=== PATIENT | male | born 1990 | race Hispanic/Latino ===

== ENCOUNTER 2016-11-11 15:38 | Inpatient (IN) | payer BC ==
[~2016-11-11 15:38] MED LIST: NARCAN 0.4 MG/1 ML ONE
[2016-11-11] MEDS ORDERED: NACL 0.9% 1000 ML 1,000 ML ONE (15:41)
[2016-11-11] MEDS ORDERED: NARCAN 0.4 MG/1 ML IV ONE (15:51)
[2016-11-11] MEDS ORDERED: NACL 0.9% 1000 ML 1,000 ML IV ONE (15:55)
--- NOTE | 2016-11-11 16:06 | Emergency Department Report ---
HPI - General Chief Complaint: Overdose Time Seen by Provider: 11/11/16 15:53 - HPI HPI: 26-year-old male presents to the emergency department by EMS from home with the complaint of possible overdose and suicide attempt. The patient became very altered over the past 2 hours. His girlfriend found him with multiple cuts to the left forearm. 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 Allegedly he still had a bottle somewhere that had a refill on it and he went to get it filled at a pharmacy. He also has some levothyroxin from a history of hypothyroidism and has Seroquel for "sleep" and Robaxin for chronic back pains but most of these medications are accounted for. The girlfriend says that she found the rest of the benzodiazepine's and flushed them down the toilet. Patient is currently altered and/or intoxicated and therefore a poor historian. Allegedly there is no past psychiatric history or any previous suicidal ideations or attempts. ED Past Medical Hx - Past Medical History Hx Hypertension: Yes Hx Congestive Heart Failure: No Hx Diabetes: No Hx Psychiatric Treatment: Yes (Drug abuse.) Hx Asthma: No Hx COPD: No Hx HIV: No Additional medical history: Hyperthyroidism - Surgical History Additional Surgical History: unknown - Social History Smoking Status: Unknown if ever smoked Substance Use Type: None - Medications Home Medications: Home Medications Medication Instructions Recorded Confirmed Last Taken Type Gabapentin [Neurontin] 600 mg PO Q8H 11/11/16 11/11/16 Unknown History Levothyroxine [Synthroid] 100 mcg PO QAM 11/11/16 11/11/16 Unknown History Quetiapine Fumarate [SEROquel XR] 200 mg PO DAILY 11/11/16 11/11/16 Unknown History Venlafaxine HCl [Venlafaxin ER] 150 mg PO QDAY 11/11/16 11/11/16 Unknown History cloNIDine [Catapres] 0.1 mg PO BID 11/11/16 11/11/16 Unknown History ED Review of Systems ROS: Stated complaint: POSS SUICIDAL ATTEMPT Other details as noted in HPI Comment: Unobtainable due to pts medical conditions Physical Exam - Physical Exam Vital Signs: Vital Signs 11/11/16 11/11/16 15:46 15:54 Temperature 97.1 F L Pulse Rate 96 H Respiratory 18 15 Rate Blood Pressure 105/62 O2 Sat by Pulse 98 100 Oximetry Physical Exam: GENERAL: Patient is ill-appearing and unresponsive. HEENT: Normocephalic. Atraumatic. Pupils equal reactive to light bilaterally. Oropharynx clear. Patient has moist mucous membranes. Pupils equal reactive to light bilaterally. NECK: Supple. Trachea is midline. CHEST/LUNGS: Clear to auscultation. Patient has snoring respirations and shallow breathing. There is some mild tachypnea. HEART/CARDIOVASCULAR: Regular. There is no tachycardia. There is no gallop rub or murmur. ABDOMEN: Abdomen is soft, nontender. Patient has normal bowel sounds. There is no abdominal distention. SKIN: Patient has multiple abrasions to the left dorsal forearm. However there is 1 gapped laceration amongst these other abrasions well. This laceration is about 2.5 cm in length, linear but gapped by a few millimeters. No surrounding erythema, purulent discharge or any current signs of infection. NEURO: The patient has no gag reflex. He does respond some to painful stimuli at first but eventually starts to become less responsive to sternal rub and nailbed pressure. Nonverbal. Does not follow any commands. MUSCULOSKELETAL: There is no tenderness or deformity. There is no limitation range of motion with passive movement. Radial pulse +2 over 4 bilaterally. Cap refill less than 2 seconds. ED Course Vital Signs 11/11/16 11/11/16 15:46 15:54 Temperature 97.1 F L Pulse Rate 96 H Respiratory 18 15 Rate Blood Pressure 105/62 O2 Sat by Pulse 98 100 Oximetry - Reevaluation(s) Reevaluation #1: Patient did not display any hypoxia, he does not have any gag reflex. Patient is doing some abnormal shallow guppy breathing. He has snoring respirations with what appears to be occasional apneic episodes. For this reason the patient was intubated. 11/11/16 17:57 - ABG Interpretation Ph: [phone] PCO2: 43 PO2: 101 Bicarbonate: 25 Interpretation: normal - Intubation Time Out Performed: Yes Paralytic: Succinylcholine Mg Given: 100 Laryngoscope: fiberoptic video scope Size: 4 ET Tube Size: 7.5 Tube Secured Depth (cm): 24 Tube Secured Location: teeth Tube Placement Confirmation: visualized tube passing t, equal breath sounds bilat, no breath sounds over epi, confirmation by capnometr Patient Tolerated Procedure: well Intubation Complications: none - Laceration /Wound Repair Left Dorsal Arm Wound Length (cm): 2 Wound's Depth, Shape: superficial, linear Wound Explored: clean Irrigated w/ Saline (ccs): 50 Anesthesia: 1% Lidocaine Volume Anesthetic (ccs): 2 Wound Repaired With: sutures Suture Size/Type: 4:0, proline Number of Sutures: 7 Layer Closure?: No Sterile Dressing Applied?: Yes ED Medical Decision Making - Lab Data Result diagrams: 11/11/16 15:53 11/11/16 15:55 - EKG Data -: EKG Interpreted by Me EKG shows normal: sinus rhythm, axis (RAD), intervals, QRS complexes, ST-T waves Rate: normal - EKG Data When compared to previous EKG there are: previous EKG unavailable Interpretation: normal EKG - Radiology Data Radiology results: report reviewed, image reviewed interpreted by me: NChest x-ray did not show any acute process. Heart is normal shape and size. No effusions. No pneumothorax. No signs of pneumonia seen. Repeat postintubation chest x-ray shows no change in the patient's lungs or heart but there is now ET tube in place between the clavicular heads. CT of head without contrast does not show any bleed, shift, mass or any acute process. - Medical Decision Making 26-year-old male who appears to have attempted suicide by overdose of polypharmacy as well as some self inflicted wounds to the left forearm. One of them required suture to close. Tetanus vaccination was given. Patient started having short shallow snoring respirations and had no gag reflex so patient was intubated for airway protection. Urine drug screen positive for benzos, methadone and barbituates. Otherwise the patient's labs are mostly unremarkable and do not show an etiology of the patient's altered mental status. CT of the head does not show any bleed, shift, mass or any acute process. Patient was made a 1013 secondary to his suicidal ideations and attempt. Admitted to the ICU. - Differential Diagnosis polysubstance abuse, suicidal ideations, laceration, brain bleed Critical Care Time: Yes Critical care time in (mins) excluding proc time.: 35 Critical care attestation.: If time is entered above; I have spent that time in minutes in the direct care of this critically ill patient, excluding procedure time. Critical care time was done on this patient and doing his initial evaluation, multiple re- evaluations, ordering evaluation of labs, ordering and interpretation of arterial blood gas, discussion with family, disposition planning. This does not include the intubation or laceration repair procedures. Critical Care Time: 35 mins ED Disposition Clinical Impression: Overdose, Suicide attempt, Laceration, Altered mental status, Injury, self- inflicted, Polysubstance abuse Respiratory failure Qualifiers: Chronicity: acute Respiratory failure complication: hypoxia Qualified Code(s): J96.01 - Acute respiratory failure with hypoxia Disposition: OP ADMITTED IP TO THIS HOSP Is pt being admited?: Yes Condition: Serious Time of Disposition: 19:48
[2016-11-11 16:14] LABS: Urine Drugs of Abuse Note Disclamer
[2016-11-11 16:30] LABS: Bilirubin,Urine NEG (Negative); Blood,Urine NEG (Negative); Ketones,Urine NEG (Negative); Leukocyte Esterase,Urine NEG (Negative); Mucus,Urine FEW /HPF; Nitrite,Urine NEG (Negative); Urobilinogen,Urine < 2.0 mg/dL (<2.0)
[2016-11-11 16:37] LABS: Basophils % (Auto) 0.7 % (0.0-1.8); Eosinophils % (Auto) 2.1 % (0.0-4.3); Hematocrit 48.1 % (35.5-45.6); Hemoglobin 16.1 gm/dl (11.8-15.2); Mean Corpuscular HGB Conc 34 % (32-34); Mean Corpuscular Hemoglobin 30 pg (28-32); Mean Corpuscular Volume 91 fl (84-94); Platelet Count 264 K/mm3 (140-440); Red Cell Distribution Width 13.5 % (13.2-15.2); White Blood Count 10.9 K/mm3 (4.5-11.0)
--- NOTE | 2016-11-11 16:38 | XRay Report ---
PORTABLE CHEST: Psych clearance An AP portable view of the chest demonstrates a normal cardiac contour considering the limits of this technique. The lungs are clear with no evidence of infiltrate, fluid or failure. IMPRESSION: Normal portable chest.
[2016-11-11] MEDS ORDERED: DIPRIVAN 10 MG/ML 1,000 MG/100 ML BOTTLE IV ONE (16:40)
[2016-11-11 16:59] LABS: Albumin 4.4 g/dL (3.9-5); Albumin/Globulin Ratio 1.4 %; BUN/Creatinine Ratio 11.66; Bilirubin,Total 0.3 mg/dL (0.1-1.2); Blood Urea Nitrogen 7 mg/dL (9-20); Calcium 9.8 mg/dL (8.4-10.2); Carbon Dioxide 24 mmol/L (22-30); Chloride 103.6 mmol/L (98-107); Glucose 86 mg/dL (75-100); Sodium 142 mmol/L (137-145); Total Protein 7.5 g/dL (6.3-8.2)
[2016-11-11] MEDS ORDERED: VASELINE LIP THERAPY TP PRN (16:59)
[2016-11-11] MEDS ORDERED: ARTIFICIAL TEARS OPHTH OINT OU PRN (16:59)
[2016-11-11] MEDS: DIPRIVAN 10 MG/ML 1,000 MG/100 ML BOTTLE IV SCH ×2 (17:00→23:02)
[2016-11-11] MEDS ORDERED: NACL 0.9% 500 ML IV SCH (17:00)
[2016-11-11] MEDS ORDERED: NACL ONE (17:27)
[2016-11-11 18:00] LABS: Alanine Aminotransferase 17 units/L (7-56); Alkaline Phosphatase 68 units/L (35-129); Anion Gap 19 mmol/L; Potassium 4.8 mmol/L (3.6-5.0)
--- NOTE | 2016-11-11 18:11 | Admit Criteria Form ---
Admission Criteria Documentation: DRUG INGESTION OR OVERDOSE Clinical Indications for Admission to Inpatient Care ( Place 'X' for any and all applicable criteria): Admission is indicated for severe toxicity as indicated by ANY ONE of the following(1)(2)(3)(4)(5)(6): [ X]I. Inpatient admission required rather than observation care (Also use Drug Ingestion or Overdose: Observation Care guideline as appropriate) because of ANY ONE of the following: [ ]a) Altered mental status that is severe or persistent [ ]b) Clinical finding (eg, metabolic acidosis, hypoglycemia, bradycardia) that is severe or persistent [ ]c) Toxic drug level that is persistent [ X]d) Psychiatric risk status not acceptable for outpatient management [ ]e) Continuous intravenous infusion of anticoagulation, platelet inhibitor, vasoactive, or antiarrhythmic medication (15)(16) [ ]f) Other condition, treatment or monitoring requiring inpatient admission [ ]II. Respiratory abnormalities [ ]III. Specific finding indicating severe and likely prolonged drug toxicity [ ]IV. Hemodynamic instability [ ]V. Dangerous arrhythmia [ ]. Hypertension requiring inpatient treatment Extended stay beyond goal length of stay may be needed for (4): [ ]a) Neurologic or respiratory compromise [ ]b) Hemodynamic instability [ ]c) Persistent toxic drug levels (25) [ ]d) Severe drug toxicities or complications [ ]e) Ongoing antidote treatment (eg, acetaminophen overdose)(5) [ ]f) Older patients(65 years or older) The original [employer] content created by [employer] has been revised. The portions of the content which have been revised are identified through the use of italic text or in bold, and [email or web address] has neither reviewed nor approved the modified material. All other unmodified content is copyright [facility] [email or web address]. Please see references footnoted in the original [facility] [employer] edition 2016 Admission Criteria Met: Yes
[2016-11-11] MEDS ORDERED: XYLOCAINE 1% 20 mL INFILTRATI ONE (18:24)
[2016-11-11 18:34] LABS: ISTAT Base Excess 0; ISTAT HCO3 25.2; ISTAT PCO2 43.9 (35-45); ISTAT PH 7.368 (7.35-7.45); ISTAT PO2 101 (80-105); ISTAT SO2 98; ISTAT TCO2 27
[2016-11-11] MEDS ORDERED: NACL 0.9% 500 ML IR ONE (18:34)
[2016-11-11] MEDS ORDERED: TENIVAC IM ONE (18:36)
--- NOTE | 2016-11-11 18:42 | History and Physical Report ---
History of Present Illness Chief complaint: Suicide Attempt History of present illness: 26 YO Male with Hypothyroidism, previous Suicide attempt, Polysubstance Abuse, Depression presents to ED for evaluation. Pt found down and unresponsive by his girlfriend with multiple arm lacerations. Pt seen and evaluated in Ed and found unable to protect his airway. Pt intubated and placed on vent support. Pt is unable to provide history, but histoyr is taken from ED staff and family. No reports of fever, chills, CP, palpitaions, NVD, trauma, seizures, vertigo, or recent ill contacts. Past History Past Medical History: hypothyroidism Past Surgical History: No surgical history, Other (reviewed) Social history: single, prescription drug abuse. denies: smoking, alcohol abuse Family history: no significant family history, other (reviewed) Medications and Allergies Allergies Allergy/AdvReac Type Severity Reaction Status Date / Time No Known Allergies Allergy Verified 04/25/16 10:15 Home Medications Medication Instructions Recorded Confirmed Last Taken Type Gabapentin [Neurontin] 600 mg PO Q8H 11/11/16 11/11/16 Unknown History Levothyroxine [Synthroid] 100 mcg PO QAM 11/11/16 11/11/16 Unknown History Quetiapine Fumarate [SEROquel XR] 200 mg PO DAILY 11/11/16 11/11/16 Unknown History Venlafaxine HCl [Venlafaxin ER] 150 mg PO QDAY 11/11/16 11/11/16 Unknown History cloNIDine [Catapres] 0.1 mg PO BID 11/11/16 11/11/16 Unknown History Active Meds: Active Medications Hydrophilic Ointment (Vaseline Lip Therapy) 1 applic TP Q2HR PRN PRN Reason: Dry Lips Propofol (Diprivan 10 Mg/Ml) 1,000 mg in 100 mls @ 3.13 mls/hr IV TITR JOAN; 5 MCG/KG/MIN PRN Reason: Protocol Last Titration: 11/11/16 18:18 Dose: 20 mcg/kg/min, 12.519 mls/hr Multi-Ingred Cream/Lotion/Oil/Oint (Artificial Tears Ophth Oint) 1 applic OU Q4HR PRN PRN Reason: Dry Eye(s) Sodium Chloride (Nacl 0.9% 500 Ml) 1 ml IV DIRECT JOAN Review of Systems ROS unobtainable: due to mental status Exam - Constitutional Vitals: Temp Pulse Resp BP Pulse Ox 97.1 F L 101 H 18 113/61 97 11/11/16 15:46 11/11/16 16:59 11/11/16 16:30 11/11/16 16:59 11/11/16 16:59 General appearance: Present: mild distress - Neck Neck: Present: supple - Respiratory Respiratory: bilateral: diminished - Cardiovascular Rhythm: regular Heart Sounds: Present: S1 & S2 - Extremities Extremities: no ischemia Peripheral Pulses: within normal limits - Abdominal General gastrointestinal: Present: soft, non-tender, non-distended - Integumentary Integumentary: Present: clear, dry, decreased turgor - Musculoskeletal Musculoskeletal: generalized weakness - Psychiatric Psychiatric: no intact judgment & insight, no memory intact Results - Labs CBC & Chem 7: 11/11/16 15:53 11/11/16 15:55 Labs: Abnormal lab results 11/11/16 11/11/16 11/11/16 Range/Units 15:53 15:55 15:55 RBC 5.30 H (3.65-5.03) M/mm3 Hgb 16.1 H (11.8-15.2) gm/dl Hct 48.1 H (35.5-45.6) % Seg Neutrophils % 70.4 H (40.0-70.0) % BUN 7 L (9-20) mg/dL Creatinine 0.6 L (0.8-1.5) mg/dL Salicylates < 0.3 L (2.8-20.0) mg/dL Assessment and Plan - Patient Problems (1) Respiratory failure Current Visit: Yes Status: Acute Qualifiers: Chronicity: acute Respiratory failure complication: hypoxia Qualified Code(s): J96.01 - Acute respiratory failure with hypoxia Plan to address problem: Wean vent as tolerated, pulmonary consulted, SBT in am, supportive care. The high probability of a clinically significant, sudden or life threatening deterioration of the [Pulmonary, cardiac] system(s) required my full and direct attention, intervention and personal management. The aggregate critical care time was [60] minutes. This time is in addition to time spent performing reported procedures but includes the following: [x] Data Review and interpretation [x] Patient assessment and monitoring of vital signs [x] Documentation [x] Medication orders and management (2) Encephalopathy acute Current Visit: Yes Status: Acute Plan to address problem: Secondary to drug overdose. continue current care. (3) Hypothyroidism Current Visit: Yes Status: Acute Qualifiers: Hypothyroidism type: H Plan to address problem: resume synthroid, (4) Polysubstance abuse Current Visit: Yes Status: Acute Plan to address problem: Psych consulted. (5) Suicide attempt by drug ingestion Current Visit: Yes Status: Acute Qualifiers: Encounter type: E Plan to address problem: [address] place, psych consulted. (6) DVT prophylaxis Current Visit: Yes Status: Acute
[2016-11-11] MEDS ORDERED: DULCOLAX PR PRN (19:16)
[2016-11-11] MEDS ORDERED: ALUM-MAG HYDROX-SIMETH 200-200-20MG/5ML PO PRN (19:16)
[2016-11-11] MEDS ORDERED: MILK OF MAGNESIA PO PRN (19:16)
--- NOTE | 2016-11-11 21:37 | Cat Scan Report ---
FINAL REPORT PROCEDURE: CT HEAD/BRAIN WO CON TECHNIQUE: Computerized tomography of the head was performed without contrast material. HISTORY: Altered mental status. COMPARISON: Prior head CT scans of April 25, 2016 and May 08, 2015 FINDINGS: Skull and scalp: Normal. Paranasal sinuses: Normal. Ventricles and subarachnoid spaces: Normal. Cerebrum: No evidence of hemorrhage, acute infarction or mass . Cerebellum and brainstem: No evidence of hemorrhage, acute infarction or mass. Vasculature: Normal. Comments: None. IMPRESSION: 1. Overall negative CT brain without contrast with no CT evidence of intracranial hemorrhage or edema or infarct or shift or distinct acute finding. 2. If there is continued concern for brain abnormality or unexplained symptoms, additional evaluation such as MRI with and without contrast recommended only if clinically indicated.
[2016-11-12 06:45] LABS: ISTAT Base Excess 2; ISTAT HCO3 26.4; ISTAT PCO2 41.1 (35-45); ISTAT PH 7.416 (7.35-7.45); ISTAT PO2 168 (80-105); ISTAT SO2 100; ISTAT TCO2 28
--- NOTE | 2016-11-12 07:52 | XRay Report ---
AP CHEST: HISTORY: Endotracheal tube placement Compared to 11/11/16 at 1609 hrs. An endotracheal tube has been inserted which terminates 4.6 cm superior to the mary. AP view of the chest demonstrates a normal mediastinal and cardiac contour with clear lungs and normal bony and soft tissue structures. IMPRESSION: Adequate placement of the endotracheal tube. Unremarkable AP chest.
[2016-11-12] MEDS ORDERED: LOVENOX SUB-Q SCH (10:00)
[2016-11-12] MEDS: DIPRIVAN 10 MG/ML 1,000 MG/100 ML BOTTLE IV SCH (10:05)
[2016-11-12] MEDS ORDERED: QUELICIN ONE (10:47)
--- NOTE | 2016-11-12 11:54 | Progress Note ---
Assessment and Plan Assessment and plan: Acute hypoxic respiratory failure. Etiology secondary to substance abuse and subsequent respiratory failure. Continue mechanical ventilation and wheezing per protocol. Pulmonary following. Polysubstance abuse. Psychiatric consultation when patient stable. Continue 1013. Acute encephalopathy. Etiology secondary to above. Continue supportive care and treating underlying causes. Hypothyroidism. Continue Synthroid. Suicide attempt. 1013. Psychiatric evaluation. DVT prophylaxis. Continue Lovenox daily. History Interval history: 26 YO Male with Hypothyroidism, previous Suicide attempt, Polysubstance Abuse, Depression presents to ED for evaluation. Pt found down and unresponsive by his girlfriend with multiple arm lacerations. Pt seen and evaluated in Ed and found unable to protect his airway. Pt intubated and placed on vent support. Patient currently remains intubated and sedated. Mother at bedside. All questions answered. Hospitalist Physical - Constitutional Vitals: Temp Pulse Resp BP Pulse Ox 97.3 F L 75 16 107/64 99 11/12/16 08:00 11/12/16 09:00 11/12/16 10:05 11/12/16 09:00 11/12/16 09:00 General appearance: Present: no acute distress - EENT Eyes: Present: PERRL, EOM intact ENT: hearing intact, clear oral mucosa, dentition normal - Neck Neck: Present: supple, normal ROM - Respiratory Respiratory effort: normal Respiratory: bilateral: diminished, rhonchi (occasional) - Cardiovascular Rhythm: regular Heart Sounds: Present: S1 & S2. Absent: gallop, rub - Extremities Extremities: no ischemia, No edema, Full ROM - Abdominal General gastrointestinal: soft, non-tender, non-distended, normal bowel sounds - Integumentary Integumentary: Present: clear, warm, dry - Neurologic Neurologic: CNII-XII intact, moves all extremities Results - Labs CBC & Chem 7: 11/11/16 15:53 11/11/16 15:55 Labs: Laboratory Last Values WBC 10.9 K/mm3 (4.5-11.0) 11/11/16 15:53 RBC 5.30 M/mm3 (3.65-5.03) H 11/11/16 15:53 Hgb 16.1 gm/dl (11.8-15.2) H 11/11/16 15:53 Hct 48.1 % (35.5-45.6) H 11/11/16 15:53 MCV 91 fl (84-94) 11/11/16 15:53 MCH 30 pg (28-32) 11/11/16 15:53 MCHC 34 % (32-34) 11/11/16 15:53 RDW 13.5 % (13.2-15.2) 11/11/16 15:53 Plt Count 264 K/mm3 (140-440) 11/11/16 15:53 Lymph % (Auto) 19.8 % (13.4-35.0) 11/11/16 15:53 [place] % (Auto) 7.0 % (0.0-7.3) 11/11/16 15:53 Eos % (Auto) 2.1 % (0.0-4.3) 11/11/16 15:53 Baso % (Auto) 0.7 % (0.0-1.8) 11/11/16 15:53 Lymph # 2.2 K/mm3 (1.2-5.4) 11/11/16 15:53 [place] # 0.8 K/mm3 (0.0-0.8) 11/11/16 15:53 Eos # 0.2 K/mm3 (0.0-0.4) 11/11/16 15:53 Baso # 0.1 K/mm3 (0.0-0.1) 11/11/16 15:53 Seg Neutrophils % 70.4 % (40.0-70.0) H 11/11/16 15:53 Seg Neutrophils # 7.7 K/mm3 (1.8-7.7) 11/11/16 15:53 POC ABG pH 7.416 (7.35-7.45) 11/12/16 06:17 POC ABG pCO2 41.1 (35-45) 11/12/16 06:17 POC ABG pO2 168 (80-105) H 11/12/16 06:17 POC ABG HCO3 26.4 11/12/16 06:17 POC ABG Total CO2 28 11/12/16 06:17 POC ABG O2 Sat 100 11/12/16 06:17 POC ABG Base Excess 2 11/12/16 06:17 FiO2 40 % 11/12/16 06:17 Sodium 142 mmol/L (137-145) 11/11/16 15:55 Potassium 4.8 mmol/L (3.6-5.0) 11/11/16 15:55 Chloride 103.6 mmol/L (98-107) 11/11/16 15:55 Carbon Dioxide 24 mmol/L (22-30) 11/11/16 15:55 Anion Gap 19 mmol/L 11/11/16 15:55 BUN 7 mg/dL (9-20) L 11/11/16 15:55 Creatinine 0.6 mg/dL (0.8-1.5) L 11/11/16 15:55 Estimated GFR > 60 ml/min 11/11/16 15:55 BUN/Creatinine Ratio 11.66 % 11/11/16 15:55 Glucose 86 mg/dL (75-100) 11/11/16 15:55 POC Glucose 75 (70-105) 11/11/16 15:50 Calcium 9.8 mg/dL (8.4-10.2) 11/11/16 15:55 Total Bilirubin 0.3 mg/dL (0.1-1.2) 11/11/16 15:55 AST 34 units/L (5-40) 11/11/16 15:55 ALT 17 units/L (7-56) 11/11/16 15:55 Alkaline Phosphatase 68 units/L (35-129) 11/11/16 15:55 Total Protein 7.5 g/dL (6.3-8.2) 11/11/16 15:55 Albumin 4.4 g/dL (3.9-5) 11/11/16 15:55 Albumin/Globulin Ratio 1.4 % 11/11/16 15:55 TSH 1.360 mlU/mL (0.270-4.200) 11/11/16 15:55 Urine Color Yellow (Yellow) 11/11/16 16:13 Urine Turbidity Clear (Clear) 11/11/16 16:13 Urine pH 6.0 (5.0-7.0) 11/11/16 16:13 Ur Specific [place] 1.023 (1.003-1.030) 11/11/16 16:13 Urine Protein 30 mg/dl mg/dL (Negative) 11/11/16 16:13 Urine Glucose (UA) Neg mg/dL (Negative) 11/11/16 16:13 Urine Ketones Neg mg/dL (Negative) 11/11/16 16:13 Urine Blood Neg (Negative) 11/11/16 16:13 Urine Nitrite Neg (Negative) 11/11/16 16:13 Urine Bilirubin Neg (Negative) 11/11/16 16:13 Urine Urobilinogen < 2.0 mg/dL (<2.0) 11/11/16 16:13 Ur Leukocyte Esterase Neg (Negative) 11/11/16 16:13 Urine WBC (Auto) 1.0 /HPF (0.0-6.0) 11/11/16 16:13 Urine RBC (Auto) 1.0 /HPF (0.0-6.0) 11/11/16 16:13 Urine Mucus Few /HPF 11/11/16 16:13 Salicylates < 0.3 mg/dL (2.8-20.0) L 11/11/16 15:55 Urine Opiates Screen Presumptive negative 11/11/16 16:13 Urine Methadone Screen Presumptive positive 11/11/16 16:13 Acetaminophen < 15.0 ug/mL (10.0-30.0) 11/11/16 16:20 Ur Barbiturates Screen Presumptive positive 11/11/16 16:13 Ur Phencyclidine Scrn Presumptive negative 11/11/16 16:13 Ur Amphetamines Screen Presumptive negative 11/11/16 16:13 U Benzodiazepines Scrn Presumptive positive 11/11/16 16:13 Urine Cocaine Screen Presumptive negative 11/11/16 16:13 U Marijuana (THC) Screen Presumptive negative 11/11/16 16:13 Drugs of Abuse Note Disclamer 11/11/16 16:13 Plasma/Serum Alcohol < 0.01 gm% (0-0.07) 11/11/16 15:55
--- NOTE | 2016-11-12 12:24 | Consultation ---
History of Present Illness Consult date: 11/12/16 Requesting physician: ROYAL CARTAGENA Reason for consult: hypoxemia, other History of present illness: 26 y/o male intubated for airway protection secondary to acute encephalopathy. Mother at bedside. Per her, patient had recent stressor with girlfriend asking him to leave as they were living together. Currently on Propofol, sedated. CXR is clear and minimal vent settings. Past History Past Medical History: hypothyroidism Past Surgical History: No surgical history, Other (reviewed) Social history: single, prescription drug abuse. denies: smoking, alcohol abuse Family history: no significant family history, other (reviewed) Medications and Allergies Allergies Allergy/AdvReac Type Severity Reaction Status Date / Time No Known Allergies Allergy Verified 04/25/16 10:15 Home Medications Medication Instructions Recorded Confirmed Last Taken Type Gabapentin [Neurontin] 600 mg PO Q8H 11/11/16 11/11/16 Unknown History Levothyroxine [Synthroid] 100 mcg PO QAM 11/11/16 11/11/16 Unknown History Quetiapine Fumarate [SEROquel XR] 200 mg PO DAILY 11/11/16 11/11/16 Unknown History Venlafaxine HCl [Venlafaxin ER] 150 mg PO QDAY 11/11/16 11/11/16 Unknown History cloNIDine [Catapres] 0.1 mg PO BID 11/11/16 11/11/16 Unknown History Active Meds: Active Medications Al Hydrox/Mg Hydrox/Simethicone (Alum-Mag Hydrox-Simeth [id number]/5ml) 30 ml PO Q4H PRN PRN Reason: Indigestion Bisacodyl (Dulcolax) 10 mg [place] QDAY PRN PRN Reason: constipation unrelieved by MOM Enoxaparin Sodium (Lovenox) 40 mg SUB-Q QDAY@1000 JOAN Hydrophilic Ointment (Vaseline Lip Therapy) 1 applic TP Q2HR PRN PRN Reason: Dry Lips Propofol (Diprivan 10 Mg/Ml) 1,000 mg in 100 mls @ 3.13 mls/hr IV TITR JOAN; 5 MCG/KG/MIN PRN Reason: Protocol Last Admin: 11/12/16 10:05 Dose: 30 mcg/kg/min, 18.779 mls/hr Magnesium Hydroxide (Milk Of Magnesia) 30 ml PO Q4H PRN PRN Reason: Constipation Multi-Ingred Cream/Lotion/Oil/Oint (Artificial Tears Ophth Oint) 1 applic OU Q4HR PRN PRN Reason: Dry Eye(s) Sodium Chloride (Nacl 0.9% 500 Ml) 1 ml IV DIRECT JOAN Review of Systems ROS unobtainable: due to endotracheal tube, due to mental status Physical Examination Vital signs: Vital Signs Temp Pulse Resp BP Pulse Ox 97.1 F L 96 H 18 105/62 98 11/11/16 15:46 11/11/16 15:46 11/11/16 15:46 11/11/16 15:46 11/11/16 15:46 General appearance: no acute distress, comatose (secondary to sedation) Eyes: non-icteric ENT: other (orally intubated) Effort: normal Ascultation: Bilateral: clear Percussion: Bilateral: not dull Cardiovascular: regular rate and rhythm Gastrointestinal: normoactive bowel sounds Integumentary: normal Extremities: no edema Results - Laboratory Findings CBC and BMP: 11/11/16 15:53 11/11/16 15:55 ABG POC ABG pH 7.416 (7.35-7.45) 11/12/16 06:17 POC ABG pCO2 41.1 (35-45) 11/12/16 06:17 POC ABG pO2 168 (80-105) H 11/12/16 06:17 POC ABG HCO3 26.4 11/12/16 06:17 POC ABG Total CO2 28 11/12/16 06:17 POC ABG O2 Sat 100 11/12/16 06:17 Abnormal lab findings: Abnormal Labs 11/12/16 06:17 POC ABG pO2 168 H - Diagnostic Findings Chest x-ray: image reviewed (clear, no acute evidence of disease) Assessment and Plan 26 y/o male with acute respiratory failure secondary to overdose, possible suicide attempt. 1. Discontinue sedation 2. Extubate 3. Psych consult 4. Patient was not taking methadone, He had just been discharged from rehab for substance abuse was was taking suboxone. This is likely why that was positive on his UDS CCT 31 minutes.
[2016-11-12] MEDS: HABITROL TD SCH (18:30)
[2016-11-12] MEDS: ATIVAN IV PRN ×2 (21:35→23:46)
[2016-11-12] MEDS: LIBRIUM PO PRN (22:40)
[2016-11-12] MEDS: ZOFRAN IV PRN (23:03)
[2016-11-13] MEDS: ATIVAN IV PRN ×9 (01:25→23:36)
[2016-11-13] MEDS: LIBRIUM PO PRN ×3 (02:53→05:00)
[2016-11-13] MEDS: ZOFRAN IV PRN (03:24)
[2016-11-13 04:52] LABS: Anion Gap 20 mmol/L; BUN/Creatinine Ratio 13.33; Blood Urea Nitrogen 8 mg/dL (9-20); Calcium 9.2 mg/dL (8.4-10.2); Carbon Dioxide 21 mmol/L (22-30); Chloride 103.4 mmol/L (98-107); Glucose 73 mg/dL (75-100); Potassium 3.7 mmol/L (3.6-5.0); Sodium 141 mmol/L (137-145)
[2016-11-13 04:53] LABS: Basophils % (Auto) 0.5 % (0.0-1.8); Eosinophils % (Auto) 0.4 % (0.0-4.3); Hematocrit 45.4 % (35.5-45.6); Hemoglobin 15.3 gm/dl (11.8-15.2); Mean Corpuscular HGB Conc 34 % (32-34); Mean Corpuscular Hemoglobin 30 pg (28-32); Mean Corpuscular Volume 90 fl (84-94); Platelet Count 209 K/mm3 (140-440); Red Blood Count 5.07 M/mm3 (3.65-5.03); Red Cell Distribution Width 13.2 % (13.2-15.2); White Blood Count 11.6 K/mm3 (4.5-11.0)
[2016-11-13] MEDS ORDERED: LOPRESSOR PO ONE (05:19)
--- NOTE | 2016-11-13 09:22 | Progress Note ---
Assessment and Plan 26 y/o male with acute respiratory failure secondary to overdose, possible suicide attempt. 1. Psych Consult 2. Determine need for continued 1013, will likely need inpatient facility at discharge 3. Medically stable, transfer out of ICU or to inpatient facility. 4. Patient was not taking methadone, He had just been discharged from rehab for substance abuse was was taking suboxone. This is likely why that was positive on his UDS Subjective Date of service: 11/13/16 Interval history: Successful extubation on yesterday. No acute events reported overnight Objective Vital Signs - 12hr 11/12/16 11/12/16 11/12/16 21:21 21:31 21:41 Temperature Pulse Rate 104 H 109 H 100 H Respiratory 16 24 16 Rate Respiratory Rate [ Generalized] Respiratory Rate [Left Arm] Blood Pressure 136/89 146/107 139/81 O2 Sat by Pulse 100 100 98 Oximetry 11/12/16 11/12/16 11/12/16 21:51 22:00 22:11 Temperature Pulse Rate 96 H 108 H 118 H Respiratory 15 14 15 Rate Respiratory Rate [ Generalized] Respiratory Rate [Left Arm] Blood Pressure 151/87 148/84 148/84 O2 Sat by Pulse 99 93 96 Oximetry 11/12/16 11/12/16 11/12/16 22:21 22:45 22:51 Temperature Pulse Rate 114 H 107 H 103 H Respiratory 13 14 13 Rate Respiratory Rate [ Generalized] Respiratory Rate [Left Arm] Blood Pressure 129/87 148/92 148/92 O2 Sat by Pulse 95 95 Oximetry 11/12/16 11/12/16 11/12/16 23:00 23:11 23:21 Temperature Pulse Rate 115 H 110 H 113 H Respiratory 12 12 10 L Rate Respiratory 27 H Rate [ Generalized] Respiratory 14 Rate [Left Arm] Blood Pressure 148/104 129/87 129/87 O2 Sat by Pulse 96 88 87 Oximetry 11/12/16 11/12/16 11/12/16 23:30 23:41 23:51 Temperature Pulse Rate 119 H 105 H 117 H Respiratory 14 10 L 11 L Rate Respiratory Rate [ Generalized] Respiratory Rate [Left Arm] Blood Pressure 159/103 159/103 139/84 O2 Sat by Pulse 98 88 Oximetry 11/13/16 11/13/16 11/13/16 00:00 00:11 00:21 Temperature 97.8 F Pulse Rate 113 H 113 H 108 H Respiratory 12 18 8 L Rate Respiratory Rate [ Generalized] Respiratory Rate [Left Arm] Blood Pressure 145/86 145/86 145/86 O2 Sat by Pulse 97 98 95 Oximetry 11/13/16 11/13/16 11/13/16 00:30 00:41 00:51 Temperature Pulse Rate 112 H 115 H 109 H Respiratory 22 12 12 Rate Respiratory Rate [ Generalized] Respiratory Rate [Left Arm] Blood Pressure 156/91 156/91 156/91 O2 Sat by Pulse 92 71 L 98 Oximetry 11/13/16 11/13/16 11/13/16 01:01 01:11 01:21 Temperature Pulse Rate 126 H 107 H 95 H Respiratory 20 14 18 Rate Respiratory Rate [ Generalized] Respiratory Rate [Left Arm] Blood Pressure 134/89 134/89 134/89 O2 Sat by Pulse 79 L 95 90 Oximetry 11/13/16 11/13/16 11/13/16 01:31 01:41 01:51 Temperature Pulse Rate 113 H 103 H 114 H Respiratory 11 L 27 H 19 Rate Respiratory Rate [ Generalized] Respiratory Rate [Left Arm] Blood Pressure 130/97 130/97 130/97 O2 Sat by Pulse 97 98 Oximetry 11/13/16 11/13/16 11/13/16 02:01 02:11 02:21 Temperature Pulse Rate 112 H 108 H 123 H Respiratory 10 L 9 L 12 Rate Respiratory Rate [ Generalized] Respiratory Rate [Left Arm] Blood Pressure 146/104 146/104 146/104 O2 Sat by Pulse 93 98 80 L Oximetry 11/13/16 11/13/16 11/13/16 02:30 02:41 02:51 Temperature Pulse Rate 112 H 92 H 98 H Respiratory 12 13 13 Rate Respiratory Rate [ Generalized] Respiratory Rate [Left Arm] Blood Pressure 154/99 154/99 154/99 O2 Sat by Pulse 96 97 Oximetry 11/13/16 11/13/16 11/13/16 03:00 03:11 03:21 Temperature Pulse Rate 126 H 110 H 97 H Respiratory 13 20 15 Rate Respiratory 15 Rate [ Generalized] Respiratory 29 H Rate [Left Arm] Blood Pressure 158/103 158/103 143/87 O2 Sat by Pulse 84 99 98 Oximetry 11/13/16 11/13/16 11/13/16 03:31 03:37 03:41 Temperature Pulse Rate 128 H 107 H Respiratory 19 14 22 Rate Respiratory Rate [ Generalized] Respiratory Rate [Left Arm] Blood Pressure 163/88 163/88 O2 Sat by Pulse 97 100 Oximetry 11/13/16 11/13/16 11/13/16 03:51 04:00 04:11 Temperature Pulse Rate 100 H 108 H 113 H Respiratory 20 11 L 10 L Rate Respiratory Rate [ Generalized] Respiratory Rate [Left Arm] Blood Pressure 163/88 160/129 160/129 O2 Sat by Pulse 97 95 98 Oximetry 11/13/16 11/13/16 11/13/16 04:21 04:30 04:37 Temperature 97.9 F Pulse Rate 99 H 111 H Respiratory 15 12 Rate Respiratory Rate [ Generalized] Respiratory Rate [Left Arm] Blood Pressure 160/129 170/128 O2 Sat by Pulse 96 96 Oximetry 11/13/16 11/13/16 11/13/16 04:41 04:51 05:00 Temperature Pulse Rate 113 H 96 H 105 H Respiratory 17 14 17 Rate Respiratory Rate [ Generalized] Respiratory Rate [Left Arm] Blood Pressure 170/128 170/128 161/117 O2 Sat by Pulse 95 97 96 Oximetry 11/13/16 11/13/16 11/13/16 05:11 05:15 05:21 Temperature Pulse Rate 107 H 118 H 92 H Respiratory 19 11 L Rate Respiratory Rate [ Generalized] Respiratory Rate [Left Arm] Blood Pressure 161/117 170/118 161/117 O2 Sat by Pulse 96 97 Oximetry 11/13/16 11/13/16 11/13/16 05:31 05:41 05:51 Temperature Pulse Rate 109 H 117 H Respiratory 13 8 L 16 Rate Respiratory Rate [ Generalized] Respiratory Rate [Left Arm] Blood Pressure 129/73 129/73 129/73 O2 Sat by Pulse 96 97 95 Oximetry 11/13/16 11/13/16 11/13/16 06:01 06:11 06:21 Temperature Pulse Rate 99 H 107 H 119 H Respiratory 10 L 18 28 H Rate Respiratory Rate [ Generalized] Respiratory Rate [Left Arm] Blood Pressure 137/94 137/94 137/94 O2 Sat by Pulse 94 97 97 Oximetry 11/13/16 11/13/16 11/13/16 06:30 06:52 07:00 Temperature Pulse Rate 130 H 100 H 97 H Respiratory 18 13 17 Rate Respiratory 27 H Rate [ Generalized] Respiratory 22 Rate [Left Arm] Blood Pressure 142/112 142/112 133/82 O2 Sat by Pulse 98 99 Oximetry 11/13/16 11/13/16 07:11 07:21 Temperature Pulse Rate 103 H 101 H Respiratory 14 13 Rate Respiratory Rate [ Generalized] Respiratory Rate [Left Arm] Blood Pressure 149/99 149/99 O2 Sat by Pulse 98 98 Oximetry Constitutional: no acute distress Eyes: non-icteric ENT: other (orally intubated) Effort: normal Ascultation: Bilateral: clear Percussion: Bilateral: not dull Cardiovascular: regular rate and rhythm Gastrointestinal: normoactive bowel sounds Integumentary: normal Extremities: no edema CBC and BMP: 11/13/16 03:28 11/13/16 03:28 ABG, PT/INR, D-dimer: ABG POC ABG pH 7.416 (7.35-7.45) 11/12/16 06:17 POC ABG pCO2 41.1 (35-45) 11/12/16 06:17 POC ABG pO2 168 (80-105) H 11/12/16 06:17 POC ABG HCO3 26.4 11/12/16 06:17 POC ABG Total CO2 11/12/16 06:17 POC ABG O2 Sat 100 11/12/16 06:17 Abnormal lab findings: Abnormal Labs 11/12/16 11/13/16 11/13/16 06:17 03:28 03:28 WBC 11.6 H RBC 5.07 H Hgb 15.3 H Lymph % (Auto) 11.5 L Seg Neutrophils % 81.9 H Seg Neutrophils # 9.5 H POC ABG pO2 168 H Carbon Dioxide 21 L BUN 8 L Creatinine 0.6 L Glucose 73 L
[2016-11-13] MEDS: LOVENOX SUB-Q SCH (10:59)
--- NOTE | 2016-11-13 11:23 | Progress Note ---
Assessment and Plan Assessment and plan: Patient is a 26-year-old man with history of hypothyroidism, htn and major depression disorder with prior suicidal attempt who presented with another suicidal attempt with drug overdose leading to acute hypoxic respiratory failure on arrival. Patient has been extubated. -Acute hypoxic respiratory failure status post intubation and extubation, doing well discussed with critical care may be transferred to the floor -Drug overdose and suicidal attempt: Continue 1013 and mental health follow-up -Acute encephalopathy due to above, resolved -DVT prophylaxis: scd and sq lovenox -Disposition: Okay to transfer out of ICU per critical care medicine specialist ; placement to inpatient psychiatry facility pending History Interval history: Patient seen and examined, follow up for drug overdose and suicidal attempt. pt denies suicidal thoughts. No cp/sob/n/v reported. Hospitalist Physical - Physical exam Narrative exam: GEN: WDWN, NAD, AWAKE, ALERT, ORIENTATED 3 CVS: RRR, NORMAL S1S2 LUNGS/CHEST: CTA B, NORMAL CHEST EXPANSION B, GOOD AIR ENTRY B ABD: SOFT NTND, GBS, NO REBOUND OR GUARDING EXT/SKIN: NO SIGNIFICANT EDEMA, CUTS ON ARMS MSK: FROM X 4 EXTREMITIES NEURO: CN 2-12 GROSSLY INTACT, NO new FOCAL DEFICITS PSY: CALM - Constitutional Vitals: Temp Pulse Resp BP Pulse Ox 97.9 F 101 H 13 149/99 97 11/13/16 04:37 11/13/16 07:21 11/13/16 07:21 11/13/16 07:21 11/13/16 10:47 General appearance: Present: no acute distress Results - Labs CBC & Chem 7: 11/13/16 03:28 11/13/16 03:28 Labs: Laboratory Last Values WBC 11.6 K/mm3 (4.5-11.0) H 11/13/16 03:28 RBC 5.07 M/mm3 (3.65-5.03) H 11/13/16 03:28 Hgb 15.3 gm/dl (11.8-15.2) H 11/13/16 03:28 Hct 45.4 % (35.5-45.6) 11/13/16 03:28 MCV 90 fl (84-94) 11/13/16 03:28 MCH 30 pg (28-32) 11/13/16 03:28 MCHC 34 % (32-34) 11/13/16 03:28 RDW 13.2 % (13.2-15.2) 11/13/16 03:28 Plt Count 209 K/mm3 (140-440) 11/13/16 03:28 Lymph % (Auto) 11.5 % (13.4-35.0) L 11/13/16 03:28 [place] % (Auto) 5.7 % (0.0-7.3) 11/13/16 03:28 Eos % (Auto) 0.4 % (0.0-4.3) 11/13/16 03:28 Baso % (Auto) 0.5 % (0.0-1.8) 11/13/16 03:28 Lymph # 1.3 K/mm3 (1.2-5.4) 11/13/16 03:28 [place] # 0.7 K/mm3 (0.0-0.8) 11/13/16 03:28 Eos # 0.0 K/mm3 (0.0-0.4) 11/13/16 03:28 Baso # 0.1 K/mm3 (0.0-0.1) 11/13/16 03:28 Seg Neutrophils % 81.9 % (40.0-70.0) H 11/13/16 03:28 Seg Neutrophils # 9.5 K/mm3 (1.8-7.7) H 11/13/16 03:28 POC ABG pH 7.416 (7.35-7.45) 11/12/16 06:17 POC ABG pCO2 41.1 (35-45) 11/12/16 06:17 POC ABG pO2 168 (80-105) H 11/12/16 06:17 POC ABG HCO3 26.4 11/12/16 06:17 POC ABG Total CO2 28 11/12/16 06:17 POC ABG O2 Sat 100 11/12/16 06:17 POC ABG Base Excess 2 11/12/16 06:17 FiO2 40 % 11/12/16 06:17 Sodium 141 mmol/L (137-145) 11/13/16 03:28 Potassium 3.7 mmol/L (3.6-5.0) D 11/13/16 03:28 Chloride 103.4 mmol/L (98-107) 11/13/16 03:28 Carbon Dioxide 21 mmol/L (22-30) L 11/13/16 03:28 Anion Gap 20 mmol/L 11/13/16 03:28 BUN 8 mg/dL (9-20) L 11/13/16 03:28 Creatinine 0.6 mg/dL (0.8-1.5) L 11/13/16 03:28 Estimated GFR > 60 ml/min 11/13/16 03:28 BUN/Creatinine Ratio 13.33 % 11/13/16 03:28 Glucose 73 mg/dL (75-100) L 11/13/16 03:28 POC Glucose 75 (70-105) 11/11/16 15:50 Calcium 9.2 mg/dL (8.4-10.2) 11/13/16 03:28 Total Bilirubin 0.3 mg/dL (0.1-1.2) 11/11/16 15:55 AST 34 units/L (5-40) 11/11/16 15:55 ALT 17 units/L (7-56) 11/11/16 15:55 Alkaline Phosphatase 68 units/L (35-129) 11/11/16 15:55 Total Protein 7.5 g/dL (6.3-8.2) 11/11/16 15:55 Albumin 4.4 g/dL (3.9-5) 11/11/16 15:55 Albumin/Globulin Ratio 1.4 % 11/11/16 15:55 TSH 1.360 mlU/mL (0.270-4.200) 11/11/16 15:55 Urine Color Yellow (Yellow) 11/11/16 16:13 Urine Turbidity Clear (Clear) 11/11/16 16:13 Urine pH 6.0 (5.0-7.0) 11/11/16 16:13 Ur Specific [place] 1.023 (1.003-1.030) 11/11/16 16:13 Urine Protein 30 mg/dl mg/dL (Negative) 11/11/16 16:13 Urine Glucose (UA) Neg mg/dL (Negative) 11/11/16 16:13 Urine Ketones Neg mg/dL (Negative) 11/11/16 16:13 Urine Blood Neg (Negative) 11/11/16 16:13 Urine Nitrite Neg (Negative) 11/11/16 16:13 Urine Bilirubin Neg (Negative) 11/11/16 16:13 Urine Urobilinogen < 2.0 mg/dL (<2.0) 11/11/16 16:13 Ur Leukocyte Esterase Neg (Negative) 11/11/16 16:13 Urine WBC (Auto) 1.0 /HPF (0.0-6.0) 11/11/16 16:13 Urine RBC (Auto) 1.0 /HPF (0.0-6.0) 11/11/16 16:13 Urine Mucus Few /HPF 11/11/16 16:13 Salicylates < 0.3 mg/dL (2.8-20.0) L 11/11/16 15:55 Urine Opiates Screen Presumptive negative 11/11/16 16:13 Urine Methadone Screen Presumptive positive 11/11/16 16:13 Acetaminophen < 15.0 ug/mL (10.0-30.0) 11/11/16 16:20 Ur Barbiturates Screen Presumptive positive 11/11/16 16:13 Ur Phencyclidine Scrn Presumptive negative 11/11/16 16:13 Ur Amphetamines Screen Presumptive negative 11/11/16 16:13 U Benzodiazepines Scrn Presumptive positive 11/11/16 16:13 Urine Cocaine Screen Presumptive negative 11/11/16 16:13 U Marijuana (THC) Screen Presumptive negative 11/11/16 16:13 Drugs of Abuse Note Disclamer 11/11/16 16:13 Plasma/Serum Alcohol < 0.01 gm% (0-0.07) 11/11/16 15:55
[2016-11-13] MEDS: NEURONTIN PO SCH ×2 (15:13→23:36)
[2016-11-13] MEDS: CATAPRES PO SCH ×2 (15:14→23:37)
[2016-11-13] MEDS: EFFEXOR XR PO SCH (15:15)
[2016-11-13] MEDS: HABITROL TD SCH (18:31)
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
[2016-11-14 05:09] LABS: Hematocrit 47.1 % (35.5-45.6); Hemoglobin 15.9 gm/dl (11.8-15.2); Mean Corpuscular HGB Conc 34 % (32-34); Mean Corpuscular Hemoglobin 31 pg (28-32); Mean Corpuscular Volume 90 fl (84-94); Platelet Count 203 K/mm3 (140-440); Red Blood Count 5.22 M/mm3 (3.65-5.03); Red Cell Distribution Width 13.3 % (13.2-15.2); White Blood Count 10.2 K/mm3 (4.5-11.0)
[2016-11-14 05:32] LABS: Anion Gap 20 mmol/L; Blood Urea Nitrogen 7 mg/dL (9-20); Calcium 9.3 mg/dL (8.4-10.2); Carbon Dioxide 20 mmol/L (22-30); Chloride 104.7 mmol/L (98-107); Glucose 78 mg/dL (75-100); Potassium 3.8 mmol/L (3.6-5.0); Sodium 141 mmol/L (137-145)
[2016-11-14] MEDS: SYNTHROID PO SCH (07:03)
[2016-11-14] MEDS: NEURONTIN PO SCH ×3 (07:03→22:46)
[2016-11-14] MEDS: ATIVAN IV PRN ×4 (07:13→20:57)
[2016-11-14] MEDS: EFFEXOR XR PO SCH (10:27)
[2016-11-14] MEDS: CATAPRES PO SCH ×2 (10:27→22:45)
[2016-11-14] MEDS: LOVENOX SUB-Q SCH (10:27)
--- NOTE | 2016-11-14 12:17 | Progress Note ---
Assessment and Plan Assessment and plan: Patient is a 26-year-old man with history of hypothyroidism, htn and major depression disorder with prior suicidal attempt who presented with another suicidal attempt with drug overdose leading to acute hypoxic respiratory failure on arrival. Patient has been extubated. -Acute hypoxic respiratory failure status post intubation and extubation, doing well discussed with critical care may be transferred to the floor -Drug overdose and suicidal attempt: Continue 1013 and mental health follow-up -Acute encephalopathy due to above, resolved -DVT prophylaxis: scd and sq lovenox -Disposition: Okay to transfer out of ICU per critical care medicine specialist ; placement to inpatient psychiatry facility pending New issues seizure-like activity likely due to alcohol withdrawals, current CIWA score is 8, sitter at bedside watching for safeyt, added telemetry monitoring History Interval history: Patient seen and examined, follow up for drug overdose and suicidal attempt. pt denies suicidal thoughts. No cp/sob/n/v reported. Overnight he had seizure- like activity and again this morning==> I inquiried about transfer back to ICU and ICU charge nurse Donya spoke with Dr. Blanton ([facility]) and notified me that patient doesn't need to be sent to ICU because patient is stable Hospitalist Physical - Physical exam Narrative exam: GEN: WDWN, NAD, AWAKE, ALERT, ORIENTATED 3 CVS: Regular tachycardic, NORMAL S1S2 LUNGS/CHEST: CTA B, NORMAL CHEST EXPANSION B, GOOD AIR ENTRY B ABD: SOFT NTND, GBS, NO REBOUND OR GUARDING EXT/SKIN: NO SIGNIFICANT EDEMA, CUTS ON ARMS MSK: FROM X 4 EXTREMITIES NEURO: CN 2-12 GROSSLY INTACT, intention tremors, no pronator drift, no isolated weakness PSY: CALM - Constitutional Vitals: Temp Pulse Resp BP Pulse Ox 98.2 F 124 H 22 130/80 97 11/14/16 09:15 11/14/16 10:27 11/14/16 09:15 11/14/16 10:27 11/14/16 09:20 General appearance: Present: no acute distress Results - Labs CBC & Chem 7: 11/14/16 04:45 11/14/16 04:45 Labs: Laboratory Last Values WBC 10.2 K/mm3 (4.5-11.0) 11/14/16 04:45 RBC 5.22 M/mm3 (3.65-5.03) H 11/14/16 04:45 Hgb 15.9 gm/dl (11.8-15.2) H 11/14/16 04:45 Hct 47.1 % (35.5-45.6) H 11/14/16 04:45 MCV 90 fl (84-94) 11/14/16 04:45 MCH 31 pg (28-32) 11/14/16 04:45 MCHC 34 % (32-34) 11/14/16 04:45 RDW 13.3 % (13.2-15.2) 11/14/16 04:45 Plt Count 203 K/mm3 (140-440) 11/14/16 04:45 Lymph % (Auto) 11.5 % (13.4-35.0) L 11/13/16 03:28 [place] % (Auto) 5.7 % (0.0-7.3) 11/13/16 03:28 Eos % (Auto) 0.4 % (0.0-4.3) 11/13/16 03:28 Baso % (Auto) 0.5 % (0.0-1.8) 11/13/16 03:28 Lymph # 1.3 K/mm3 (1.2-5.4) 11/13/16 03:28 [place] # 0.7 K/mm3 (0.0-0.8) 11/13/16 03:28 Eos # 0.0 K/mm3 (0.0-0.4) 11/13/16 03:28 Baso # 0.1 K/mm3 (0.0-0.1) 11/13/16 03:28 Seg Neutrophils % 81.9 % (40.0-70.0) H 11/13/16 03:28 Seg Neutrophils # 9.5 K/mm3 (1.8-7.7) H 11/13/16 03:28 POC ABG pH 7.416 (7.35-7.45) 11/12/16 06:17 POC ABG pCO2 41.1 (35-45) 11/12/16 06:17 POC ABG pO2 168 (80-105) H 11/12/16 06:17 POC ABG HCO3 26.4 11/12/16 06:17 POC ABG Total CO2 11/12/16 06:17 POC ABG O2 Sat 100 11/12/16 06:17 POC ABG Base Excess 2 11/12/16 06:17 FiO2 40 % 11/12/16 06:17 Sodium 141 mmol/L (137-145) 11/14/16 04:45 Potassium 3.8 mmol/L (3.6-5.0) 11/14/16 04:45 Chloride 104.7 mmol/L (98-107) 11/14/16 04:45 Carbon Dioxide 20 mmol/L (22-30) L 11/14/16 04:45 Anion Gap 20 mmol/L 11/14/16 04:45 BUN 7 mg/dL (9-20) L 11/14/16 04:45 Creatinine 0.7 mg/dL (0.8-1.5) L 11/14/16 04:45 Estimated GFR > 60 ml/min 11/14/16 04:45 BUN/Creatinine Ratio 10.00 % 11/14/16 04:45 Glucose 78 mg/dL (75-100) 11/14/16 04:45 POC Glucose 75 (70-105) 11/13/16 23:22 Calcium 9.3 mg/dL (8.4-10.2) 11/14/16 04:45 Total Bilirubin 0.3 mg/dL (0.1-1.2) 11/11/16 15:55 AST 34 units/L (5-40) 11/11/16 15:55 ALT 17 units/L (7-56) 11/11/16 15:55 Alkaline Phosphatase 68 units/L (35-129) 11/11/16 15:55 Total Protein 7.5 g/dL (6.3-8.2) 11/11/16 15:55 Albumin 4.4 g/dL (3.9-5) 11/11/16 15:55 Albumin/Globulin Ratio 1.4 % 11/11/16 15:55 TSH 1.360 mlU/mL (0.270-4.200) 11/11/16 15:55 Urine Color Yellow (Yellow) 11/11/16 16:13 Urine Turbidity Clear (Clear) 11/11/16 16:13 Urine pH 6.0 (5.0-7.0) 11/11/16 16:13 Ur Specific [place] 1.023 (1.003-1.030) 11/11/16 16:13 Urine Protein 30 mg/dl mg/dL (Negative) 11/11/16 16:13 Urine Glucose (UA) Neg mg/dL (Negative) 11/11/16 16:13 Urine Ketones Neg mg/dL (Negative) 11/11/16 16:13 Urine Blood Neg (Negative) 11/11/16 16:13 Urine Nitrite Neg (Negative) 11/11/16 16:13 Urine Bilirubin Neg (Negative) 11/11/16 16:13 Urine Urobilinogen < 2.0 mg/dL (<2.0) 11/11/16 16:13 Ur Leukocyte Esterase Neg (Negative) 11/11/16 16:13 Urine WBC (Auto) 1.0 /HPF (0.0-6.0) 11/11/16 16:13 Urine RBC (Auto) 1.0 /HPF (0.0-6.0) 11/11/16 16:13 Urine Mucus Few /HPF 11/11/16 16:13 Salicylates < 0.3 mg/dL (2.8-20.0) L 11/11/16 15:55 Urine Opiates Screen Presumptive negative 11/11/16 16:13 Urine Methadone Screen Presumptive positive 11/11/16 16:13 Acetaminophen < 15.0 ug/mL (10.0-30.0) 11/11/16 16:20 Ur Barbiturates Screen Presumptive positive 11/11/16 16:13 Ur Phencyclidine Scrn Presumptive negative 11/11/16 16:13 Ur Amphetamines Screen Presumptive negative 11/11/16 16:13 U Benzodiazepines Scrn Presumptive positive 11/11/16 16:13 Urine Cocaine Screen Presumptive negative 11/11/16 16:13 U Marijuana (THC) Screen Presumptive negative 11/11/16 16:13 Drugs of Abuse Note Disclamer 11/11/16 16:13 Plasma/Serum Alcohol < 0.01 gm% (0-0.07) 11/11/16 15:55
--- NOTE | 2016-11-14 15:06 | Progress Note ---
Subjective - Reason for Consult Consult date: 11/14/16 Reason for consult: acute intoxication and chronic substance abuse Mental Status Exam - Vital signs Last Vital Signs Temp 98.2 F 11/14/16 09:15 Pulse 124 H 11/14/16 10:27 Resp 22 11/14/16 09:15 BP 130/80 11/14/16 10:27 Pulse Ox 97 11/14/16 09:20 Assessment and Plan Upon clinical examination and review of medical records, the patient's story is fairly variable. Patient is unable to very clearly identified with substances and when he was using them. At the current time, patient is fairly irritable and requesting more medications to help him have a smoother transition as he is withdrawing from both benzodiazepines as well as opiates. Per my discussion, patient notes the following timeline: Admission to residential treatment center for substance abuse on October 05 with the initiation of a Librium detox for 11 days until October 15. Subsequently, patient was free of benzodiazepine use but still taking Suboxone. On October 26, patient surreptitiously took Xanax bars from a patient who was small going them into the rehabilitation center. He reports taking 4 2mg Xanax bars from October 26 to November 09. On November 09 he was discharged from substance abuse rehabilitation. From November 09 to November 11, patient reports an average daily use of about 30 mg of Xanax. During my discussion with him his stories about the daily use of Xanax, the onset of Xanax use while he was in the rehabilitation program and his co-morbid opiate, as well as his alcohol use, varied. Furthermore, it is unclear the extent of his withdrawal syndrome as his CIWA score continues to be fairly low. General Appearance: casually dressed, in distress, restless Sensorium/Consciousness: alert and responding to external stimuli; clear Orientation: person, place, time and situation Eye Contact: limited Attitude / Behavior: guarded, not well related Psychomotor & Musculoskeletal Activity: WNL Mood: " I'm withdrawing" Affect: constricted, limited range, irritable Speech / Language: fluent, with normal rate/rhythm/tone Thought Processes: organized, logical, linear Thought Content: no SI, no HI Perception: no AVH Insight: limited Judgement: limitied Capacity for ADLs: independent Plan: 1. Symptomatic management for opioid withdrawal 2. Continue CIWA and clonazepam as currently scheduled as he is noting several seziures daily (I've also asked the mother to video record the seizures so I can review the video tomorrow). Additionally, staff should also observe and document the observations when he is reporting that he is having a seizure. 3. Place on and first transfer to inpatient psychiatric facility or a residential rehab center if they will accept him form the med/surgical floor directly
[2016-11-14] MEDS: HABITROL TD SCH (18:06)
[2016-11-15] MEDS: ATIVAN IV PRN ×4 (00:12→22:32)
[2016-11-15] MEDS: SYNTHROID PO SCH (05:32)
[2016-11-15] MEDS: NEURONTIN PO SCH ×3 (05:32→21:10)
[2016-11-15] MEDS: ZOFRAN IV PRN (05:32)
--- NOTE | 2016-11-15 10:11 | Progress Note ---
Assessment and Plan Assessment and plan: Patient is a 26-year-old man with history of hypothyroidism, htn and major depression disorder with prior suicidal attempt who presented with another suicidal attempt with drug overdose leading to acute hypoxic respiratory failure on arrival. Patient has been extubated. -Acute hypoxic respiratory failure status post intubation and extubation, doing well discussed with critical care may be transferred to the floor -Drug overdose and suicidal attempt: Continue 1013 and mental health follow-up -Acute encephalopathy due to above, resolved -DVT prophylaxis: scd and sq lovenox -Disposition: Okay to transfer out of ICU per critical care medicine specialist ; placement to inpatient psychiatry facility pending New issues seizure-like activity likely due to alcohol or opiods withdrawals, current CIWA, sitter at bedside watching for safety, added telemetry monitoring D/w mother at bedside many times yesterday, who I believe is as anxious as patient. She is disparaging the care her son is getting at this hospital. I visited Mr. Brock's room three times yesterday and spoke with the mother each time. I spoke with her over the phone today and she requests that he be sent to [facility] or [facility] facility for withdrawals. She doesn't like our [facility] mental health services. I will try to honor her request, consulted case management. Restart his home suboxone Video monitoring for seizures would be beneficial but not available here and Neurology consultation services are not available until tomorrow/Wednesday. Ordered EEG History Interval history: Patient seen and examined, follow up for drug overdose and suicidal attempt. pt denies suicidal thoughts. No cp/sob/n/v reported. He reports having seizures but I have never witnessed patient having a seizure. He says, "I'm bout to have a seizure." So, I wait and he says look at my leg shaking. I told him that doesn 't appear to be a seizure. Hospitalist Physical - Physical exam Narrative exam: GEN: WDWN, NAD, AWAKE, ALERT, ORIENTATED 3 CVS: Regular tachycardic, NORMAL S1S2 LUNGS/CHEST: CTA B, NORMAL CHEST EXPANSION B, GOOD AIR ENTRY B ABD: SOFT NTND, GBS, NO REBOUND OR GUARDING EXT/SKIN: NO SIGNIFICANT EDEMA, CUTS ON ARMS MSK: FROM X 4 EXTREMITIES NEURO: CN 2-12 GROSSLY INTACT, intention tremors, no pronator drift, no isolated weakness PSY: CALM - Constitutional Vitals: Temp Pulse Resp BP Pulse Ox 97.8 F 85 18 107/58 98 11/15/16 07:50 11/15/16 07:50 11/15/16 07:50 11/15/16 07:50 11/15/16 07:50 General appearance: Present: no acute distress Results - Labs CBC & Chem 7: 11/14/16 04:45 11/14/16 04:45 Labs: Laboratory Last Values WBC 10.2 K/mm3 (4.5-11.0) 11/14/16 04:45 RBC 5.22 M/mm3 (3.65-5.03) H 11/14/16 04:45 Hgb 15.9 gm/dl (11.8-15.2) H 11/14/16 04:45 Hct 47.1 % (35.5-45.6) H 11/14/16 04:45 MCV 90 fl (84-94) 11/14/16 04:45 MCH 31 pg (28-32) 11/14/16 04:45 MCHC 34 % (32-34) 11/14/16 04:45 RDW 13.3 % (13.2-15.2) 11/14/16 04:45 Plt Count 203 K/mm3 (140-440) 11/14/16 04:45 Lymph % (Auto) 11.5 % (13.4-35.0) L 11/13/16 03:28 [place] % (Auto) 5.7 % (0.0-7.3) 11/13/16 03:28 Eos % (Auto) 0.4 % (0.0-4.3) 11/13/16 03:28 Baso % (Auto) 0.5 % (0.0-1.8) 11/13/16 03:28 Lymph # 1.3 K/mm3 (1.2-5.4) 11/13/16 03:28 [place] # 0.7 K/mm3 (0.0-0.8) 11/13/16 03:28 Eos # 0.0 K/mm3 (0.0-0.4) 11/13/16 03:28 Baso # 0.1 K/mm3 (0.0-0.1) 11/13/16 03:28 Seg Neutrophils % 81.9 % (40.0-70.0) H 11/13/16 03:28 Seg Neutrophils # 9.5 K/mm3 (1.8-7.7) H 11/13/16 03:28 POC ABG pH 7.416 (7.35-7.45) 11/12/16 06:17 POC ABG pCO2 41.1 (35-45) 11/12/16 06:17 POC ABG pO2 168 (80-105) H 11/12/16 06:17 POC ABG HCO3 26.4 11/12/16 06:17 POC ABG Total CO2 28 11/12/16 06:17 POC ABG O2 Sat 100 11/12/16 06:17 POC ABG Base Excess 2 11/12/16 06:17 FiO2 40 % 11/12/16 06:17 Sodium 141 mmol/L (137-145) 11/14/16 04:45 Potassium 3.8 mmol/L (3.6-5.0) 11/14/16 04:45 Chloride 104.7 mmol/L (98-107) 11/14/16 04:45 Carbon Dioxide 20 mmol/L (22-30) L 11/14/16 04:45 Anion Gap 20 mmol/L 11/14/16 04:45 BUN 7 mg/dL (9-20) L 11/14/16 04:45 Creatinine 0.7 mg/dL (0.8-1.5) L 11/14/16 04:45 Estimated GFR > 60 ml/min 11/14/16 04:45 BUN/Creatinine Ratio 10.00 % 11/14/16 04:45 Glucose 78 mg/dL (75-100) 11/14/16 04:45 POC Glucose 75 (70-105) 11/13/16 23:22 Calcium 9.3 mg/dL (8.4-10.2) 11/14/16 04:45 Total Bilirubin 0.3 mg/dL (0.1-1.2) 11/11/16 15:55 AST 34 units/L (5-40) 11/11/16 15:55 ALT 17 units/L (7-56) 11/11/16 15:55 Alkaline Phosphatase 68 units/L (35-129) 11/11/16 15:55 Total Protein 7.5 g/dL (6.3-8.2) 11/11/16 15:55 Albumin 4.4 g/dL (3.9-5) 11/11/16 15:55 Albumin/Globulin Ratio 1.4 % 11/11/16 15:55 TSH 1.360 mlU/mL (0.270-4.200) 11/11/16 15:55 Urine Color Yellow (Yellow) 11/11/16 16:13 Urine Turbidity Clear (Clear) 11/11/16 16:13 Urine pH 6.0 (5.0-7.0) 11/11/16 16:13 Ur Specific [place] 1.023 (1.003-1.030) 11/11/16 16:13 Urine Protein 30 mg/dl mg/dL (Negative) 11/11/16 16:13 Urine Glucose (UA) Neg mg/dL (Negative) 11/11/16 16:13 Urine Ketones Neg mg/dL (Negative) 11/11/16 16:13 Urine Blood Neg (Negative) 11/11/16 16:13 Urine Nitrite Neg (Negative) 11/11/16 16:13 Urine Bilirubin Neg (Negative) 11/11/16 16:13 Urine Urobilinogen < 2.0 mg/dL (<2.0) 11/11/16 16:13 Ur Leukocyte Esterase Neg (Negative) 11/11/16 16:13 Urine WBC (Auto) 1.0 /HPF (0.0-6.0) 11/11/16 16:13 Urine RBC (Auto) 1.0 /HPF (0.0-6.0) 11/11/16 16:13 Urine Mucus Few /HPF 11/11/16 16:13 Salicylates < 0.3 mg/dL (2.8-20.0) L 11/11/16 15:55 Urine Opiates Screen Presumptive negative 11/11/16 16:13 Urine Methadone Screen Presumptive positive 11/11/16 16:13 Acetaminophen < 15.0 ug/mL (10.0-30.0) 11/11/16 16:20 Ur Barbiturates Screen Presumptive positive 11/11/16 16:13 Ur Phencyclidine Scrn Presumptive negative 11/11/16 16:13 Ur Amphetamines Screen Presumptive negative 11/11/16 16:13 U Benzodiazepines Scrn Presumptive positive 11/11/16 16:13 Urine Cocaine Screen Presumptive negative 11/11/16 16:13 U Marijuana (THC) Screen Presumptive negative 11/11/16 16:13 Drugs of Abuse Note Disclamer 11/11/16 16:13 Plasma/Serum Alcohol < 0.01 gm% (0-0.07) 11/11/16 15:55
[2016-11-15] MEDS: CATAPRES PO SCH ×2 (10:57→21:11)
[2016-11-15] MEDS: EFFEXOR XR PO SCH (10:58)
[2016-11-15] MEDS: LOVENOX SUB-Q SCH (10:58)
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
[2016-11-15] MEDS ORDERED: SUBOXONE SL SCH (14:00)
[2016-11-15] MEDS: SUBOXONE 2 MG-0.5 MG SL SCH ×2 (14:28→21:10)
[2016-11-15] MEDS: LIBRIUM PO SCH ×2 (15:17→21:10)
[2016-11-15] MEDS: HABITROL TD SCH (18:52)
[2016-11-16] MEDS: NEURONTIN PO SCH (06:13)
[2016-11-16] MEDS: SYNTHROID PO SCH (06:13)
[2016-11-16] MEDS ORDERED: NACL 0.9% 500 ML 500 ML ONE (06:15)
[2016-11-16] MEDS ORDERED: NACL 0.9% 1000 ML 1,000 ML IV ONE (06:18)
[2016-11-16] MEDS ORDERED: ROMAZICON IV ONE ×3 (06:28→09:00)
[2016-11-16] MEDS ORDERED: NARCAN 0.4 MG/1 ML ONE (06:59)
--- NOTE | 2016-11-16 07:02 | Event Note ---
Date: 11/16/16 Was asked to evaluate patient for decreased responsiveness. Patient deeply sedated and snoring. Romazicon 1mg ivp given b/c of Ativan dose given for his psych problems ABG shows Co2 of 130 Did not respond to Romazicon. patient in Acute resp failure with Hypercapnia Dr Ramos informed at 7AM.
[2016-11-16 07:28] LABS: ISTAT PCO2 > 130.0 (35-45); ISTAT PH 6.956 (7.35-7.45); ISTAT PO2 99 (80-105)
--- NOTE | 2016-11-16 07:33 | Progress Note ---
Assessment and Plan Assessment and plan: Patient is a 26-year-old man with history of hypothyroidism, htn, polysubstance abuse, etoh dependency, MDD with prior suicidal attempt, chronic opioid and benzo dependency who presented after being found down and unresponsive. ? Sudicidal attempt. He was placed on 1013. We are not sure why he became unresponsive or what medications he took. His urine drug screen was positive for methodone, barbiturates and benzodiazepines. He has been on Suboxone for years. He was intubated for airway protection and admitted to [facility] ICU. He was extubated on 11/12/16. He was transferred to the 3rd floor on 11/13/16. He had a seizure on 11/14/16, at that time, mother was insisting that we sedate him more; also requested to transfer to ICU which was declined by [facility]. On 11/15/16 , d/w mother again and she was upset that he wasn't sedated enough and requested he be sent to [facility] or [facility] facility for withdrawals. She doesn't like our [facility] health services. I will try to honor her request, consulted case management. Restarted his home Suboxone, which he has been on for years. Also, added Librium. Then 11/16/16 overnight CODE MET called due to over-sedation, pulse ox droppped to 80%, pCO2 was verbally reported to me as [address] Elizondo, nocturnal hospitalist. He was given Flumazenil 0.5mg x1 which did not help and was repeated again, 0.5 mg x1. I went to evaluate Mr. Brock prior to 7am and he had woke up (a/o x 3) asking for his Suboxone. I transferred him to the ICU. -Acute hypoxic and hypercapneic respiratory failure status post intubation and extubation: now back on O2 -Drug overdose and suicidal attempt: Continue 1013 and mental health follow-up -Acute encephalopathy due to above, resolved -DVT prophylaxis: scd and sq lovenox -Seizure-like activity likely due to alcohol or opioids withdrawals, current CIWA, sitter at bedside watching for safety, added telemetry monitoring, ordered EEG -DVT prophylaxis: sq Lovenox -Disposition: transfer back to ICU due respiratory failure and depression I called his mother at [phone] and spoke with her. Update given. CCT 32 minutes. History Interval history: Patient seen and examined, follow up for drug overdose and suicidal attempt. Overnight was eventful for decreased LOC. His pulse ox was 80% and ABG were done and pCO2 were verbally reported to me to be 130. Hospitalist Physical - Physical exam Narrative exam: GEN: WDWN, NAD, AWAKE, ALERT, ORIENTATED 3 CVS: Regular tachycardic, NORMAL S1S2 LUNGS/CHEST: CTA B, NORMAL CHEST EXPANSION B, GOOD AIR ENTRY B ABD: SOFT NTND, GBS, NO REBOUND OR GUARDING EXT/SKIN: NO SIGNIFICANT EDEMA, CUTS ON ARMS MSK: FROM X 4 EXTREMITIES NEURO: CN 2-12 GROSSLY INTACT, intention tremors, no pronator drift, no isolated weakness PSY: CALM - Constitutional Vitals: Temp Pulse Resp BP Pulse Ox 98.2 F 123 H 18 176/95 97 11/16/16 03:33 11/16/16 05:00 11/16/16 05:00 11/16/16 03:33 11/16/16 05:00 General appearance: Present: no acute distress Results - Labs CBC & Chem 7: 11/14/16 04:45 11/14/16 04:45 Labs: Laboratory Last Values WBC 10.2 K/mm3 (4.5-11.0) 11/14/16 04:45 RBC 5.22 M/mm3 (3.65-5.03) H 11/14/16 04:45 Hgb 15.9 gm/dl (11.8-15.2) H 11/14/16 04:45 Hct 47.1 % (35.5-45.6) H 11/14/16 04:45 MCV 90 fl (84-94) 11/14/16 04:45 MCH 31 pg (28-32) 11/14/16 04:45 MCHC 34 % (32-34) 11/14/16 04:45 RDW 13.3 % (13.2-15.2) 11/14/16 04:45 Plt Count 203 K/mm3 (140-440) 11/14/16 04:45 Lymph % (Auto) 11.5 % (13.4-35.0) L 11/13/16 03:28 [place] % (Auto) 5.7 % (0.0-7.3) 11/13/16 03:28 Eos % (Auto) 0.4 % (0.0-4.3) 11/13/16 03:28 Baso % (Auto) 0.5 % (0.0-1.8) 11/13/16 03:28 Lymph # 1.3 K/mm3 (1.2-5.4) 11/13/16 03:28 [place] # 0.7 K/mm3 (0.0-0.8) 11/13/16 03:28 Eos # 0.0 K/mm3 (0.0-0.4) 11/13/16 03:28 Baso # 0.1 K/mm3 (0.0-0.1) 11/13/16 03:28 Seg Neutrophils % 81.9 % (40.0-70.0) H 11/13/16 03:28 Seg Neutrophils # 9.5 K/mm3 (1.8-7.7) H 11/13/16 03:28 POC ABG pH 7.416 (7.35-7.45) 11/12/16 06:17 POC ABG pCO2 41.1 (35-45) 11/12/16 06:17 POC ABG pO2 168 (80-105) H 11/12/16 06:17 POC ABG HCO3 26.4 11/12/16 06:17 POC ABG Total CO2 28 11/12/16 06:17 POC ABG O2 Sat 100 11/12/16 06:17 POC ABG Base Excess 2 11/12/16 06:17 FiO2 40 % 11/12/16 06:17 Sodium 141 mmol/L (137-145) 11/14/16 04:45 Potassium 3.8 mmol/L (3.6-5.0) 11/14/16 04:45 Chloride 104.7 mmol/L (98-107) 11/14/16 04:45 Carbon Dioxide 20 mmol/L (22-30) L 11/14/16 04:45 Anion Gap 20 mmol/L 11/14/16 04:45 BUN 7 mg/dL (9-20) L 11/14/16 04:45 Creatinine 0.7 mg/dL (0.8-1.5) L 11/14/16 04:45 Estimated GFR > 60 ml/min 11/14/16 04:45 BUN/Creatinine Ratio 10.00 % 11/14/16 04:45 Glucose 78 mg/dL (75-100) 11/14/16 04:45 POC Glucose 271 (70-105) H 11/16/16 06:01 Calcium 9.3 mg/dL (8.4-10.2) 11/14/16 04:45 Total Bilirubin 0.3 mg/dL (0.1-1.2) 11/11/16 15:55 AST 34 units/L (5-40) 11/11/16 15:55 ALT 17 units/L (7-56) 11/11/16 15:55 Alkaline Phosphatase 68 units/L (35-129) 11/11/16 15:55 Total Protein 7.5 g/dL (6.3-8.2) 11/11/16 15:55 Albumin 4.4 g/dL (3.9-5) 11/11/16 15:55 Albumin/Globulin Ratio 1.4 % 11/11/16 15:55 TSH 1.360 mlU/mL (0.270-4.200) 11/11/16 15:55 Urine Color Yellow (Yellow) 11/11/16 16:13 Urine Turbidity Clear (Clear) 11/11/16 16:13 Urine pH 6.0 (5.0-7.0) 11/11/16 16:13 Ur Specific [place] 1.023 (1.003-1.030) 11/11/16 16:13 Urine Protein 30 mg/dl mg/dL (Negative) 11/11/16 16:13 Urine Glucose (UA) Neg mg/dL (Negative) 11/11/16 16:13 Urine Ketones Neg mg/dL (Negative) 11/11/16 16:13 Urine Blood Neg (Negative) 11/11/16 16:13 Urine Nitrite Neg (Negative) 11/11/16 16:13 Urine Bilirubin Neg (Negative) 11/11/16 16:13 Urine Urobilinogen < 2.0 mg/dL (<2.0) 11/11/16 16:13 Ur Leukocyte Esterase Neg (Negative) 11/11/16 16:13 Urine WBC (Auto) 1.0 /HPF (0.0-6.0) 11/11/16 16:13 Urine RBC (Auto) 1.0 /HPF (0.0-6.0) 11/11/16 16:13 Urine Mucus Few /HPF 11/11/16 16:13 Salicylates < 0.3 mg/dL (2.8-20.0) L 11/11/16 15:55 Urine Opiates Screen Presumptive negative 11/11/16 16:13 Urine Methadone Screen Presumptive positive 11/11/16 16:13 Acetaminophen < 15.0 ug/mL (10.0-30.0) 11/11/16 16:20 Ur Barbiturates Screen Presumptive positive 11/11/16 16:13 Ur Phencyclidine Scrn Presumptive negative 11/11/16 16:13 Ur Amphetamines Screen Presumptive negative 11/11/16 16:13 U Benzodiazepines Scrn Presumptive positive 11/11/16 16:13 Urine Cocaine Screen Presumptive negative 11/11/16 16:13 U Marijuana (THC) Screen Presumptive negative 11/11/16 16:13 Drugs of Abuse Note Disclamer 11/11/16 16:13 Plasma/Serum Alcohol < 0.01 gm% (0-0.07) 11/11/16 15:55
[2016-11-16] MEDS ORDERED: NARCAN 0.4 MG/1 ML IV ONE (08:00)
[2016-11-16 08:58] LABS: Hematocrit 48.2 % (35.5-45.6); Hemoglobin 15.7 gm/dl (11.8-15.2); Mean Corpuscular HGB Conc 33 % (32-34); Mean Corpuscular Hemoglobin 30 pg (28-32); Mean Corpuscular Volume 92 fl (84-94); Platelet Count 259 K/mm3 (140-440); Red Blood Count 5.24 M/mm3 (3.65-5.03); Red Cell Distribution Width 13.1 % (13.2-15.2)
[2016-11-16 09:20] LABS: Alanine Aminotransferase 12 units/L (7-56); Albumin 4.4 g/dL (3.9-5); Albumin/Globulin Ratio 1.4 %; Alkaline Phosphatase 89 units/L (35-129); BUN/Creatinine Ratio 8.57; Blood Urea Nitrogen 6 mg/dL (9-20); Calcium 8.8 mg/dL (8.4-10.2); Carbon Dioxide 28 mmol/L (22-30); Chloride 103.6 mmol/L (98-107); Glucose 130 mg/dL (75-100); Potassium 4.4 mmol/L (3.6-5.0); Sodium 143 mmol/L (137-145); Total Protein 7.6 g/dL (6.3-8.2)
[2016-11-16 09:25] LABS: Anion Gap 16 mmol/L
[2016-11-16 10:15] LABS: ISTAT Base Excess 1; ISTAT HCO3 31.6; ISTAT PCO2 109.9 (35-45); ISTAT PH 7.067 (7.35-7.45); ISTAT PO2 74 (80-105); ISTAT SO2 85; ISTAT TCO2 35
--- NOTE | 2016-11-16 10:20 | Consultation ---
History of Present Illness Consult date: 11/16/16 Requesting physician: TAHMINA DE LA TORRE Reason for consult: other (hypercapnic respiratory failure) History of present illness: REconsulted as patient was obtunded. ABG done and ph was 7 and PCO2 was greater than 100. Patient will respond to sternal rub and talk to you for several seconds before nodding off again. No family at bedside. Was given remazicon twice. No narcan. Has had some nausea and emesis but awake enough to protect airway. Past History Past Medical History: hypothyroidism, seizures (benzo withdrawal seizure), other (now off the ventilator) Past Surgical History: No surgical history, Other (reviewed) Social history: alcohol abuse, prescription drug abuse, IV drug use Family history: no significant family history, other (reviewed) Medications and Allergies Allergies Allergy/AdvReac Type Severity Reaction Status Date / Time No Known Allergies Allergy Verified 04/25/16 10:15 Home Medications Medication Instructions Recorded Confirmed Last Taken Type Gabapentin [Neurontin] 600 mg PO Q8H 11/11/16 11/11/16 Unknown History Levothyroxine [Synthroid] 100 mcg PO QAM 11/11/16 11/11/16 Unknown History Quetiapine Fumarate [SEROquel XR] 200 mg PO DAILY 11/11/16 11/11/16 Unknown History Venlafaxine HCl [Venlafaxin ER] 150 mg PO QDAY 11/11/16 11/11/16 Unknown History cloNIDine [Catapres] 0.1 mg PO BID 11/11/16 11/11/16 Unknown History Suboxone 8 mg-2 mg SL Film 8 mg SL TID MDD maintenance 11/14/16 11/14/16 History Active Meds: Active Medications Buprenorphine HCl (Suboxone 2 Mg-0.5 Mg) 4 each SL TID [facility] Last Admin: 11/15/16 21:10 Dose: 4 each Clonazepam (Klonopin) 1 mg PO TID [facility] Last Admin: 11/15/16 21:09 Dose: 1 mg Clonidine HCl (Catapres) 0.1 mg PO BID [facility] Last Admin: 11/15/16 21:11 Dose: 0.1 mg Enoxaparin Sodium (Lovenox) 40 mg SUB-Q QDAY@1000 [facility] Last Admin: 11/15/16 10:58 Dose: 40 mg Gabapentin (Neurontin) 600 mg PO Q8HR [facility] Last Admin: 11/16/16 06:13 Dose: Not Given Hydrophilic Ointment (Vaseline Lip Therapy) 1 applic TP Q2HR PRN PRN Reason: Dry Lips Levothyroxine Sodium (Synthroid) 100 mcg PO DAILY@0600 [facility] Last Admin: 11/16/16 06:13 Dose: Not Given Lorazepam (Ativan) 2 mg IV Q1H PRN PRN Reason: CIWA-Ar 8-15 Last Admin: 11/15/16 22:32 Dose: 2 mg Lorazepam (Ativan) 4 mg IV Q1H PRN PRN Reason: CIWA-Ar 16-25 Last Admin: 11/14/16 20:57 Dose: 4 mg Nicotine (Habitrol) 21 mg TD Q24H [facility] Last Admin: 11/15/16 18:52 Dose: 21 mg Ondansetron HCl (Zofran) 4 mg IV Q6H PRN PRN Reason: Nausea And Vomiting Last Admin: 11/15/16 05:32 Dose: 4 mg Quetiapine Fumarate (Seroquel) 100 mg PO BID [facility] Last Admin: 11/15/16 21:09 Dose: 100 mg Venlafaxine HCl (Effexor Xr) 150 mg PO QDAY [facility] Last Admin: 11/15/16 10:58 Dose: 150 mg Review of Systems ROS unobtainable: due to mental status Physical Examination Vital signs: Vital Signs Temp Pulse Resp BP Pulse Ox 97.1 F L 96 H 18 105/62 98 11/11/16 15:46 11/11/16 15:46 11/11/16 15:46 11/11/16 15:46 11/11/16 15:46 General appearance: no acute distress, lethargic Eyes: non-icteric ENT: oropharynx moist Neck: supple Effort: normal Ascultation: Bilateral: clear Percussion: Bilateral: not dull Cardiovascular: regular rate and rhythm Gastrointestinal: normoactive bowel sounds Integumentary: normal Extremities: no cyanosis, no edema Musculoskeletal: no deformities unable to assess Results - Laboratory Findings CBC and BMP: 11/16/16 08:25 11/16/16 08:25 ABG POC ABG pH 7.067 (7.35-7.45) L 11/16/16 08:58 POC ABG pCO2 109.9 (35-45) H 11/16/16 08:58 POC ABG pO2 74 (80-105) L 11/16/16 08:58 POC ABG HCO3 31.6 11/16/16 08:58 POC ABG Total CO2 35 11/16/16 08:58 POC ABG O2 Sat 85 11/16/16 08:58 Abnormal lab findings: Abnormal Labs 11/12/16 11/13/16 11/13/16 06:17 03:28 03:28 WBC 11.6 H RBC 5.07 H Hgb 15.3 H Hct RDW Lymph % (Auto) 11.5 L Seg Neutrophils % 81.9 H Seg Neutrophils # 9.5 H POC ABG pH POC ABG pCO2 POC ABG pO2 168 H Carbon Dioxide 21 L BUN 8 L Creatinine 0.6 L Glucose 73 L POC Glucose 11/14/16 11/14/16 11/16/16 04:45 04:45 06:01 WBC RBC 5.22 H Hgb 15.9 H Hct 47.1 H RDW Lymph % (Auto) Seg Neutrophils % Seg Neutrophils # POC ABG pH POC ABG pCO2 POC ABG pO2 Carbon Dioxide 20 L BUN 7 L Creatinine 0.7 L Glucose POC Glucose 271 H 11/16/16 11/16/16 11/16/16 06:46 08:25 08:25 WBC 25.0 H RBC 5.24 H Hgb 15.7 H Hct 48.2 H RDW 13.1 L Lymph % (Auto) Seg Neutrophils % Seg Neutrophils # POC ABG pH 6.956 L POC ABG pCO2 > 130.0 H POC ABG pO2 Carbon Dioxide BUN 6 L Creatinine 0.7 L Glucose 130 H POC Glucose 11/16/16 08:58 WBC RBC Hgb Hct RDW Lymph % (Auto) Seg Neutrophils % Seg Neutrophils # POC ABG pH 7.067 L POC ABG pCO2 109.9 H POC ABG pO2 74 L Carbon Dioxide BUN Creatinine Glucose POC Glucose Assessment and Plan 26 y/o male with acute respiratory failure secondary to overdose, possible suicide attempt, now back in ICU secondary to oversedation on floor. 1. Attempt bipap trial 2. Repeat gas in 1 hour 3. Zofran for nausea 4. Discuss with psych, need to revamp regimen.
[2016-11-16] MEDS: ZOFRAN IV PRN (10:21)
[2016-11-16] MEDS: LOVENOX SUB-Q SCH (10:23)
--- NOTE | 2016-11-16 12:32 | Consultation ---
History of Present Illness Consult date: 11/16/16 Requesting physician: TAHMINA DE LA TORRE Reason for Consult: ? seizure Chief complaint: BipAp causing discomfort History of present illness: 26 YO M Hx hypothyroidism, htn, polysubstance abuse, Etoh dependency, MDD with prior suicidal attempt, chronic opioid and benzo dependency who presented after being found down and unresponsive. ? Sudicidal attempt. He was placed on 1013. We are not sure why he became unresponsive or what medications he took. His urine drug screen was positive for methodone, barbiturates and benzodiazepines. He has been on Suboxone for years. He was intubated for airway protection and admitted to ICU. He was extubated on 11/12/16. He reportedly had a seizure on which is typical for him when abrupt ceasing BZDs. He reports 10 prior seizure all in setting of Xanax withdrawal. We did not resume his home Xanax/ Suboxone initially but he was then started on Librium. Then 11/16/16 overnight CODE MET called due to over-sedation, pulse ox droppped to 80%, pCO2 was verbally reported as [address] Elizondo, nocturnal hospitalist. He was given Flumazenil 0.5mg x1 which did not help and was repeated again, 0.5 mg x1. Pt denies personal hx of head trauma, meningitis or encephalitis. Similarly pt does not have a FHx of seizure d/o. Past History Past Medical History: hypothyroidism, seizures (benzo withdrawal seizure) Past Surgical History: No surgical history, Other (reviewed) Social history: alcohol abuse, prescription drug abuse, IV drug use Family history: no significant family history, other (reviewed) Medications and Allergies Allergies Allergy/AdvReac Type Severity Reaction Status Date / Time No Known Allergies Allergy Verified 04/25/16 10:15 Home Medications Medication Instructions Recorded Confirmed Last Taken Type Gabapentin [Neurontin] 600 mg PO Q8H 11/11/16 11/11/16 Unknown History Levothyroxine [Synthroid] 100 mcg PO QAM 11/11/16 11/11/16 Unknown History Quetiapine Fumarate [SEROquel XR] 200 mg PO DAILY 11/11/16 11/11/16 Unknown History Venlafaxine HCl [Venlafaxin ER] 150 mg PO QDAY 11/11/16 11/11/16 Unknown History cloNIDine [Catapres] 0.1 mg PO BID 11/11/16 11/11/16 Unknown History Suboxone 8 mg-2 mg SL Film 8 mg SL TID MDD maintenance 11/14/16 11/14/16 History Active Meds: Active Medications Enoxaparin Sodium (Lovenox) 40 mg SUB-Q QDAY@1000 [facility] Last Admin: 11/16/16 10:23 Dose: 40 mg Hydrophilic Ointment (Vaseline Lip Therapy) 1 applic TP Q2HR PRN PRN Reason: Dry Lips Levothyroxine Sodium (Synthroid) 100 mcg PO DAILY@0600 [facility] Last Admin: 11/16/16 06:13 Dose: Not Given Nicotine (Habitrol) 21 mg TD Q24H [facility] Last Admin: 11/15/16 18:52 Dose: 21 mg Ondansetron HCl (Zofran) 4 mg IV Q6H PRN PRN Reason: Nausea And Vomiting Last Admin: 11/16/16 10:21 Dose: 4 mg Review of Systems All systems: negative Constitutional: fatigue, weakness, malaise, lethargy Neurological: seizures Psychiatric: anxiety, sleep disturbances, suicidal ideation, anxiety attacks, difficulties concentrating, confusion, irritability, mood swings Physical Examination - Vital Signs Vital Signs: Vital Signs Temp Pulse Resp BP Pulse Ox 97.1 F L 96 H 18 105/62 98 11/11/16 15:46 11/11/16 15:46 11/11/16 15:46 11/11/16 15:46 11/11/16 15:46 - Constitutional General appearance: uncomfortable, acutely ill - EENT EENT: Present: ATNC, PERRL, mucous membranes dry, hearing intact, vision intact - Respiratory Respiratory: Present: chest non-tender, normal breath sounds, no respiratory distress - Cardiovascular Cardiovascular: Present: regular rate Extremities: Present: no peripheral edema bilatateraly, no clubbing, cyanosis, no inflammation, no ischemia or petechiae - Gastrointestinal Gastrointestinal: Present: normoactive bowel sounds, soft, non-distended - Integumentary Integumentary: Present: normal - Neurologic Cranial nerve examination: PERRL, EOMI, VFF, V1/V2/V3 grossly intact, face symmetric, tongue midline, intact, intact shoulder shrug, intact cough reflex, Intact Vestibulo-ocular r, intact corneal reflex, normal palatal elevation Speech examination: intact Sensorimotor examination: intact Motor examination - right side: 11/20: biceps, triceps, wrist flexion, wrist extension, byproducts supervisor, hip flexors, knee extensors, dorsiflexion, toe extension (EHL) , plantarflexion Motor examination - left side: 11/20: biceps, triceps, wrist flexion, wrist extension, byproducts supervisor, hip flexors, knee extensors, dorsiflexion, toe extension (EHL) , plantarflexion Detailed sensory examination: intact, light touch, temperature Reflex and gait examination: intact Reflexes: 2+: ankle, bicep, knee, tricep - Musculoskeletal Musculoskeletal: Present: no fluid collection, no pain, normal range of motion - Psychiatric Psychiatric: Present: mood/affect appropriate, cooperative Results - Laboratory Findings CBC and BMP: 11/16/16 08:25 11/16/16 08:25 Abnormal Lab Findings: Abnormal Labs 11/12/16 11/13/16 11/13/16 06:17 03:28 03:28 WBC 11.6 H RBC 5.07 H Hgb 15.3 H Hct RDW Lymph % (Auto) 11.5 L Seg Neutrophils % 81.9 H Seg Neutrophils # 9.5 H POC ABG pH POC ABG pCO2 POC ABG pO2 168 H Carbon Dioxide 21 L BUN 8 L Creatinine 0.6 L Glucose 73 L POC Glucose 11/14/16 11/14/16 11/16/16 04:45 04:45 06:01 WBC RBC 5.22 H Hgb 15.9 H Hct 47.1 H RDW Lymph % (Auto) Seg Neutrophils % Seg Neutrophils # POC ABG pH POC ABG pCO2 POC ABG pO2 Carbon Dioxide 20 L BUN 7 L Creatinine 0.7 L Glucose POC Glucose 271 H 11/16/16 11/16/16 11/16/16 06:46 08:25 08:25 WBC 25.0 H RBC 5.24 H Hgb 15.7 H Hct 48.2 H RDW 13.1 L Lymph % (Auto) Seg Neutrophils % Seg Neutrophils # POC ABG pH 6.956 L POC ABG pCO2 > 130.0 H POC ABG pO2 Carbon Dioxide BUN 6 L Creatinine 0.7 L Glucose 130 H POC Glucose 11/16/16 08:58 WBC RBC Hgb Hct RDW Lymph % (Auto) Seg Neutrophils % Seg Neutrophils # POC ABG pH 7.067 L POC ABG pCO2 109.9 H POC ABG pO2 74 L Carbon Dioxide BUN Creatinine Glucose POC Glucose Assessment and Plan 26 YO M Hx hypothyroidism, htn, polysubstance abuse-Etoh/BZD/Opioid dependency, MDD with prior suicidal attempt, presenting after being found down unresponsive suspected overdose. . He was placed on 1013. Pt reportedly had a ? GTC on which would be approx 10th of life always assoc w/ BZD withdrawal which he was displaying on admission. We did not initially resume his home Xanax/ Suboxone but he was then started on Librium w/o recurrence. UDS +methodone, barbiturates and benzodiazepines. Then 11/16/16 overnight CODE MET called due to over-sedation in setting of hypercarbia. I suspect toxic metabolic encephalopathy which has essentially resolved and recurrent BZD withdrawal seizure. Neuro exam nonfocal intact w/o deficits. CTH neg. Plan and Recommendation: 1. Telemetry bed w/ Q4 hour neuro checks & Sz precautions 2. Labs: Serum/Urine Tox, UA/UCx, Electrolytes especially Na, Ca, Mg, and Glucose, TSH/Vit B12/Ammonia and correct as necessary 3. Cont Infectious work up/medical management for UTI, PNA, cellulitis, bacteremia, etc. 4. Avoid hyponatremia, hypo/hyper-calcemia, hypo/hyperglycemia, acidosis, hypoxia/hypoxemia, hypercarbia/hypercapnia 5. Avoid institution of any psychoactive medications (e.g. antihistamines, anticholinergics, BZD, hypnotics, opiates) as able unless low doses of low potency antipsychotic needed for behavioral issues complicating medical care 6. AED therapy: Defer @ this time beyond resumption of prior BZD dosing or alternative w/ longer acting BZD if planning on managing BZD dependence while admitted. 7. Avoid meds that can lower sz threshold e.g. Tramadol, fluroquinolones, carbapenems 8. Given unknown EtOH Hx would supplement Thiamine, Folate and B12 9. Pt advised of [place] driving regulations: report date of presumed Seizure/ unexplained loss of consciousness/awareness spell to [facility], refrain from operating a motor vehicle for 6 months after this date, and avoid unsupervised activity particularly around water or heights 10. Neurologically clear for discharge once resolved fully to baseline w/o recurrent seizure for 24 hrs. 1. Follow up as outpt with Neurology
[2016-11-16] MEDS: CATAPRES PO SCH (15:34)
[2016-11-16] MEDS: EFFEXOR XR PO SCH (15:34)
[2016-11-16] MEDS: SUBOXONE 2 MG-0.5 MG SL SCH (15:34)
--- NOTE | 2016-11-16 17:52 | Progress Note ---
Subjective - Reason for Consult Consult date: 11/16/16 Reason for consult: Psychiatry Follow-up - Chief Complaint Chief complaint: "Patient on Bipap" 26 year old male seen in the ICU for psychiatric evaluation following an overdose. Code met was call this morning on patient and he was transferred to the ICU. ABG was drawn and it was abnormal (hypercapnia). Patient was placed on Bipap. Mental Status Exam - Vital signs Last Vital Signs Temp 98.1 F 11/16/16 16:00 Pulse 106 H 11/16/16 15:05 Resp 26 H 11/16/16 15:05 BP 146/86 11/16/16 15:05 Pulse Ox 98 11/16/16 15:05 - Exam Narrative exam: MSE: Appearance: lethargic Behavior: drowsy Speech: unable to assess Mood: unable to assess Affect: unable to assess Thought Process: unable to assess Thought Content: no gestures of SI/HI's and AVH's Motor Activity: lying in bed Cognition: sedated Insight: unable to assess Judgment: unable to assess Assessment and Plan Impression: 26 year old male seen in the ICU for psychiatric evaluation following an overdose. Code met was call this morning on patient and he was transferred to the ICU. ABG was drawn and it was abnormal (hypercapnia). Patient was placed on Bipap. Recommendation/Plan: Continue 1013 with possible placement to inpatient psy services. No benzos at this time or medications that can cause respiratory depression. Will continue to assess patient daily and collaborate with the ICU Attending.
[2016-11-16] MEDS: HABITROL TD SCH (22:34)
[2016-11-17] MEDS ORDERED: TYLENOL PO ONE (01:51)
[2016-11-17] MEDS: ZOFRAN IV PRN (02:08)
[2016-11-17 05:07] LABS: Hematocrit 45.1 % (35.5-45.6); Hemoglobin 15.2 gm/dl (11.8-15.2); Mean Corpuscular HGB Conc 34 % (32-34); Mean Corpuscular Hemoglobin 30 pg (28-32); Mean Corpuscular Volume 90 fl (84-94); Platelet Count 201 K/mm3 (140-440); Red Cell Distribution Width 12.7 % (13.2-15.2); White Blood Count 10.8 K/mm3 (4.5-11.0)
[2016-11-17 05:37] LABS: Anion Gap 18 mmol/L; Blood Urea Nitrogen 5 mg/dL (9-20); Calcium 8.9 mg/dL (8.4-10.2); Carbon Dioxide 27 mmol/L (22-30); Chloride 99.4 mmol/L (98-107); Glucose 86 mg/dL (75-100); Potassium 3.9 mmol/L (3.6-5.0); Sodium 140 mmol/L (137-145)
[2016-11-17] MEDS: SYNTHROID PO SCH (05:59)
--- NOTE | 2016-11-17 09:25 | Progress Note ---
Assessment and Plan 26 y/o male with acute respiratory failure secondary to overdose, possible suicide attempt, now back in ICU secondary to oversedation on floor. 1. Continue zofran for nausea 2. Would follow Psych recs closely. No benzo's or narcs given in ICU 3. Stable for transfer out of unit to either floor or inpatient psych facility. Subjective Date of service: 11/17/16 Interval history: Hypercapnea resolved. patient awake. Requesting medication. Had an episode of nausea and vomiting last night. Treated with zofran. Objective Vital Signs - 12hr 11/16/16 11/16/16 11/16/16 21:31 22:00 22:31 Temperature Pulse Rate 113 H 106 H 109 H Pulse Rate [ From Monitor] Respiratory 15 12 19 Rate Respiratory Rate [ Generalized] Blood Pressure 140/71 146/77 146/77 O2 Sat by Pulse 100 Oximetry 11/16/16 11/16/16 11/16/16 23:00 23:01 23:31 Temperature Pulse Rate 105 H 113 H Pulse Rate [ From Monitor] Respiratory 10 L 12 Rate Respiratory 27 H Rate [ Generalized] Blood Pressure 146/77 146/77 O2 Sat by Pulse Oximetry 11/17/16 11/17/16 11/17/16 00:00 00:01 00:31 Temperature 98.3 F Pulse Rate 117 H 110 H Pulse Rate [ 126 H From Monitor] Respiratory 31 H 14 10 L Rate Respiratory Rate [ Generalized] Blood Pressure 146/77 146/77 O2 Sat by Pulse 98 Oximetry 11/17/16 11/17/16 11/17/16 01:01 01:31 02:01 Temperature Pulse Rate 101 H 121 H 121 H Pulse Rate [ From Monitor] Respiratory 8 L 17 14 Rate Respiratory Rate [ Generalized] Blood Pressure 146/77 159/88 135/95 O2 Sat by Pulse 95 94 Oximetry 11/17/16 11/17/16 11/17/16 02:31 03:00 03:31 Temperature Pulse Rate 108 H 102 H 103 H Pulse Rate [ From Monitor] Respiratory 16 14 13 Rate Respiratory Rate [ Generalized] Blood Pressure 159/88 130/76 135/95 O2 Sat by Pulse 98 100 Oximetry 11/17/16 11/17/16 11/17/16 04:00 04:31 05:00 Temperature 98.1 F Pulse Rate 100 H 103 H 104 H Pulse Rate [ 111 H From Monitor] Respiratory 13 12 10 L Rate Respiratory Rate [ Generalized] Blood Pressure 132/84 132/84 133/75 O2 Sat by Pulse 97 99 97 Oximetry 11/17/16 11/17/16 11/17/16 05:31 06:01 06:31 Temperature Pulse Rate 102 H 95 H Pulse Rate [ From Monitor] Respiratory 11 L 12 Rate Respiratory Rate [ Generalized] Blood Pressure 132/84 133/75 133/75 O2 Sat by Pulse 99 96 99 Oximetry 11/17/16 11/17/16 11/17/16 07:00 07:31 07:50 Temperature 97.6 F Pulse Rate 107 H 88 Pulse Rate [ From Monitor] Respiratory 10 L 12 Rate Respiratory Rate [ Generalized] Blood Pressure 123/81 123/81 O2 Sat by Pulse 97 98 Oximetry 11/17/16 11/17/16 08:00 08:07 Temperature Pulse Rate 93 H Pulse Rate [ From Monitor] Respiratory 10 L Rate Respiratory Rate [ Generalized] Blood Pressure 122/77 O2 Sat by Pulse 98 100 Oximetry Constitutional: no acute distress Eyes: non-icteric ENT: oropharynx moist Neck: supple Effort: normal Ascultation: Bilateral: clear Percussion: Bilateral: not dull Cardiovascular: regular rate and rhythm Gastrointestinal: normoactive bowel sounds, soft, non-distended Integumentary: normal Extremities: no cyanosis, no edema Neurologic: unable to assess CBC and BMP: 11/17/16 03:59 11/17/16 03:59 ABG, PT/INR, D-dimer: ABG POC ABG pH 7.067 (7.35-7.45) L 11/16/16 08:58 POC ABG pCO2 109.9 (35-45) H 11/16/16 08:58 POC ABG pO2 74 (80-105) L 11/16/16 08:58 POC ABG HCO3 31.6 11/16/16 08:58 POC ABG Total CO2 35 11/16/16 08:58 POC ABG O2 Sat 85 11/16/16 08:58 Abnormal lab findings: Abnormal Labs 11/12/16 11/13/16 11/13/16 06:17 03:28 03:28 WBC 11.6 H RBC 5.07 H Hgb 15.3 H Hct RDW Lymph % (Auto) 11.5 L Seg Neutrophils % 81.9 H Seg Neutrophils # 9.5 H POC ABG pH POC ABG pCO2 POC ABG pO2 168 H Carbon Dioxide 21 L BUN 8 L Creatinine 0.6 L Glucose 73 L POC Glucose 11/14/16 11/14/16 11/16/16 04:45 04:45 06:01 WBC RBC 5.22 H Hgb 15.9 H Hct 47.1 H RDW Lymph % (Auto) Seg Neutrophils % Seg Neutrophils # POC ABG pH POC ABG pCO2 POC ABG pO2 Carbon Dioxide 20 L BUN 7 L Creatinine 0.7 L Glucose POC Glucose 271 H 11/16/16 11/16/16 11/16/16 06:46 08:25 08:25 WBC 25.0 H RBC 5.24 H Hgb 15.7 H Hct 48.2 H RDW 13.1 L Lymph % (Auto) Seg Neutrophils % Seg Neutrophils # POC ABG pH 6.956 L POC ABG pCO2 > 130.0 H POC ABG pO2 Carbon Dioxide BUN 6 L Creatinine 0.7 L Glucose 130 H POC Glucose 11/16/16 11/17/16 11/17/16 08:58 03:59 03:59 WBC RBC Hgb Hct RDW 12.7 L Lymph % (Auto) Seg Neutrophils % Seg Neutrophils # POC ABG pH 7.067 L POC ABG pCO2 109.9 H POC ABG pO2 74 L Carbon Dioxide BUN 5 L Creatinine 0.5 L Glucose POC Glucose
--- NOTE | 2016-11-17 09:35 | Discharge Summary ---
Providers - Providers Date of Admission: 11/11/16 19:16 Date of discharge: 11/17/16 Attending physician: CHELSY CERVANTES MD 11/11/16 19:34 psychiatry consult [Consult to Mental Health] [CONS] Routine Reason For Exam: suicide attempt Place consult to:: psych Notified:: kelli Phone number called:: [phone] Was contact made?: Yes If yes, spoke with:: kelli Time called:: 07:58 11/12/16 15:51 Speech Therapy Evaluation and Treat [CONS] Urgent Reason For Exam: Speech and swallow, post extubation 11/15/16 10:12 Consult to Case Management [CONS] Routine Services Needed at Discharge: Other Notified:: COPY LEFT FOR CM Comment:: mother wants [place] or [facility] or [facility] 11/16/16 08:09 Consult to Physician [CONS] Routine Consulting Provider: IRAIS CARBAJAL Reason For Exam: CCM Place consult to:: Franny DEWEY Notified:: pulm ass. Phone number called:: [phone] Was contact made?: No If yes, spoke with:: placed on list Time called:: 08:23 11/16/16 08:11 Consult to Physician [CONS] Routine Consulting Provider: CADEN POPE Reason For Exam: Seizures? Place consult to:: Vinnie DEWEY Notified:: palak fournier Phone number called:: [phone] Was contact made?: Yes Time called:: 08:27 Primary care physician: MANAGER [facility] Hospitalization Reason for admission: ENCEPHALOPATHY Condition: Serious Hospital course: Patient is a 26-year-old man with history of hypothyroidism, htn, polysubstance abuse, etoh dependency, MDD with prior suicidal attempt, chronic opioid and benzo dependency who presented after being found down and unresponsive. ? Sudicidal attempt. He was placed on 1013. We are not sure why he became unresponsive or what medications he took. His urine drug screen was positive for methodone, barbiturates and benzodiazepines. He has been on Suboxone for years. He was intubated for airway protection and admitted to [facility] ICU. He was extubated on 11/12/16. He was transferred to the 3rd floor on 11/13/16. He had a seizure on 11/14/16, at that time, mother was insisting that we sedate him more; also requested to transfer to ICU which was declined by [employer]. On 11/15/16 , d/w mother again and she was upset that he wasn't sedated enough and requested he be sent to [facility] or [facility] for withdrawals. She doesn't like our [facility] health services. I will try to honor her request, consulted case management. Restarted his home Suboxone, which he has been on for years. Also, added Librium. Then 11/16/16 overnight CODE MET called due to over-sedation, pulse ox droppped to 80%, pCO2 was verbally reported to me as [address] Elizondo, nocturnal hospitalist. He was given Flumazenil 0.5mg x1 which did not help and was repeated again, 0.5 mg x1. She was subsequently transferred to the ICU symptoms improved and was transferred back to the medical floor on 11/17/16 Discharge diagnosis -Acute hypoxic and hypercapneic respiratory failure -Drug overdose and suicidal attempt -Acute encephalopathy due to above, -Seizure Disposition: DC/TX PSY HOSP/PSY UNIT Time spent for discharge: 35 MINS Core Measure Documentation - Palliative Care Palliative Care/ Comfort Measures: Not Applicable - Core Measures Any of the following diagnoses?: none - VTE Discharge Requirements Deep Vein Thrombosis/Pulmonary Embolism Present on Admission: No Exam - Physical Exam Narrative exam: VITAL SIGNS: Reviewed. GENERAL: The patient appeared well nourished and normally developed. Vital signs as documented. HEAD: No signs of head trauma. EYES: Pupils are equal. Extraocular motions intact. EARS: Hearing grossly intact. MOUTH: Oropharynx is normal. NECK: No adenopathy, no JVD. CHEST: Chest with clear breath sounds bilaterally. No wheezes, rales, or rhonchi. CARDIAC: Regular rate and rhythm. S1 and S2, without murmurs, gallops, or rubs. VASCULAR: No Edema. Peripheral pulses normal and equal in all extremities. ABDOMEN: Soft, without detectable tenderness. No sign of distention. No rebound or guarding, and no masses palpated. Bowel Sounds normal. MUSCULOSKELETAL: Good range of motion of all major joints. Extremities without clubbing, cyanosis or edema. NEUROLOGIC EXAM: Alert and oriented x 3. No focal sensory or strength deficits. Speech normal. Follows commands. PSYCHIATRIC: Mood normal. SKIN: No rash or lesions. - Constitutional Vitals: Temp Pulse Resp BP Pulse Ox 97.6 F 100 H 12 122/77 90 11/17/16 07:50 11/17/16 08:31 11/17/16 08:31 11/17/16 09:13 11/17/16 09:13 Plan Activity: advance as tolerated Diet: regular Special Instructions: smoking cessation Follow up with: PRIMARY CARE, [Primary Care Provider] - 3-5 Days SPEEDY MORALES MD [Staff Physician] - 7 Days Prescriptions: Nicotine [Habitrol] 21 mg TD Q24H #30 patch
--- NOTE | 2016-11-17 10:13 | Electroencephalogram Report ---
Electroencephalogram EEG Date of exam: 11/16/16 History: 26 YO M hx benzo withdrawal seizures. Impression: Normal awake and drowsy 25 minute routine EEG. There are no findings to suggest cerebral dysfunction, cortical irritability, epileptiform discharges or electrographic seizures. Please note however that a normal EEG does not completely exclude a clinical diagnosis of epilepsy. Description: The waking background shows an appropriate organization with well-defined anterior posterior voltage and frequency gradients. Posteriorly, there is a well -developed alpha rhythm of 9-10 Hz which is symmetrical and bilaterally reactive. Anteriorly, there is a pattern of lower voltage and slightly irregular theta and beta range frequencies. During drowsiness, there is attenuation of the background rhythms. The sleep background shows normal organization with well-formed sleep spindles and vertex waves which are synchronous and symmetrical. Throughout, the recording there are no epileptiform abnormalities, focal or lateralizing features, or significant interhemispheric findings. Interpretation: This is a digitally acquired 21-channel electroencephalogram. Both bipolar and referential montages were used in interpretation. Electrodes were placed in accordance with the International 10-20 system.
[2016-11-17] MEDS: VITAMIN B-1 PO SCH (12:27)
[2016-11-17] MEDS: LOVENOX SUB-Q SCH (12:27)
[2016-11-17] MEDS: FOLVITE PO SCH (12:27)
--- NOTE | 2016-11-17 13:07 | Progress Note ---
Subjective - Reason for Consult Consult date: 11/17/16 Reason for consult: Psychiatry Follow-up - Chief Complaint Chief complaint: "When can I get the Suboxone" Patient is a 26-year-old man with history of hypothyroidism, htn and major depression disorder with prior suicidal attempt Today patient calm and cooperative during discussion. He started the conversation by saying, "I would like my Suboxone." I explained to him his medical status and informed him Suboxone at this time would not be safe. He stated, "When I'm not on Suboxone, I use Heroin." Patient denies SI/HI's, AVH's or being depressed. Per the residential treatment staff patient stated having a seizure overnight. Mental Status Exam - Vital signs Last Vital Signs Temp 97.4 F L 11/17/16 12:00 Pulse 100 H 11/17/16 08:31 Resp 12 11/17/16 08:31 BP 122/77 11/17/16 09:13 Pulse Ox 90 11/17/16 09:13 - Exam Narrative exam: MSE: Appearance: calm, cooperative Behavior: poor eye contact Speech: regular rate and tone Mood: "I feel sore all over" Affect: flat Thought Process: circumstantial Thought Content: denies SI/HI's and AVH's Motor Activity: lying in bed Cognition: a/ox3 Insight: poor Judgment: poor Assessment and Plan Impression: Patient is a 26-year-old man with history of hypothyroidism, htn and major depression disorder with prior suicidal attempt Today patient calm and cooperative during discussion. He started the conversation by saying, "I would like my Suboxone." I explained to him his medical status and informed him Suboxone at this time would not be safe. Recommendation/Plan: Continue 1013 with possible placement to inpatient psy services. No benzos or suboxone recommended at this time. Will continue to assess patient daily and collaborate with the attending physician.
--- NOTE | 2016-11-17 13:18 | Consultation ---
History of Present Illness - Reason for Consult Consult date: 11/17/16 - Chief Complaint Chief complaint: "When can I get the Suboxone" Patient is a 26-year-old man with history of hypothyroidism, htn and major depression disorder with prior suicidal attempt Today patient calm and cooperative during discussion. He started the conversation by saying, "I would like my Suboxone." I explained to him his medical status and informed him Suboxone at this time would not be safe. He stated, "When I'm not on Suboxone, I use Heroin." Patient denies SI/HI's, AVH's or being depressed. Per the entry level staff accountant patient stated having a seizure overnight. Medications and Allergies Allergies Allergy/AdvReac Type Severity Reaction Status Date / Time No Known Allergies Allergy Verified 04/25/16 10:15 Home Medications Medication Instructions Recorded Confirmed Last Taken Type Levothyroxine [Synthroid] 100 mcg PO QAM 11/11/16 11/11/16 Unknown History Venlafaxine HCl [Venlafaxin ER] 150 mg PO QDAY 11/11/16 11/11/16 Unknown History Suboxone 8 mg-2 mg SL Film 8 mg SL TID MDD maintenance 11/14/16 11/14/16 History Nicotine [Habitrol] 21 mg TD Q24H #30 patch 11/17/16 Unknown Rx Active Meds: Active Medications Enoxaparin Sodium (Lovenox) 40 mg SUB-Q QDAY@1000 [facility] Last Admin: 11/17/16 12:27 Dose: 40 mg Folic Acid (Folvite) 1 mg PO DAILY [facility] Last Admin: 11/17/16 12:27 Dose: 1 mg Hydrophilic Ointment (Vaseline Lip Therapy) 1 applic TP Q2HR PRN PRN Reason: Dry Lips Levothyroxine Sodium (Synthroid) 100 mcg PO DAILY@0600 [facility] Last Admin: 11/17/16 05:59 Dose: 100 mcg Nicotine (Habitrol) 21 mg TD Q24H [facility] Last Admin: 11/16/16 22:34 Dose: 21 mg Ondansetron HCl (Zofran) 4 mg IV Q6H PRN PRN Reason: Nausea And Vomiting Last Admin: 11/17/16 02:08 Dose: 4 mg Thiamine HCl (Vitamin B-1) 100 mg PO QDAY [facility] Last Admin: 11/17/16 12:27 Dose: 100 mg Mental Status Exam - Vital signs Last Vital Signs Temp 97.4 F L 11/17/16 12:00 Pulse 100 H 11/17/16 08:31 Resp 12 11/17/16 08:31 BP 122/77 11/17/16 09:13 Pulse Ox 90 11/17/16 09:13 Results Result Diagrams: 11/17/16 03:59 11/17/16 03:59 Abnormal lab results 11/17/16 11/17/16 Range/Units 03:59 03:59 RDW 12.7 L (13.2-15.2) % BUN 5 L (9-20) mg/dL Creatinine 0.5 L (0.8-1.5) mg/dL All other labs normal.
--- NOTE | 2016-11-17 18:15 | Progress Note ---
Assessment and Plan Assessment and plan: Patient is a 26-year-old man with history of hypothyroidism, htn, polysubstance abuse, etoh dependency, MDD with prior suicidal attempt, chronic opioid and benzo dependency who presented after being found down and unresponsive. ? Sudicidal attempt. He was placed on 1013. We are not sure why he became unresponsive or what medications he took. His urine drug screen was positive for methodone, barbiturates and benzodiazepines. He has been on Suboxone for years. He was intubated for airway protection and admitted to [facility] ICU. He was extubated on 11/12/16. He was transferred to the 3rd floor on 11/13/16. He had a seizure on 11/14/16, at that time, mother was insisting that we sedate him more; also requested to transfer to ICU which was declined by [employer] [employer]. On 11/15/16 , d/w mother again and she was upset that he wasn't sedated enough and requested he be sent to [facility] or [facility] facility for withdrawals. She doesn't like our [facility] health services. I will try to honor her request, consulted case management. Restarted his home Suboxone, which he has been on for years. Also, added Librium. Then 11/16/16 overnight CODE MET called due to over-sedation, pulse ox droppped to 80%, pCO2 was verbally reported to me as [address] Elizondo, nocturnal hospitalist. He was given Flumazenil 0.5mg x1 which did not help and was repeated again, 0.5 mg x1. I went to evaluate Mr. Brock prior to 7am and he had woke up (a/o x 3) asking for his Suboxone. I transferred him to the ICU. -Acute hypoxic and hypercapneic respiratory failure status post intubation and extubation: OXYGEN WEANED OFF. CAN TRANSFER TO MEDICAL FLOOR AND DISCHARGE ONCE INPATIENT PSYCH BED AVAILABLE. -Drug overdose and suicidal attempt: Continue 1013 and mental health follow-up -Acute encephalopathy due to above, resolved -DVT prophylaxis: scd and sq lovenox -Seizure-like activity likely due to alcohol or opioids withdrawals, current CIWA, sitter at bedside watching for safety, added telemetry monitoring, ordered EEG -DVT prophylaxis: sq Lovenox -Disposition: Transfer to FLOOR TODAY, AND ONCE A BED IS AVAILABLE CAN TRANSFER TO INPATIENT PSYCH. PATIENT IS MEDICALLY STABLE. History Interval history: Patient seen and examined today in no acute distress. Denies any chest pain, nausea vomiting or diarrhea. No adverse event reported by nursing staff. Hospitalist Physical - Physical exam Narrative exam: GEN: WDWN, NAD, AWAKE, ALERT, ORIENTATED 3 CVS: Regular tachycardic, NORMAL S1S2 LUNGS/CHEST: CTA B, NORMAL CHEST EXPANSION B, GOOD AIR ENTRY B ABD: SOFT NTND, GBS, NO REBOUND OR GUARDING EXT/SKIN: NO SIGNIFICANT EDEMA, CUTS ON ARMS MSK: FROM X 4 EXTREMITIES NEURO: CN 2-12 GROSSLY INTACT, no pronator drift, no isolated weakness PSY: CALM - Constitutional Vitals: Temp Pulse Resp BP Pulse Ox 97.9 F 99 H 10 L 128/91 97 11/17/16 16:00 11/17/16 11:00 11/17/16 10:00 11/17/16 14:19 11/17/16 16:41 General appearance: Present: no acute distress Results - Labs CBC & Chem 7: 11/17/16 03:59 11/17/16 03:59 Labs: Laboratory Last Values WBC 10.8 K/mm3 (4.5-11.0) 11/17/16 03:59 RBC 5.00 M/mm3 (3.65-5.03) 11/17/16 03:59 Hgb 15.2 gm/dl (11.8-15.2) 11/17/16 03:59 Hct 45.1 % (35.5-45.6) 11/17/16 03:59 MCV 90 fl (84-94) 11/17/16 03:59 MCH 30 pg (28-32) 11/17/16 03:59 MCHC 34 % (32-34) 11/17/16 03:59 RDW 12.7 % (13.2-15.2) L 11/17/16 03:59 Plt Count 201 K/mm3 (140-440) 11/17/16 03:59 Lymph % (Auto) 11.5 % (13.4-35.0) L 11/13/16 03:28 [place] % (Auto) 5.7 % (0.0-7.3) 11/13/16 03:28 Eos % (Auto) 0.4 % (0.0-4.3) 11/13/16 03:28 Baso % (Auto) 0.5 % (0.0-1.8) 11/13/16 03:28 Lymph # 1.3 K/mm3 (1.2-5.4) 11/13/16 03:28 [place] # 0.7 K/mm3 (0.0-0.8) 11/13/16 03:28 Eos # 0.0 K/mm3 (0.0-0.4) 11/13/16 03:28 Baso # 0.1 K/mm3 (0.0-0.1) 11/13/16 03:28 Seg Neutrophils % 81.9 % (40.0-70.0) H 11/13/16 03:28 Seg Neutrophils # 9.5 K/mm3 (1.8-7.7) H 11/13/16 03:28 POC ABG pH 7.067 (7.35-7.45) L 11/16/16 08:58 POC ABG pCO2 109.9 (35-45) H 11/16/16 08:58 POC ABG pO2 74 (80-105) L 11/16/16 08:58 POC ABG HCO3 31.6 11/16/16 08:58 POC ABG Total CO2 35 11/16/16 08:58 POC ABG O2 Sat 85 11/16/16 08:58 POC ABG Base Excess 1 11/16/16 08:58 FiO2 44 % 11/16/16 08:58 Sodium 140 mmol/L (137-145) 11/17/16 03:59 Potassium 3.9 mmol/L (3.6-5.0) 11/17/16 03:59 Chloride 99.4 mmol/L (98-107) 11/17/16 03:59 Carbon Dioxide 27 mmol/L (22-30) 11/17/16 03:59 Anion Gap 18 mmol/L 11/17/16 03:59 BUN 5 mg/dL (9-20) L 11/17/16 03:59 Creatinine 0.5 mg/dL (0.8-1.5) L 11/17/16 03:59 Estimated GFR > 60 ml/min 11/17/16 03:59 BUN/Creatinine Ratio 10.00 % 11/17/16 03:59 Glucose 86 mg/dL (75-100) 11/17/16 03:59 POC Glucose 86 (70-105) 11/17/16 12:07 Calcium 8.9 mg/dL (8.4-10.2) 11/17/16 03:59 Magnesium 2.10 mg/dL (1.7-2.3) 11/16/16 08:25 Total Bilirubin 0.20 mg/dL (0.1-1.2) 11/16/16 08:25 AST 15 units/L (5-40) 11/16/16 08:25 ALT 12 units/L (7-56) 11/16/16 08:25 Alkaline Phosphatase 89 units/L (35-129) 11/16/16 08:25 Total Protein 7.6 g/dL (6.3-8.2) 11/16/16 08:25 Albumin 4.4 g/dL (3.9-5) 11/16/16 08:25 Albumin/Globulin Ratio 1.4 % 11/16/16 08:25 TSH 1.360 mlU/mL (0.270-4.200) 11/11/16 15:55 Urine Color Yellow (Yellow) 11/11/16 16:13 Urine Turbidity Clear (Clear) 11/11/16 16:13 Urine pH 6.0 (5.0-7.0) 11/11/16 16:13 Ur Specific [place] 1.023 (1.003-1.030) 11/11/16 16:13 Urine Protein 30 mg/dl mg/dL (Negative) 11/11/16 16:13 Urine Glucose (UA) Neg mg/dL (Negative) 11/11/16 16:13 Urine Ketones Neg mg/dL (Negative) 11/11/16 16:13 Urine Blood Neg (Negative) 11/11/16 16:13 Urine Nitrite Neg (Negative) 11/11/16 16:13 Urine Bilirubin Neg (Negative) 11/11/16 16:13 Urine Urobilinogen < 2.0 mg/dL (<2.0) 11/11/16 16:13 Ur Leukocyte Esterase Neg (Negative) 11/11/16 16:13 Urine WBC (Auto) 1.0 /HPF (0.0-6.0) 11/11/16 16:13 Urine RBC (Auto) 1.0 /HPF (0.0-6.0) 11/11/16 16:13 Urine Mucus Few /HPF 11/11/16 16:13 Salicylates < 0.3 mg/dL (2.8-20.0) L 11/11/16 15:55 Urine Opiates Screen Presumptive negative 11/11/16 16:13 Urine Methadone Screen Presumptive positive 11/11/16 16:13 Acetaminophen < 15.0 ug/mL (10.0-30.0) 11/11/16 16:20 Ur Barbiturates Screen Presumptive positive 11/11/16 16:13 Ur Phencyclidine Scrn Presumptive negative 11/11/16 16:13 Ur Amphetamines Screen Presumptive negative 11/11/16 16:13 U Benzodiazepines Scrn Presumptive positive 11/11/16 16:13 Urine Cocaine Screen Presumptive negative 11/11/16 16:13 U Marijuana (THC) Screen Presumptive negative 11/11/16 16:13 Drugs of Abuse Note Disclamer 11/11/16 16:13 Plasma/Serum Alcohol < 0.01 gm% (0-0.07) 11/11/16 15:55
[2016-11-17] MEDS: HABITROL TD SCH (18:37)
[2016-11-18] MEDS: SYNTHROID PO SCH (06:07)
[2016-11-18] MEDS: VITAMIN B-1 PO SCH (11:04)
[2016-11-18] MEDS: FOLVITE PO SCH (11:05)
[2016-11-18] MEDS: LOVENOX SUB-Q SCH (11:05)
--- NOTE | 2016-11-18 12:35 | Progress Note ---
Subjective - Reason for Consult Consult date: 11/18/16 Reason for consult: psychiatric follow up - Chief Complaint Chief complaint: "I'm tired" Patient is a 26-year-old man with history of hypothyroidism, htn and major depression disorder with prior suicidal attempt. Today patient is resting and irritable when interviewed. Suboxone has not been recommended at this time. Patient denies SI/HI's, AVH's or being depressed. He wants to go to [facility] inpatient facility. Mental Status Exam - Vital signs Last Vital Signs Temp 97.7 F 11/18/16 08:00 Pulse 92 H 11/18/16 08:00 Resp 18 11/18/16 08:00 BP 128/76 11/18/16 08:00 Pulse Ox 99 11/18/16 08:25 - Exam Narrative exam: Appearance: calm, cooperative Behavior: poor eye contact Speech: regular rate and tone Mood: "tired" he is irritable Affect: flat Thought Process: limited in scope Thought Content: denies SI/HI's and AVH's Motor Activity: lying in bed Cognition: a/ox3 Insight: poor Judgment: poor Assessment and Plan Impression: Opioid use disorder, severe Benzodiazepine use-dependence type MDD Plan: 1013 and transfer to inpatient psychiatric hospital No benzos or suboxone recommended at this time.
--- NOTE | 2016-11-18 14:21 | Progress Note ---
Assessment and Plan Assessment and plan: Patient is a 26-year-old man with history of hypothyroidism, htn, polysubstance abuse, etoh dependency, MDD with prior suicidal attempt, chronic opioid and benzo dependency who presented after being found down and unresponsive. ? Sudicidal attempt. He was placed on 1013. We are not sure why he became unresponsive or what medications he took. His urine drug screen was positive for methodone, barbiturates and benzodiazepines. He has been on Suboxone for years. He was intubated for airway protection and admitted to [facility] ICU. He was extubated on 11/12/16. He was transferred to the 3rd floor on 11/13/16. He had a seizure on 11/14/16, at that time, mother was insisting that we sedate him more; also requested to transfer to ICU which was declined by [employer]. On 11/15/16 , d/w mother again and she was upset that he wasn't sedated enough and requested he be sent to [facility] or [facility] facility for withdrawals. She doesn't like our [place] mental health services. I will try to honor her request, consulted case management. Restarted his home Suboxone, which he has been on for years. Also, added Librium. Then 11/16/16 overnight CODE MET called due to over-sedation, pulse ox droppped to 80%, pCO2 was verbally reported to me as [address] Elizondo, nocturnal hospitalist. He was given Flumazenil 0.5mg x1 which did not help and was repeated again, 0.5 mg x1. She was subsequently transferred to the ICU symptoms improved and was transferred back to the medical floor on 11/17/16 -Acute hypoxic and hypercapneic respiratory failure status post intubation and extubation: OXYGEN WEANED OFF. Awaiting transfer to inpatient psych when bed available -Drug overdose and suicidal attempt: Continue 1013 and mental health follow-up -Acute encephalopathy due to above, resolved -Seizure-like activity likely due to alcohol or opioids withdrawals, current CIWA, sitter at bedside watching for safety, added telemetry monitoring, ordered EEG -DVT prophylaxis: sq Lovenox -DVT prophylaxis: scd and sq lovenox -Disposition: Awaiting bed availability to transfer to inpatient psych History Interval history: Patient seen and examined today in no acute distress. Anxious this morning and wanted to call family. Denies any chest pain, nausea vomiting or diarrhea. No adverse event reported by nursing staff. Hospitalist Physical - Physical exam Narrative exam: VITAL SIGNS: Reviewed. GENERAL: The patient appeared well nourished and normally developed. Vital signs as documented. HEAD: No signs of head trauma. EYES: Pupils are equal. Extraocular motions intact. EARS: Hearing grossly intact. MOUTH: Oropharynx is normal. NECK: No adenopathy, no JVD. CHEST: Chest with clear breath sounds bilaterally. No wheezes, rales, or rhonchi. CARDIAC: Regular rate and rhythm. S1 and S2, without murmurs, gallops, or rubs. VASCULAR: No Edema. Peripheral pulses normal and equal in all extremities. ABDOMEN: Soft, without detectable tenderness. No sign of distention. No rebound or guarding, and no masses palpated. Bowel Sounds normal. MUSCULOSKELETAL: Good range of motion of all major joints. Extremities without clubbing, cyanosis or edema. NEUROLOGIC EXAM: Alert and oriented x 3. No focal sensory or strength deficits. Speech normal. Follows commands. PSYCHIATRIC: Mood normal. SKIN: No rash or lesions. - Constitutional Vitals: Temp Pulse Resp BP Pulse Ox 97.7 F 92 H 18 128/76 99 11/18/16 08:00 11/18/16 08:00 11/18/16 08:00 11/18/16 08:00 11/18/16 08:25 General appearance: Present: no acute distress Results - Labs CBC & Chem 7: 11/17/16 03:59 11/17/16 03:59 Labs: Laboratory Last Values WBC 10.8 K/mm3 (4.5-11.0) 11/17/16 03:59 RBC 5.00 M/mm3 (3.65-5.03) 11/17/16 03:59 Hgb 15.2 gm/dl (11.8-15.2) 11/17/16 03:59 Hct 45.1 % (35.5-45.6) 11/17/16 03:59 MCV 90 fl (84-94) 11/17/16 03:59 MCH 30 pg (28-32) 11/17/16 03:59 MCHC 34 % (32-34) 11/17/16 03:59 RDW 12.7 % (13.2-15.2) L 11/17/16 03:59 Plt Count 201 K/mm3 (140-440) 11/17/16 03:59 Lymph % (Auto) 11.5 % (13.4-35.0) L 11/13/16 03:28 [place] % (Auto) 5.7 % (0.0-7.3) 11/13/16 03:28 Eos % (Auto) 0.4 % (0.0-4.3) 11/13/16 03:28 Baso % (Auto) 0.5 % (0.0-1.8) 11/13/16 03:28 Lymph # 1.3 K/mm3 (1.2-5.4) 11/13/16 03:28 [place] # 0.7 K/mm3 (0.0-0.8) 11/13/16 03:28 Eos # 0.0 K/mm3 (0.0-0.4) 11/13/16 03:28 Baso # 0.1 K/mm3 (0.0-0.1) 11/13/16 03:28 Seg Neutrophils % 81.9 % (40.0-70.0) H 11/13/16 03:28 Seg Neutrophils # 9.5 K/mm3 (1.8-7.7) H 11/13/16 03:28 POC ABG pH 7.067 (7.35-7.45) L 11/16/16 08:58 POC ABG pCO2 109.9 (35-45) H 11/16/16 08:58 POC ABG pO2 74 (80-105) L 11/16/16 08:58 POC ABG HCO3 31.6 11/16/16 08:58 POC ABG Total CO2 35 11/16/16 08:58 POC ABG O2 Sat 85 11/16/16 08:58 POC ABG Base Excess 1 11/16/16 08:58 FiO2 44 % 11/16/16 08:58 Sodium 140 mmol/L (137-145) 11/17/16 03:59 Potassium 3.9 mmol/L (3.6-5.0) 11/17/16 03:59 Chloride 99.4 mmol/L (98-107) 11/17/16 03:59 Carbon Dioxide 27 mmol/L (22-30) 11/17/16 03:59 Anion Gap 18 mmol/L 11/17/16 03:59 BUN 5 mg/dL (9-20) L 11/17/16 03:59 Creatinine 0.5 mg/dL (0.8-1.5) L 11/17/16 03:59 Estimated GFR > 60 ml/min 11/17/16 03:59 BUN/Creatinine Ratio 10.00 % 11/17/16 03:59 Glucose 86 mg/dL (75-100) 11/17/16 03:59 POC Glucose 86 (70-105) 11/17/16 12:07 Calcium 8.9 mg/dL (8.4-10.2) 11/17/16 03:59 Magnesium 2.10 mg/dL (1.7-2.3) 11/16/16 08:25 Total Bilirubin 0.20 mg/dL (0.1-1.2) 11/16/16 08:25 AST 15 units/L (5-40) 11/16/16 08:25 ALT 12 units/L (7-56) 11/16/16 08:25 Alkaline Phosphatase 89 units/L (35-129) 11/16/16 08:25 Total Protein 7.6 g/dL (6.3-8.2) 11/16/16 08:25 Albumin 4.4 g/dL (3.9-5) 11/16/16 08:25 Albumin/Globulin Ratio 1.4 % 11/16/16 08:25 TSH 1.360 mlU/mL (0.270-4.200) 11/11/16 15:55 Urine Color Yellow (Yellow) 11/11/16 16:13 Urine Turbidity Clear (Clear) 11/11/16 16:13 Urine pH 6.0 (5.0-7.0) 11/11/16 16:13 Ur Specific [place] 1.023 (1.003-1.030) 11/11/16 16:13 Urine Protein 30 mg/dl mg/dL (Negative) 11/11/16 16:13 Urine Glucose (UA) Neg mg/dL (Negative) 11/11/16 16:13 Urine Ketones Neg mg/dL (Negative) 11/11/16 16:13 Urine Blood Neg (Negative) 11/11/16 16:13 Urine Nitrite Neg (Negative) 11/11/16 16:13 Urine Bilirubin Neg (Negative) 11/11/16 16:13 Urine Urobilinogen < 2.0 mg/dL (<2.0) 11/11/16 16:13 Ur Leukocyte Esterase Neg (Negative) 11/11/16 16:13 Urine WBC (Auto) 1.0 /HPF (0.0-6.0) 11/11/16 16:13 Urine RBC (Auto) 1.0 /HPF (0.0-6.0) 11/11/16 16:13 Urine Mucus Few /HPF 11/11/16 16:13 Salicylates < 0.3 mg/dL (2.8-20.0) L 11/11/16 15:55 Urine Opiates Screen Presumptive negative 11/11/16 16:13 Urine Methadone Screen Presumptive positive 11/11/16 16:13 Acetaminophen < 15.0 ug/mL (10.0-30.0) 11/11/16 16:20 Ur Barbiturates Screen Presumptive positive 11/11/16 16:13 Ur Phencyclidine Scrn Presumptive negative 11/11/16 16:13 Ur Amphetamines Screen Presumptive negative 11/11/16 16:13 U Benzodiazepines Scrn Presumptive positive 11/11/16 16:13 Urine Cocaine Screen Presumptive negative 11/11/16 16:13 U Marijuana (THC) Screen Presumptive negative 11/11/16 16:13 Drugs of Abuse Note Disclamer 11/11/16 16:13 Plasma/Serum Alcohol < 0.01 gm% (0-0.07) 11/11/16 15:55
[2016-11-18 17:09] VITALS: BP 136/86
[2016-11-18] MEDS ORDERED: EFFEXOR XR PO SCH (17:30)
[2016-11-18] MEDS: HABITROL TD SCH (18:46)
== END 2016-11-18 22:41 | DRG 917 ==
LOC: ED 15:38 → CC1 19:16 → 3A 11-13 16:36 → CC1 11-16 07:29 → 3A 11-17 16:51
PROVIDERS: ADMIT Internal Medicine; ATTEND Internal Medicine
PROC: 5A1935Z Respiratory Ventilation, Less than 24 Consecutive Hours (ICD-10-PCS; principal; 2016-11-11)
PROC: 0BH17EZ Insertion of Endotracheal Airway into Trachea, Via Natural or Artificial Opening (ICD-10-PCS; 2016-11-11)
PROC: 5A09357 Assistance with Respiratory Ventilation, Less than 24 Consecutive Hours, Continuous Positive Airway Pressure (ICD-10-PCS; 2016-11-11)
PROC: 4A033R1 Measurement of Arterial Saturation, Peripheral, Percutaneous Approach (ICD-10-PCS; 2016-11-11)
DX: T42.4X2A Poisoning by benzodiazepines, intentional self-harm, initial encounter (principal); J96.01 Acute respiratory failure with hypoxia; G92 Toxic encephalopathy; J96.02 Acute respiratory failure with hypercapnia; F19.10 Other psychoactive substance abuse, uncomplicated; I10 Essential (primary) hypertension; E05.90 Thyrotoxicosis, unspecified without thyrotoxic crisis or storm; F32.9 Major depressive disorder, single episode, unspecified; F10.20 Alcohol dependence, uncomplicated; Y92.9 Unspecified place or not applicable
CPT/HCPCS: 36415; 36600; 70450; 71010; 80048; 80053; 80307; 80320; 81001; 82803; 82962; 83735; 84443; 85025; 85027; 87205; 90471; 90714; 93005; 93010; 94002; 94003; 94660; 94760; 95819; 96361; 96374; G0480; J0330; J1650; J2060; J2310; J2405; J2704; J7030; J7040

== ENCOUNTER 2018-08-18 21:34 | Inpatient (IN) | payer BC, OTHER ==
[2018-08-18] MEDS ORDERED: ATIVAN IV ONE (21:44)
[2018-08-18] MEDS ORDERED: NACL 0.9% 1000 ML 1,000 ML IV ONE (21:45)
[2018-08-18] MEDS ORDERED: ATIVAN ONE (21:45)
--- NOTE | 2018-08-18 21:57 | Emergency Department Report ---
HPI - General Chief Complaint: Seizure Time Seen by Provider: 08/18/18 21:38 - HPI HPI: Room 24 The patient is 28-year-old male presented with a chief complaint of seizure. The patient is currently at [facility] under a 1013 for suicidal ideation. The patient takes Klonopin for PTSD states he normally takes 2 mg TID. While at [place] his Klonopin was decreased to 2 mg BID 3 days ago. Today staff witnessed the patient having a generalized tonic-clonic seizure lasting 5-15 minutes. The patient was administered Ativan 2 mg IM and transported to the ED. The patient appears anxious and states he feels like he did just prior to having his seizure today. Patient has a history of seizures secondary to benzodiazepine withdrawal Location: [facility] Duration: [See above] Quality: Generalized tonic-clonic Severity: Moderate Modifying factors: [see above] Context: [see above] Mode of transportation: [not driving] ED Past Medical Hx - Past Medical History Previous Medical History?: Yes Hx Hypertension: Yes Hx Psychiatric Treatment: Yes (, PTSD) Additional medical history: Hypothyroidism - Surgical History Past Surgical History?: Yes Additional Surgical History: unknown - Family History Family history: no significant - Social History Smoking Status: Current Every Day Smoker (1 pack per day) Substance Use Type: None Other Social History: History of IVDA last summer - Medications Home Medications: Home Medications Medication Instructions Recorded Confirmed Last Taken Type Levothyroxine [Synthroid] 100 mcg PO QAM 11/11/16 11/11/16 Unknown History Venlafaxine HCl [Venlafaxin ER] 150 mg PO QDAY 11/11/16 11/11/16 Unknown History Suboxone 8 mg-2 mg SL Film 8 mg SL TID MDD maintenance 11/14/16 11/14/16 11/11/16 History Nicotine [Habitrol] 21 mg TD Q24H #30 patch 11/17/16 Unknown Rx ED Review of Systems ROS: Stated complaint: SEIZURE Other details as noted in HPI Constitutional: no symptoms reported Eyes: denies: eye pain ENT: denies: throat pain Respiratory: no symptoms reported Cardiovascular: denies: chest pain Endocrine: no symptoms reported Gastrointestinal: denies: abdominal pain Genitourinary: denies: dysuria Musculoskeletal: myalgia Neurological: denies: headache Physical Exam - Physical Exam Vital Signs: Vital Signs 08/18/18 08/18/18 21:42 21:48 Temperature 98.6 F Pulse Rate 93 H 91 H Respiratory 13 15 Rate Blood Pressure 141/71 [Left] O2 Sat by Pulse 92 Oximetry Physical Exam: GENERAL: The patient is well-developed well-nourished male lying on stretcher appearing anxious purposely with his arms back and forth. The movement stops when he is given a task to focus on. [] HEENT: Normocephalic. Atraumatic. Extraocular motions are intact. Patient has moist mucous membranes. NECK: Supple. Trachea midline CHEST/LUNGS: Clear to auscultation. There is no respiratory distress noted. HEART/CARDIOVASCULAR: Regular. There is no tachycardia. There is no gallop rub or murmur. ABDOMEN: Abdomen is soft, nontender. Patient has normal bowel sounds. There is no abdominal distention. SKIN: There is no rash. There is no edema. There is no diaphoresis. NEURO: The patient is awake, alert, and oriented. The patient is cooperative. The patient has no focal neurologic deficits. The patient has normal speech. Cranial nerves II through XII grossly intact MUSCULOSKELETAL: There is no evidence of acute injury. ED Course Vital Signs 08/18/18 08/18/18 21:42 21:48 Temperature 98.6 F Pulse Rate 93 H 91 H Respiratory 13 15 Rate Blood Pressure 141/71 [Left] O2 Sat by Pulse 92 Oximetry ED Medical Decision Making - Lab Data Result diagrams: 08/18/18 21:54 08/18/18 21:54 Laboratory Tests 08/18/18 08/18/18 08/18/18 21:54 21:54 21:54 WBC 6.1 RBC 4.22 Hgb 12.4 Hct 37.0 MCV 88 MCH 29 MCHC 34 RDW 12.6 L Plt Count 226 Lymph % (Auto) 31.2 [place] % (Auto) 8.1 H Eos % (Auto) 2.0 Baso % (Auto) 0.7 Lymph # 1.9 [place] # 0.5 Eos # 0.1 Baso # 0.0 Seg Neutrophils % 58.0 Seg Neutrophils # 3.5 PT 12.7 INR 0.91 APTT 27.9 Sodium 140 Potassium 4.4 Chloride 103.6 Carbon Dioxide 30 Anion Gap 11 BUN 11 Creatinine 0.7 L Estimated GFR > 60 BUN/Creatinine Ratio 16 Glucose 91 Calcium 9.3 Magnesium Total Bilirubin < 0.20 AST 36 ALT 53 Alkaline Phosphatase 79 Total Creatine Kinase Total Protein 6.8 Albumin 4.1 Albumin/Globulin Ratio 1.5 08/18/18 08/18/18 21:54 22:03 WBC RBC Hgb Hct MCV MCH MCHC RDW Plt Count Lymph % (Auto) [place] % (Auto) Eos % (Auto) Baso % (Auto) Lymph # [place] # Eos # Baso # Seg Neutrophils % Seg Neutrophils # PT INR APTT Sodium Potassium Chloride Carbon Dioxide Anion Gap BUN Creatinine Estimated GFR BUN/Creatinine Ratio Glucose Calcium Magnesium 2.00 Total Bilirubin AST ALT Alkaline Phosphatase Total Creatine Kinase 203 H Total Protein Albumin Albumin/Globulin Ratio - Differential Diagnosis benzodiazepine withdrawal Critical care attestation.: If time is entered above; I have spent that time in minutes in the direct care of this critically ill patient, excluding procedure time. ED Disposition Clinical Impression: Benzodiazepine withdrawal, Suicidal ideation Disposition: OP ADMIT IP TO THIS HOSP Is pt being admited?: Yes Does the pt Need Aspirin: No Condition: Fair Time of Disposition: 22:51 (hospitalist paged. (Dr. Cherri Rojo))
[2018-08-18 22:23] LABS: Basophils % (Auto) 0.7 % (0.0-1.8); Eosinophils # (Auto) 0.1 K/mm3 (0.0-0.4); Hemoglobin 12.4 gm/dl (11.8-15.2); Lymphocytes # (Auto) 1.9 K/mm3 (1.2-5.4); Lymphocytes % (Auto) 31.2 % (13.4-35.0); Mean Corpuscular HGB Conc 34 % (32-34); Mean Corpuscular Volume 88 fl (84-94); Monocytes # (Auto) 0.5 K/mm3 (0.0-0.8); Monocytes % (Auto) 8.1 % (0.0-7.3); Platelet Count 226 K/mm3 (140-440); Red Blood Count 4.22 M/mm3 (3.65-5.03); Red Cell Distribution Width 12.6 % (13.2-15.2)
[2018-08-18] MEDS ORDERED: BENADRYL ONE (22:24)
[2018-08-18 22:31] LABS: INR 0.91 (0.87-1.13)
[2018-08-18 22:32] LABS: Partial Thromboplastin Time 27.9 Sec. (24.2-36.6)
[2018-08-18] MEDS ORDERED: BENADRYL IV ONE (22:34)
[2018-08-18 22:42] LABS: Alanine Aminotransferase 53 units/L (7-56); Albumin 4.1 g/dL (3.9-5); BUN/Creatinine Ratio 16; Blood Urea Nitrogen 11 mg/dL (9-20); Calcium 9.3 mg/dL (8.4-10.2); Hemolysis Index 23
[2018-08-18] MEDS ORDERED: TYLENOL PO PRN (23:17)
[2018-08-18] MEDS ORDERED: SODIUM CHLORIDE FLUSH SYRINGE 10 ML IV PRN (23:17)
[2018-08-18] MEDS ORDERED: HABITROL TD ONE (23:19)
--- NOTE | 2018-08-18 23:19 | History and Physical Report ---
History of Present Illness Date of examination: 08/18/18 History of present illness: 28-year-old man with history of hypertension, seizure, PTSD, hypothyroidism, anxiety, depression being at [place] for suicide ideation was sent to the emergency room for evaluation of seizure. Stated that he is being on chronic clonazepam 2 mg 3 times a day, his dose was changed to 2 mg twice a day. Today he had the seizure generalized tonic-clonic lasting for 5-15 minutes per the patient Review of systems Constitutional: no weight loss, chills, fever Ears, eyes, nose, mouth and throat: no nasal congestion, no nasal discharge, no sinus pressure, no vision change, no red eye. Neck: No neck pain or rigidity. Cardiovascular: no palpitations, chest pain Respiratory: no cough, shortness of breath Gastrointestinal: no hematochezia, abdominal pain Genitourinary : no frequency , no hematuria Musculoskeletal: no joint swelling or muscle ache Integumentary: no rash, no pruritis Neurological: no parathesias, no focal weakness Endocrine: no cold or heat intolerance, no polyuria or polydipsia Hematologic/Lymphatic: no easy bruising, no easy bleeding, no gland swelling Allergic/Immunologic: no urticaria, no angioedema. PAST MEDICAL HISTORY: hypertension, seizure, PTSD, hypothyroidism, anxiety, depression PAST SURGICAL HISTORY: None SOCIAL HISTORY: Denies alcohol, drugs, smoked 2 packs a day FAMILY HISTORY: Hypertension Medications and Allergies Allergies Allergy/AdvReac Type Severity Reaction Status Date / Time No Known Allergies Allergy Verified 04/25/16 10:15 Home Medications Medication Instructions Recorded Confirmed Last Taken Type RX: Nicotine [Habitrol] 21 mg TD Q24H #30 patch 11/17/16 08/18/18 Unknown Rx Multiple Vitamin TAB (Theragran) 1 tab PO DAILY 08/18/18 08/18/18 Unknown History Thiamine 100 mg PO DAILY 08/18/18 08/18/18 Unknown History Gabapentin 600 mg PO BID #10 08/25/18 Unknown Rx Losartan Potassium 100 mg PO DAILY #30 08/25/18 Unknown Rx RX: Levothyroxine [Synthroid] 100 mcg PO QAM #30 tablet 08/25/18 Unknown Rx RX: Venlafaxine HCl [Venlafaxin ER] 150 mg PO QDAY #10 cap.er.24h 08/25/18 Unknown Rx RX: clonazePAM [KlonoPIN] 2 mg PO BID #6 tablet 08/25/18 Unknown Rx SEROquel 200 mg PO HS #10 08/25/18 Unknown Rx levETIRAcetam [Keppra TAB] 750 mg PO BID #60 tablet 08/25/18 Unknown Rx Active Meds: Active Medications Acetaminophen (Tylenol) 650 mg PO Q4H PRN PRN Reason: Pain MILD(1-3)/Fever >100.5/PARR Enoxaparin Sodium (Lovenox) 30 mg SUB-Q QDAY JOAN Ondansetron HCl (Zofran) 4 mg IV Q4H PRN PRN Reason: Nausea And Vomiting Sodium Chloride (Sodium Chloride Flush Syringe 10 Ml) 10 ml IV BID JOAN Sodium Chloride (Sodium Chloride Flush Syringe 10 Ml) 10 ml IV PRN PRN PRN Reason: LINE FLUSH Exam - Physical Exam Narrative exam: General Apperance: The patient lying in bed, breathing comfortable HEENT: Normocephalic, atraumatic. Pupils equally round and reactive to light, EOMI, no sclericterus or JVD or thyromegaly or nodule. , no carotid bruit, mucous membranes moist, no exudate or erythema Heart: S1-S2, regular is rhythm Lungs: Clear to auscultation bilaterally, breathing comfortable Abdomen: Positive bowel sounds, soft, nontender, nondistended, no organomegaly Extremities: No edema cyanosis clubbing Skin: no rash, nodule, warm and dry Neuro: cranial nerves 2-12 intact, speech is fluent, motor/sensory intact - Constitutional Vitals: Temp Pulse Resp BP Pulse Ox 98.6 F 95 H 15 111/75 96 08/18/18 21:48 08/18/18 22:15 08/18/18 22:15 08/18/18 22:15 08/18/18 22:15 Results - Labs CBC & Chem 7: 08/19/18 04:08 08/19/18 04:08 Labs: Abnormal lab results 08/18/18 08/18/18 08/18/18 Range/Units 21:54 21:54 21:54 RDW 12.6 L (13.2-15.2) % [place] % (Auto) 8.1 H (0.0-7.3) % Creatinine 0.7 L (0.8-1.5) mg/dL Total Creatine Kinase 203 H (55-170) units/L Assessment and Plan Assessment Benzodiazepine withdrawal Hypertension Seizure PTSD Hypothyroidism Anxiety Plan Restart scheduled dose of benzodiazepine Continue to monitor, restart outpatient medications DVT prophylaxis, check CT head
[2018-08-18] MEDS ORDERED: HABITROL TD SCH (23:45)
--- NOTE | 2018-08-19 00:23 | Cat Scan Report ---
FINAL REPORT PROCEDURE: CT HEAD/BRAIN WO CON TECHNIQUE: Computerized tomography of the head was performed without contrast material. HISTORY: sz COMPARISON: 11/12/2016 FINDINGS: Skull and scalp: Normal. Paranasal sinuses: Normal. Ventricles and subarachnoid spaces: Normal. Cerebrum: No evidence of hemorrhage, acute infarction or mass . Cerebellum and brainstem: No evidence of hemorrhage, acute infarction or mass. Vasculature: Normal. Comments: None. IMPRESSION: Normal Examination
[2018-08-19 04:24] LABS: Basophils # (Auto) 0.1 K/mm3 (0.0-0.1); Basophils % (Auto) 1.5 % (0.0-1.8); Eosinophils # (Auto) 0.2 K/mm3 (0.0-0.4); Eosinophils % (Auto) 2.4 % (0.0-4.3); Hematocrit 36.3 % (35.5-45.6); Hemoglobin 12.7 gm/dl (11.8-15.2); Lymphocytes # (Auto) 2.5 K/mm3 (1.2-5.4); Mean Corpuscular HGB Conc 35 % (32-34); Mean Corpuscular Volume 88 fl (84-94); Monocytes # (Auto) 0.6 K/mm3 (0.0-0.8); Monocytes % (Auto) 8.2 % (0.0-7.3); Platelet Count 232 K/mm3 (140-440); Red Blood Count 4.14 M/mm3 (3.65-5.03); Red Cell Distribution Width 12.5 % (13.2-15.2)
[2018-08-19 04:40] LABS: BUN/Creatinine Ratio 17; Blood Urea Nitrogen 10 mg/dL (9-20); Calcium 9.3 mg/dL (8.4-10.2); Hemolysis Index 11
[2018-08-19] MEDS: SYNTHROID PO SCH (07:21)
[2018-08-19] MEDS ORDERED: NON-FORMULARY (Thiamine 100 MG) PO SCH (10:00)
[2018-08-19] MEDS ORDERED: MULTIPLE VITAMIN PO SCH (10:00)
[2018-08-19] MEDS ORDERED: NON-FORMULARY (Losartan Potassium 100 MG) PO SCH (10:00)
[2018-08-19] MEDS ORDERED: NON-FORMULARY (Gabapentin 600 MG) PO SCH (10:00)
[2018-08-19] MEDS ORDERED: SUBOXONE SL SCH (10:00)
[2018-08-19] MEDS ORDERED: LOVENOX SUB-Q SCH (10:00)
[2018-08-19] MEDS: LOVENOX SUB-Q SCH (10:40)
[2018-08-19] MEDS: SUBOXONE 2 MG-0.5 MG SL SCH ×3 (10:41→22:16)
[2018-08-19] MEDS: COZAAR PO SCH (10:41)
[2018-08-19] MEDS: EFFEXOR XR PO SCH (10:42)
[2018-08-19] MEDS: NEURONTIN PO SCH ×3 (10:42→22:16)
[2018-08-19] MEDS: VITAMIN B-1 PO SCH (10:43)
[2018-08-19] MEDS: THERAGRAN Tab PO SCH (10:43)
[2018-08-19] MEDS: SODIUM CHLORIDE FLUSH SYRINGE 10 ML IV SCH ×2 (10:43→22:59)
--- NOTE | 2018-08-19 14:41 | Progress Note ---
Assessment and Plan Benzodiazepine withdrawal h/o SI Hypertension Seizure disorder PTSD Hypothyroidism Anxiety Plan Restarted scheduled dose of benzodiazepine Continue to monitor, resumed outpatient medications Consult Psych, on 1012 DVT prophylaxis, unremarkable CT head brief history: 28-year-old history of hypertension, seizure, PTSD, hypothyroidism, anxiety, depression being at [place] for suicide ideation was sent to the emergency room for evaluation of seizure. Subjective Date of service: 08/19/18 Interval history: pt seen and exmained No acute event o/n tolerating diet, no further seizure like activity Objective - Constitutional Vitals: Vital Signs - 12hr 08/19/18 08/19/18 08/19/18 02:50 04:00 05:00 Pulse Rate 79 70 71 Respiratory 10 L 9 L 13 Rate Blood Pressure 129/61 129/61 O2 Sat by Pulse 96 Oximetry 08/19/18 08/19/18 08/19/18 06:50 07:00 07:11 Pulse Rate 62 66 73 Respiratory 12 12 10 L Rate Blood Pressure 129/61 101/44 101/44 O2 Sat by Pulse 97 95 96 Oximetry 08/19/18 08/19/18 08/19/18 07:21 07:31 07:41 Pulse Rate 71 Respiratory 12 10 L Rate Blood Pressure 101/44 106/52 101/44 O2 Sat by Pulse 98 92 97 Oximetry 08/19/18 07:50 Pulse Rate Respiratory Rate Blood Pressure 101/44 O2 Sat by Pulse 92 Oximetry General appearance: Present: no acute distress, well-nourished - EENT Eyes: PERRL, EOM intact ENT: hearing intact, clear oral mucosa Ears: bilateral: normal - Neck Neck: supple, normal ROM - Respiratory Respiratory effort: normal Respiratory: bilateral: CTA - Cardiovascular Rhythm: regular Heart Sounds: Present: S1 & S2. Absent: gallop, rub Extremities: pulses intact, No edema, normal color, Full ROM - Gastrointestinal General gastrointestinal: Present: soft, non-tender, non-distended, normal bowel sounds - Integumentary Integumentary: clear, warm, dry - Musculoskeletal Musculoskeletal: 1, strength equal bilaterally - Neurologic Neurologic: moves all extremities - Psychiatric Psychiatric: memory intact, appropriate mood/affect, intact judgment & insight - Labs CBC & Chem 7: 08/19/18 04:08 08/19/18 04:08 Labs: Abnormal lab results 08/18/18 08/18/1808/18/19 Range/Units 21:54 21:54 21:54 MCHC (32-34) % RDW 12.6 L (13.2-15.2) % Lymph % (Auto) (13.4-35.0) % [place] % (Auto) 8.1 H (0.0-7.3) % Creatinine 0.7 L (0.8-1.5) mg/dL Total Creatine Kinase 203 H (55-170) units/L Salicylates (2.8-20.0) mg/dL Acetaminophen (10.0-30.0) ug/mL 08/18/18 08/18/18 08/19/18 Range/Units 23:28 23:28 04:08 MCHC 35 H (32-34) % RDW 12.5 L (13.2-15.2) % Lymph % (Auto) 36.0 H (13.4-35.0) % [place] % (Auto) 8.2 H (0.0-7.3) % Creatinine (0.8-1.5) mg/dL Total Creatine Kinase (55-170) units/L Salicylates < 0.3 L (2.8-20.0) mg/dL Acetaminophen < 5.0 L (10.0-30.0) ug/mL 08/19/18 Range/Units 04:08 MCHC (32-34) % RDW (13.2-15.2) % Lymph % (Auto) (13.4-35.0) % [place] % (Auto) (0.0-7.3) % Creatinine 0.6 L (0.8-1.5) mg/dL Total Creatine Kinase (55-170) units/L Salicylates (2.8-20.0) mg/dL Acetaminophen (10.0-30.0) ug/mL - Imaging and cardiology CT Scan - head: report reviewed
[2018-08-19] MEDS: ZOFRAN IV PRN (18:05)
[2018-08-19] MEDS: HABITROL TD SCH ×2 (20:13→22:15)
[2018-08-19] MEDS ORDERED: NON-FORMULARY (Seroquel 200 MG) PO SCH (22:00)
[2018-08-20] MEDS: SYNTHROID PO SCH (05:53)
[2018-08-20] MEDS: VITAMIN B-1 PO SCH (11:52)
[2018-08-20] MEDS: NEURONTIN PO SCH ×2 (11:52→21:09)
[2018-08-20] MEDS: EFFEXOR XR PO SCH (11:52)
[2018-08-20] MEDS: THERAGRAN Tab PO SCH (11:52)
[2018-08-20] MEDS: COZAAR PO SCH (11:52)
[2018-08-20] MEDS: LOVENOX SUB-Q SCH (11:53)
[2018-08-20] MEDS: SODIUM CHLORIDE FLUSH SYRINGE 10 ML IV SCH ×2 (11:53→21:09)
[2018-08-20] MEDS: SUBOXONE 2 MG-0.5 MG SL SCH ×2 (11:53→21:08)
--- NOTE | 2018-08-20 15:01 | Progress Note ---
Assessment and Plan Benzodiazepine withdrawal h/o SI Hypertension Seizure disorder PTSD Hypothyroidism Anxiety Plan Restarted scheduled dose of benzodiazepine Continue to monitor, resumed outpatient medications Consult Psych, on 1012 DVT prophylaxis, unremarkable CT head brief history: 28-year-old history of hypertension, seizure, PTSD, hypothyroidism, anxiety, depression being at [place] for suicide ideation was sent to the emergency room for evaluation of seizure. Physical exam: General appearance: Present: no acute distress, well-nourished - EENT Eyes: PERRL, EOM intact ENT: hearing intact, clear oral mucosa Ears: bilateral: normal - Neck Neck: supple, normal ROM - Respiratory Respiratory effort: normal Respiratory: bilateral: CTA - Cardiovascular Rhythm: regular Heart Sounds: Present: S1 & S2. Absent: gallop, rub Extremities: pulses intact, No edema, normal color, Full ROM - Gastrointestinal General gastrointestinal: Present: soft, non-tender, non-distended, normal bowel sounds - Integumentary Integumentary: clear, warm, dry - Musculoskeletal Musculoskeletal: 1, strength equal bilaterally - Neurologic Neurologic: moves all extremities - Psychiatric Psychiatric: memory intact, appropriate mood/affect, intact judgment & insight Subjective Date of service: 08/20/18 Interval history: pt seen and exmained No acute event o/n tolerating diet, no further seizure like activity Objective - Constitutional Vitals: Vital Signs - 12hr 08/20/18 08/20/18 08/20/18 04:04 05:46 07:58 Temperature 97.3 F L 97.3 F L Pulse Rate 88 84 81 Respiratory 16 16 Rate Blood Pressure 122/60 118/61 O2 Sat by Pulse 91 94 Oximetry 08/20/18 12:18 Temperature 97.9 F Pulse Rate 84 Respiratory 16 Rate Blood Pressure 119/76 O2 Sat by Pulse 92 Oximetry - Labs CBC & Chem 7: 08/19/18 04:08 08/19/18 04:08
--- NOTE | 2018-08-20 17:47 | Consultation ---
History of Present Illness - Reason for Consult Consult date: 08/20/18 Reason for consult: psychiatric evaluation - Chief Complaint Chief complaint: "What is the purpose of this?" - History of Present Psychiatric Illness He is homeless and living on the street. He is not considered disabled and is unemployed. He went to [place] reported suicidal ideation and reportedly had a grand mal seizure. He attributes this to klonopin 2mg tid decreased to bid. He also reports his gabapentin dose was recently decreased. He states he needs a new doctor to manage his meds for opioid dependence and depression/anxiety. His nurse reported his mother cannot have him stay with her due to drug use. She reported he abuses klonopin. Mr. Brock denies taking klonopin off [employer]. He is prescribed subutex and methylphenidate every month. According to the [facility] Aware database he has not received a prescription for klonopin since December, and at the time, dose was 1mg. Discussion regarding the concerns with klonopin was met with resistance. He stated he would relapse on heroin and fentanyl if he is taken off klonopin. He talked about going to numerous rehabs, most recently he went to [place] and was taken off meds. He says this caused a relapse and reports routine detox protocols do not work for him. He wants to return to [place] to complete his inpatient psychiatric treatment. He made it clear he wants a prescription for all of his most recent medications. Medications and Allergies Allergies Allergy/AdvReac Type Severity Reaction Status Date / Time No Known Allergies Allergy Verified 04/25/16 10:15 Home Medications Medication Instructions Recorded Confirmed Last Taken Type Levothyroxine [Synthroid] 100 mcg PO QAM 11/11/16 08/18/18 Unknown History Venlafaxine HCl [Venlafaxin ER] 150 mg PO QDAY 11/11/16 08/18/18 Unknown History Suboxone 8 mg-2 mg SL Film 8 mg SL BID 11/14/16 08/18/18 11/11/16 History Nicotine [Habitrol] 21 mg TD Q24H #30 patch 11/17/16 08/18/18 Unknown Rx Clonazepam 2 mg PO BID 08/18/18 08/18/18 Unknown History Gabapentin 600 mg PO BID 08/18/18 08/18/18 Unknown History Losartan Potassium 100 mg PO DAILY 08/18/18 08/18/18 Unknown History Multiple Vitamin TAB (Theragran) 1 tab PO DAILY 08/18/18 08/18/18 Unknown History SEROquel 200 mg PO HS 08/18/18 08/18/18 Unknown History Thiamine 100 mg PO DAILY 08/18/18 08/18/18 Unknown History Claritin 10 mg PO DAILY PRN 08/19/18 08/19/18 Unknown History Clonidine 0.1 mg PO Q8H PRN 08/19/18 08/19/18 Unknown History Cogentin 1 mg PO Q4H PRN 08/19/18 08/19/18 Unknown History Haldol 5 mg IM Q8H PRN 08/19/18 08/19/18 Unknown History Haldol 5 mg PO Q8H PRN 08/19/18 08/19/18 Unknown History Tranxene 15 mg PO Q6H PRN 08/19/18 08/19/18 Unknown History hydrOXYzine 50 mg PO Q8H PRN 08/19/18 08/19/18 Unknown History Active Meds: Active Medications Acetaminophen (Tylenol) 650 mg PO Q4H PRN PRN Reason: Pain MILD(1-3)/Fever >100.5/PARR Last Admin: 08/19/18 18:05 Dose: 650 mg Documented by: Buprenorphine HCl (Suboxone 2 Mg-0.5 Mg) 4 each SL BID [facility] Last Admin: 08/20/18 11:53 Dose: 4 each Documented by: Clonazepam (Klonopin) 2 mg PO TID [facility] Last Admin: 08/20/18 15:42 Dose: 2 mg Documented by: Enoxaparin Sodium (Lovenox) 40 mg SUB-Q QDAY@1000 [facility] Last Admin: 08/20/18 11:53 Dose: 40 mg Documented by: Gabapentin (Neurontin) 600 mg PO BID [facility] Last Admin: 08/20/18 11:52 Dose: 600 mg Documented by: Levothyroxine Sodium (Synthroid) 100 mcg PO QAM@0600 [facility] Last Admin: 08/20/18 05:53 Dose: 100 mcg Documented by: Losartan Potassium (Cozaar) 100 mg PO DAILY [facility] Last Admin: 08/20/18 11:52 Dose: 100 mg Documented by: Multivitamins (Theragran Tab) 1 each PO DAILY [facility] Last Admin: 08/20/18 11:52 Dose: 1 each Documented by: Nicotine (Habitrol) 21 mg TD Q24HR@2200 [facility] Last Admin: 08/19/18 22:15 Dose: Not Given Documented by: Ondansetron HCl (Zofran) 4 mg IV Q4H PRN PRN Reason: Nausea And Vomiting Last Admin: 08/19/18 18:05 Dose: 4 mg Documented by: Quetiapine Fumarate (Seroquel) 200 mg PO QHS [facility] Last Admin: 08/19/18 22:59 Dose: 200 mg Documented by: Sodium Chloride (Sodium Chloride Flush Syringe 10 Ml) 10 ml IV BID [facility] Last Admin: 08/20/18 11:53 Dose: 10 ml Documented by: Sodium Chloride (Sodium Chloride Flush Syringe 10 Ml) 10 ml IV PRN PRN PRN Reason: LINE FLUSH Thiamine HCl (Vitamin B-1) 100 mg PO DAILY [facility] Last Admin: 08/20/18 11:52 Dose: 100 mg Documented by: Venlafaxine HCl (Effexor Xr) 150 mg PO QDAY [facility] Last Admin: 08/20/18 11:52 Dose: 150 mg Documented by: Past psychiatric history - past Psychiatric treatment and history Psych: Anxiety, Addictions, Depression - Social History Social history: prescription drug abuse, other (homeless and on streets) Mental Status Exam - Vital signs Last Vital Signs Temp 98.3 F 08/20/18 16:59 Pulse 86 08/20/18 16:59 Resp 16 08/20/18 16:59 BP 117/77 08/20/18 16:59 Pulse Ox 94 08/20/18 16:59 - Exam Orientation: time, place, person Affect: agitated Mood: congruent with affect Thought content: other (SI. No HI) Thought Process: Loose Associations Perceptions: none Speech: normal rate and pattern Concentration: focused Motor activity: other (slow) Level of consciousness: alert Memory: Intact Interaction: defensive Results Result Diagrams: 08/19/18 04:08 08/19/18 04:08 All other labs normal. Assessment and Plan Assessment and plan: Impression: He reports vague suicidal ideation and when discussing taper of controlled medications, he makes statements that he will use heroin or fentanyl and may . Diversion of stimulant is likely. Available UDS does not detect buprenorphine. He does not have a recent klonopin prescription and denies having it filled in another state. If he is taking more klonopin than prescribed, a dose of 2mg bid could have precipitated a withdrawal seizure. opioid use disorder, continuous use-cannot rule out diversion major depressive disorder anxiety disorder, unspecified Recommendations: Continue effexor xr 150mg qam for depression A medically supervised detox from benzos is recommended or at least taper the dose. Opioids and benzodiazepines are not recommended to be taken concurrently due to risk of respiratory depression, falls, cognitive effects. Tolerance and dependence discussed. Dispo-Continue 1013 and transfer to inpatient psychiatric facility when medically cleared. Staffed with Dr. Hollis Tello
[2018-08-20] MEDS: HABITROL TD SCH (21:09)
[2018-08-20] MEDS: ZOFRAN IV PRN (22:02)
[2018-08-21] MEDS: SYNTHROID PO SCH (05:56)
[2018-08-21] MEDS ORDERED: ATIVAN IV PRN (10:57)
[2018-08-21] MEDS ORDERED: REQUIP PO PRN (10:57)
[2018-08-21] MEDS ORDERED: BENTYL PO PRN (10:57)
[2018-08-21] MEDS ORDERED: ROBAXIN PO PRN (10:57)
--- NOTE | 2018-08-21 11:04 | Progress Note ---
Assessment and Plan Benzodiazepine withdrawal ? h/o SI Hypertension Seizure disorder Hypothyroidism opioid use disorder, continuous use-cannot rule out diversion Major depressive disorder anxiety disorder, unspecified PTSD Plan Restarted scheduled dose of benzodiazepine, now changing to BID Continue to monitor, resumed outpatient medications Consult Psych, on 1012 DVT prophylaxis, unremarkable CT head medically cleared for discharge patient does not want to be detoxed for benzo and stated very clearly that he will start taking heroine if he is not prescribed benzo brief history: 28-year-old history of hypertension, seizure, PTSD, hypothyroidism, anxiety, depression being at [place] for suicide ideation was sent to the emergency room for evaluation of seizure. Physical exam: General appearance: Present: no acute distress, well-nourished - EENT Eyes: PERRL, EOM intact ENT: hearing intact, clear oral mucosa Ears: bilateral: normal - Neck Neck: supple, normal ROM - Respiratory Respiratory effort: normal Respiratory: bilateral: CTA - Cardiovascular Rhythm: regular Heart Sounds: Present: S1 & S2. Absent: gallop, rub Extremities: pulses intact, No edema, normal color, Full ROM - Gastrointestinal General gastrointestinal: Present: soft, non-tender, non-distended, normal bowel sounds - Integumentary Integumentary: clear, warm, dry - Musculoskeletal Musculoskeletal: 1, strength equal bilaterally - Neurologic Neurologic: moves all extremities - Psychiatric Psychiatric: memory intact, appropriate mood/affect, intact judgment & insight Subjective Date of service: 08/21/18 Interval history: pt seen and exmained No acute event o/n tolerating diet, no further seizure like activity does not want to be detox for benzo Objective - Constitutional Vitals: Vital Signs - 12hr 08/21/18 10:00 O2 Sat by Pulse 95 Oximetry - Labs CBC & Chem 7: 08/19/18 04:08 08/19/18 04:08
[2018-08-21] MEDS: SUBOXONE 2 MG-0.5 MG SL SCH ×2 (12:47→19:54)
[2018-08-21] MEDS: THERAGRAN Tab PO SCH (12:48)
[2018-08-21] MEDS: EFFEXOR XR PO SCH (12:48)
[2018-08-21] MEDS: VITAMIN B-1 PO SCH (12:48)
[2018-08-21] MEDS: COZAAR PO SCH (12:49)
[2018-08-21] MEDS: SODIUM CHLORIDE FLUSH SYRINGE 10 ML IV SCH ×2 (12:50→21:56)
[2018-08-21] MEDS: NEURONTIN PO SCH ×2 (12:50→21:55)
[2018-08-21] MEDS: LOVENOX SUB-Q SCH (12:51)
--- NOTE | 2018-08-21 18:25 | Progress Note ---
Subjective - Reason for Consult Consult date: 08/21/18 Reason for consult: follow up - Chief Complaint Chief complaint: sleeping From initial consult: He is homeless and living on the street. He is not considered disabled and is unemployed. He went to [place] reported suicidal ideation and reportedly had a grand mal seizure. He attributes this to klonopin 2mg tid decreased to bid. He also reports his gabapentin dose was recently decreased. He states he needs a new doctor to manage his meds for opioid dependence and depression/anxiety. His nurse reported his mother cannot have him stay with her due to drug use. She reported he abuses klonopin. Mr. Brock denies taking klonopin off the street. He is prescribed subutex and methylphenidate every month. According to the [facility] Aware database he has not received a prescription for klonopin since December, and at the time, dose was 1mg. Discussion regarding the concerns with klonopin was met with resistance. He stated he would relapse on heroin and fentanyl if he is taken off klonopin. He talked about going to numerous rehabs, most recently he went to [place] and was taken off meds. He says this caused a relapse and reports routine detox protocols do not work for him. He wants to return to [place] to complete his inpatient psychiatric treatment. He made it clear he wants a prescription for all of his most recent medications. Mental Status Exam - Vital signs Last Vital Signs Temp 98.3 F 08/21/18 17:48 Pulse 102 H 08/21/18 17:48 Resp 16 08/21/18 17:48 BP 124/73 08/21/18 17:48 Pulse Ox 95 08/21/18 17:48 - Exam Narrative exam: unable to assess Assessment and Plan Impression: He reports vague suicidal ideation and when discussing taper of controlled medications, he makes statements that he will use heroin or fentanyl and may . Diversion of stimulant is likely. Available UDS does not detect buprenorphine. He does not have a recent klonopin prescription and denies having it filled in another state. If he is taking more klonopin than prescribed, a dose of 2mg bid could have precipitated a withdrawal seizure. opioid use disorder, continuous use-cannot rule out diversion major depressive disorder anxiety disorder, unspecified Recommendations: Continue effexor xr 150mg qam for depression A medically supervised detox from benzos is recommended or at least taper the dose. Opioids and benzodiazepines are not recommended to be taken concurrently due to risk of respiratory depression, falls, cognitive effects. Tolerance and dependence discussed. Dispo-Continue 1013 and transfer to inpatient psychiatric facility when medically cleared. Staffed with Dr. Hollis Tello
[2018-08-21] MEDS: HABITROL TD SCH (21:56)
[2018-08-21] MEDS: MILK OF MAGNESIA PO PRN (22:04)
[2018-08-21] MEDS: ZOFRAN IV PRN (23:56)
[2018-08-22] MEDS: SYNTHROID PO SCH (06:07)
[2018-08-22] MEDS: SUBOXONE 2 MG-0.5 MG SL SCH ×2 (08:38→22:17)
[2018-08-22] MEDS: NEURONTIN PO SCH ×2 (09:13→21:18)
[2018-08-22] MEDS: EFFEXOR XR PO SCH (09:14)
[2018-08-22] MEDS: VITAMIN B-1 PO SCH (09:14)
[2018-08-22] MEDS: COZAAR PO SCH (09:14)
[2018-08-22] MEDS: LOVENOX SUB-Q SCH (09:14)
[2018-08-22] MEDS: THERAGRAN Tab PO SCH (09:14)
[2018-08-22] MEDS: SODIUM CHLORIDE FLUSH SYRINGE 10 ML IV SCH ×2 (09:21→21:20)
--- NOTE | 2018-08-22 11:54 | Progress Note ---
Subjective - Reason for Consult Consult date: 08/22/18 Reason for consult: Psychiatry Follow-up - Chief Complaint Chief complaint: "I am better" 28-year-old white male presented with a chief complaint of seizure. Today the patient is calm and cooperative during the assessment. He stated that he is feeling better "mentally." He stated that he would like to continue with Suboxone. He stated that he plan to move back home with is mother once discharged. He stated that he was stressed prior to his admission to [facility]. He denies SI/HI's and AVH's. He denies any side effects of his medications. Mental Status Exam - Vital signs Last Vital Signs Temp 98.2 F 08/22/18 11:37 Pulse 52 L 08/22/18 11:37 Resp 18 08/22/18 11:37 BP 109/51 08/22/18 11:37 Pulse Ox 93 08/22/18 11:37 - Exam Narrative exam: MSE: Appearance: calm, cooperative Behavior: regular eye contact Speech: regular rate and tone Mood: "okay" Affect: congruent to mood Thought Process: circumstantial Thought Content: denies SI/HI's and AVH's Motor Activity: ambulatory Cognition: A/O x3 Insight: fair Judgment: fair Assessment and Plan Impression: Hx of Depression/Anxiety DO. Opioid Use DO. Today the patient is calm and cooperative during the assessment. Recommendation/Plan: Reevaluate 1013 in 24 hours. Continue home Effexor 150 mg PO, Seoquel 200 mg PO HS, and Klonopin 2 mg PO BID. Discussed possible suicidality/medication induced derik with the patient reference Effexor. A [facility] supervised detox from benzos is recommended or at least taper the dose. Opioids and Benzodiazepines are not recommended to be taken concurrently due to risk of respiratory depression, falls, cognitive effects. Tolerance and dependence discussed. Dispo: If the patient's 1013 is rescinded, he can follow up with [facility] for outpatient psy services. Staffed with Dr Aidan Tello.
[2018-08-22] MEDS ORDERED: ATIVAN ONE ×2 (13:48→13:55)
[2018-08-22] MEDS ORDERED: ATIVAN IV ONE (13:54)
[2018-08-22] MEDS ORDERED: ATIVAN IV PRN (13:54)
[2018-08-22] MEDS ORDERED: KEPPRA 1,500 MG in D5W 100 ML IV SCH (14:00)
--- NOTE | 2018-08-22 14:27 | Progress Note ---
Assessment and Plan Benzodiazepine withdrawal ? - suspect pseudoseizure - will order EEG h/o SI Hypertension Seizure disorder Hypothyroidism opioid use disorder, continuous use-cannot rule out diversion Major depressive disorder anxiety disorder, unspecified PTSD Plan unremarkable CT head Restarted scheduled dose of benzodiazepine, now changed to BID Continue to monitor, resumed outpatient medications Consulted Psych, on 1012 patient stated that he does not want to be detoxed for benzo and stated very clearly that he will start taking heroine if he is not prescribed benzo. doubt his seizure episodes as pseudoseizure as he doesnot want to get weaned off from klonopine. DVT prophylaxis, brief history: 28-year-old history of hypertension, seizure, PTSD, hypothyroidism, anxiety, depression being at [place] for suicide ideation was sent to the emergency room for evaluation of seizure. Physical exam: General appearance: Present: no acute distress, well-nourished - EENT Eyes: PERRL, EOM intact ENT: hearing intact, clear oral mucosa Ears: bilateral: normal - Neck Neck: supple, normal ROM - Respiratory Respiratory effort: normal Respiratory: bilateral: CTA - Cardiovascular Rhythm: regular Heart Sounds: Present: S1 & S2. Absent: gallop, rub Extremities: pulses intact, No edema, normal color, Full ROM - Gastrointestinal General gastrointestinal: Present: soft, non-tender, non-distended, normal bowel sounds - Integumentary Integumentary: clear, warm, dry - Musculoskeletal Musculoskeletal: 1, strength equal bilaterally - Neurologic Neurologic: moves all extremities - Psychiatric Psychiatric: memory intact, appropriate mood/affect, intact judgment & insight Subjective Date of service: 08/22/18 Interval history: pt seen and exmained No acute event o/n tolerating diet, had episode of seizure like activity this afternoon - suspect pseudoseizure , no postictal state following the episode Objective - Constitutional Vitals: Vital Signs - 12hr 08/22/18 08/22/18 08/22/18 04:46 08:13 10:00 Temperature 97.8 F Pulse Rate 78 79 82 Respiratory 20 18 18 Rate Respiratory 18 Rate [Left Arm] Blood Pressure 101/48 100/55 O2 Sat by Pulse 90 91 98 Oximetry 08/22/18 11:37 Temperature 98.2 F Pulse Rate 52 L Respiratory 18 Rate Respiratory Rate [Left Arm] Blood Pressure 109/51 O2 Sat by Pulse 93 Oximetry - Labs CBC & Chem 7: 08/19/18 04:08 08/19/18 04:08
--- NOTE | 2018-08-22 16:23 | Progress Note ---
Subjective Date of service: 08/22/18 Interval history: hx of benzo OD suspect self harm ie suicide will monitor for seizures and check EEG Objective - Vital Sign Vital Signs - 12hr 08/22/18 08/22/18 08/22/18 04:46 08:13 10:00 Temperature 97.8 F Pulse Rate 78 79 82 Respiratory 20 18 18 Rate Respiratory 18 Rate [Left Arm] Blood Pressure 101/48 100/55 O2 Sat by Pulse 90 91 98 Oximetry 08/22/18 11:37 Temperature 98.2 F Pulse Rate 52 L Respiratory 18 Rate Respiratory Rate [Left Arm] Blood Pressure 109/51 O2 Sat by Pulse 93 Oximetry - Laboratory Findings CBC and BMP: 08/19/18 04:08 08/19/18 04:08 Abnormal Lab Findings: Abnormal Labs 08/18/18 08/18/18 08/18/18 21:54 21:54 21:54 MCHC RDW 12.6 L Lymph % (Auto) [place] % (Auto) 8.1 H Creatinine 0.7 L Total Creatine Kinase 203 H Salicylates Acetaminophen 08/18/18 08/18/18 08/19/18 23:28 23:28 04:08 MCHC 35 H RDW 12.5 L Lymph % (Auto) 36.0 H [place] % (Auto) 8.2 H Creatinine Total Creatine Kinase Salicylates < 0.3 L Acetaminophen < 5.0 L 08/19/18 04:08 MCHC RDW Lymph % (Auto) [place] % (Auto) Creatinine 0.6 L Total Creatine Kinase Salicylates Acetaminophen
[2018-08-22] MEDS ORDERED: GEODON IM STA (16:59)
[2018-08-22] MEDS: HABITROL TD SCH (21:15)
[2018-08-23] MEDS: SYNTHROID PO SCH (06:08)
[2018-08-23] MEDS: KEPPRA 1,500 MG in D5W 100 ML IV SCH ×2 (06:12→18:01)
[2018-08-23] MEDS: SUBOXONE 2 MG-0.5 MG SL SCH ×2 (08:28→22:50)
[2018-08-23] MEDS: COZAAR PO SCH (09:21)
[2018-08-23] MEDS: THERAGRAN Tab PO SCH (09:22)
[2018-08-23] MEDS: NEURONTIN PO SCH ×2 (09:22→21:12)
[2018-08-23] MEDS: LOVENOX SUB-Q SCH (09:22)
[2018-08-23] MEDS: SODIUM CHLORIDE FLUSH SYRINGE 10 ML IV SCH ×2 (09:23→21:14)
[2018-08-23] MEDS: VITAMIN B-1 PO SCH (09:25)
--- NOTE | 2018-08-23 11:40 | Event Note ---
Date: 08/22/18 patient had multiple episodes of seizure like activities mainly muscle shacking. Patient shakes legs and whole body without any changes on the tele monitor. Code MET called twice for seizure activity. Responsive to name and to touch during the episode and requesting for Ativan or versed during those episodes. Patient able to hold arm up on his own when lifted. Patient refused Geodon stating that "Versed works good for me to stop the seizures". requesting klonopine. Patient to be transferred to [facility] for closer observation.
[2018-08-23] MEDS ORDERED: LIBRIUM PO SCH (12:00)
--- NOTE | 2018-08-23 13:00 | Progress Note ---
Subjective Date of service: 08/23/18 Interval history: orders placed for urgent MRI of the brain and EEG will leave note Objective - Vital Sign Vital Signs - 12hr 08/23/18 08/23/18 08/23/18 01:00 01:10 01:20 Temperature Pulse Rate 82 83 81 Pulse Rate [ Apical] Respiratory 10 L 11 L 10 L Rate Blood Pressure 111/48 117/62 117/62 O2 Sat by Pulse 92 93 94 Oximetry 08/23/18 08/23/18 08/23/18 01:30 01:40 01:50 Temperature Pulse Rate 81 80 80 Pulse Rate [ Apical] Respiratory 8 L 7 L 10 L Rate Blood Pressure 117/62 117/62 117/62 O2 Sat by Pulse 93 93 94 Oximetry 08/23/18 08/23/18 08/23/18 02:00 02:10 02:20 Temperature Pulse Rate 81 83 82 Pulse Rate [ Apical] Respiratory 10 L 10 L 11 L Rate Blood Pressure 104/65 104/65 104/65 O2 Sat by Pulse 92 92 92 Oximetry 08/23/18 08/23/18 08/23/18 02:30 02:40 02:50 Temperature Pulse Rate 82 83 84 Pulse Rate [ Apical] Respiratory 9 L 9 L 10 L Rate Blood Pressure 104/65 104/65 104/65 O2 Sat by Pulse 92 93 92 Oximetry 08/23/18 08/23/18 08/23/18 03:00 03:10 03:20 Temperature Pulse Rate 93 H 81 80 Pulse Rate [ Apical] Respiratory 8 L 10 L 9 L Rate Blood Pressure 104/65 141/66 141/66 O2 Sat by Pulse 96 92 93 Oximetry 08/23/18 08/23/18 08/23/18 03:30 03:40 03:50 Temperature Pulse Rate 82 81 82 Pulse Rate [ Apical] Respiratory 9 L 10 L 10 L Rate Blood Pressure 141/66 141/66 141/66 O2 Sat by Pulse 92 92 93 Oximetry 08/23/18 08/23/18 08/23/18 04:00 04:10 04:20 Temperature 98.4 F Pulse Rate 77 80 81 Pulse Rate [ 80 Apical] Respiratory 10 L 9 L 8 L Rate Blood Pressure 95/55 95/55 141/66 O2 Sat by Pulse 92 94 93 Oximetry 08/23/18 08/23/18 08/23/18 04:30 04:40 04:50 Temperature Pulse Rate 77 80 78 Pulse Rate [ Apical] Respiratory 10 L 8 L 12 Rate Blood Pressure 141/66 141/66 141/66 O2 Sat by Pulse 93 94 94 Oximetry 08/23/18 08/23/18 08/23/18 05:00 05:10 05:20 Temperature Pulse Rate 77 83 79 Pulse Rate [ Apical] Respiratory 11 L 10 L 10 L Rate Blood Pressure 95/55 96/65 O2 Sat by Pulse 92 92 91 Oximetry 08/23/18 08/23/18 08/23/18 05:30 05:40 05:50 Temperature Pulse Rate 80 76 78 Pulse Rate [ Apical] Respiratory 8 L 15 10 L Rate Blood Pressure 96/65 96/65 96/65 O2 Sat by Pulse 92 91 90 Oximetry 08/23/18 08/23/18 08/23/18 06:00 06:10 06:24 Temperature Pulse Rate 73 99 H 94 H Pulse Rate [ Apical] Respiratory 9 L 15 13 Rate Blood Pressure 118/61 118/61 118/61 O2 Sat by Pulse 93 95 Oximetry 08/23/18 08/23/18 08/23/18 06:30 06:40 06:50 Temperature Pulse Rate 76 83 74 Pulse Rate [ Apical] Respiratory 7 L 11 L 11 L Rate Blood Pressure 118/61 118/61 118/61 O2 Sat by Pulse 96 97 96 Oximetry 08/23/18 08/23/18 08/23/18 07:00 07:10 07:20 Temperature Pulse Rate 85 79 75 Pulse Rate [ Apical] Respiratory 6 L 8 L 11 L Rate Blood Pressure 118/61 118/61 107/63 O2 Sat by Pulse 96 98 96 Oximetry 08/23/18 08/23/18 08/23/18 07:30 07:40 07:50 Temperature Pulse Rate 78 81 77 Pulse Rate [ Apical] Respiratory 6 L 8 L 9 L Rate Blood Pressure 107/63 107/63 107/63 O2 Sat by Pulse 97 98 97 Oximetry 08/23/18 08/23/18 08/23/18 08:00 08:10 08:20 Temperature 98.4 F Pulse Rate 91 H 81 83 Pulse Rate [ 86 Apical] Respiratory 12 13 10 L Rate Blood Pressure 107/63 107/63 107/63 O2 Sat by Pulse 98 97 98 Oximetry 08/23/18 08/23/18 08/23/18 08:30 09:21 12:00 Temperature 98.5 F Pulse Rate 87 92 H Pulse Rate [ Apical] Respiratory 10 L Rate Blood Pressure 107/63 120/58 O2 Sat by Pulse 96 Oximetry - Laboratory Findings CBC and BMP: 08/19/18 04:08 08/19/18 04:08 Abnormal Lab Findings: Abnormal Labs 08/18/18 08/18/18 08/18/18 21:54 21:54 21:54 MCHC RDW 12.6 L Lymph % (Auto) [place] % (Auto) 8.1 H Creatinine 0.7 L Total Creatine Kinase 203 H Salicylates Acetaminophen 08/18/18 08/18/18 08/19/18 23:28 23:28 04:08 MCHC 35 H RDW 12.5 L Lymph % (Auto) 36.0 H [place] % (Auto) 8.2 H Creatinine Total Creatine Kinase Salicylates < 0.3 L Acetaminophen < 5.0 L 08/19/18 04:08 MCHC RDW Lymph % (Auto) [place] % (Auto) Creatinine 0.6 L Total Creatine Kinase Salicylates Acetaminophen
[2018-08-23] MEDS: ZOFRAN IV PRN (13:03)
[2018-08-23] MEDS: EFFEXOR XR PO SCH (13:59)
--- NOTE | 2018-08-23 14:54 | Progress Note ---
Subjective - Reason for Consult Consult date: 08/23/18 Reason for consult: Psychiatry Follow-up - Chief Complaint Chief complaint: "I am better" 28-year-old white male presented with a chief complaint of seizure. Today the patient is calm and cooperative during the assessment. His presentation is different from yesterday. His affect is flat with poor eye contact. He was asked about how he was feeling, he stated, "I'm not sure." He took several seconds to acknowledge not being suicidal when asked. He stated that he would like to move back home with his mother. He denies SI/HI's and AVH's. He denies any side effects of his medications. Mental Status Exam - Vital signs Last Vital Signs Temp 98.4 F 08/23/18 12:00 Pulse 111 H 08/23/18 13:00 Resp 21 08/23/18 13:00 BP 103/47 08/23/18 13:00 Pulse Ox 95 08/23/18 12:50 - Exam Narrative exam: MSE: Appearance: calm, cooperative Behavior: regular eye contact Speech: regular rate and tone Mood: "okay" Affect: congruent to mood Thought Process: circumstantial Thought Content: denies HI's and AVH's Motor Activity: ambulatory Cognition: A/O x3 Insight: fair Judgment: fair Assessment and Plan Impression: Hx of Depression/Anxiety DO. Opioid Use DO. Today the patient is calm and cooperative during the assessment. Recommendation/Plan: Continue 1013 and gather collateral information. Continue home Effexor 150 mg PO, Seoquel 200 mg PO HS, and Klonopin 2 mg PO BID. Discussed possible suicidality/medication induced derik with the patient reference Effexor. A medically supervised detox from benzos is recommended or at least taper the dose. Opioids and Benzodiazepines are not recommended to be taken concurrently due to risk of respiratory depression, falls, cognitive effects. Tolerance and dependence discussed. . Dispo: Once collateral information is gathered, proper dispo will be determined. Will staff with Dr Kiley Tello.
--- NOTE | 2018-08-23 15:19 | Progress Note ---
Assessment and Plan Benzodiazepine withdrawal ? - suspect pseudoseizure - will WAIT FOR EEG h/o SI Hypertension Seizure disorder Hypothyroidism Opioid use disorder, continuous use-cannot rule out diversion Major depressive disorder anxiety disorder, unspecified PTSD Plan unremarkable CT head Continue home Effexor 150 mg PO, Seoquel 200 mg PO HS, and Klonopin 2 mg PO BID. Consulted Psych, on 101 patient stated that he does not want to be detoxed for benzo and stated very clearly that he will start taking heroine if he is not prescribed benzo. doubt h is seizure episodes as pseudoseizure as he doesnot want to get weaned off from klonopine. Started on Keppra, neurology following DVT prophylaxis brief history: 28-year-old history of hypertension, seizure, PTSD, hypothyroidism, anxiety, depression being at [place] for suicide ideation was sent to the emergency room for evaluation of seizure. Physical exam: General appearance: Present: no acute distress, well-nourished - EENT Eyes: PERRL, EOM intact ENT: hearing intact, clear oral mucosa Ears: bilateral: normal - Neck Neck: supple, normal ROM - Respiratory Respiratory effort: normal Respiratory: bilateral: CTA - Cardiovascular Rhythm: regular Heart Sounds: Present: S1 & S2. Absent: gallop, rub Extremities: pulses intact, No edema, normal color, Full ROM - Gastrointestinal General gastrointestinal: Present: soft, non-tender, non-distended, normal bowel sounds - Integumentary Integumentary: clear, warm, dry - Musculoskeletal Musculoskeletal: 1, strength equal bilaterally - Neurologic Neurologic: moves all extremities - Psychiatric Psychiatric: memory intact, appropriate mood/affect, intact judgment & insight Subjective Date of service: 08/23/18 Interval history: pt seen and exmained No acute event o/n tolerating diet, frequently requesting for ativan stating he is going to have seizure/PTSD attack Objective - Constitutional Vitals: Vital Signs - 12hr 08/23/18 08/23/18 08/23/18 03:20 03:30 03:40 Temperature Pulse Rate 80 82 81 Pulse Rate [ Apical] Respiratory 9 L 9 L 10 L Rate Blood Pressure 141/66 141/66 141/66 O2 Sat by Pulse 93 92 92 Oximetry 08/23/18 08/23/18 08/23/18 03:50 04:00 04:10 Temperature 98.4 F Pulse Rate 82 77 80 Pulse Rate [ 80 Apical] Respiratory 10 L 10 L 9 L Rate Blood Pressure 141/66 95/55 95/55 O2 Sat by Pulse 93 92 94 Oximetry 08/23/18 08/23/18 08/23/18 04:20 04:30 04:40 Temperature Pulse Rate 81 77 80 Pulse Rate [ Apical] Respiratory 8 L 10 L 8 L Rate Blood Pressure 141/66 141/66 141/66 O2 Sat by Pulse 93 93 94 Oximetry 08/23/18 08/23/18 08/23/18 04:50 05:00 05:10 Temperature Pulse Rate 78 77 83 Pulse Rate [ Apical] Respiratory 12 11 L 10 L Rate Blood Pressure 141/66 95/55 O2 Sat by Pulse 94 92 92 Oximetry 08/23/18 08/23/18 08/23/18 05:20 05:30 05:40 Temperature Pulse Rate 79 80 76 Pulse Rate [ Apical] Respiratory 10 L 8 L 15 Rate Blood Pressure 96/65 96/65 96/65 O2 Sat by Pulse 91 92 91 Oximetry 08/23/18 08/23/18 08/23/18 05:50 06:00 06:10 Temperature Pulse Rate 78 73 99 H Pulse Rate [ Apical] Respiratory 10 L 9 L 15 Rate Blood Pressure 96/65 118/61 118/61 O2 Sat by Pulse 90 93 95 Oximetry 08/23/18 08/23/18 08/23/18 06:24 06:30 06:40 Temperature Pulse Rate 94 H 76 83 Pulse Rate [ Apical] Respiratory 13 7 L 11 L Rate Blood Pressure 118/61 118/61 118/61 O2 Sat by Pulse 96 97 Oximetry 08/23/18 08/23/18 08/23/18 06:50 07:00 07:10 Temperature Pulse Rate 74 85 79 Pulse Rate [ Apical] Respiratory 11 L 6 L 8 L Rate Blood Pressure 118/61 118/61 118/61 O2 Sat by Pulse 96 96 98 Oximetry 08/23/18 08/23/18 08/23/18 07:20 07:30 07:40 Temperature Pulse Rate 75 78 81 Pulse Rate [ Apical] Respiratory 11 L 6 L 8 L Rate Blood Pressure 107/63 107/63 107/63 O2 Sat by Pulse 96 97 98 Oximetry 08/23/18 08/23/18 08/23/18 07:50 08:00 08:10 Temperature 98.4 F Pulse Rate 77 91 H 81 Pulse Rate [ 86 Apical] Respiratory 9 L 12 13 Rate Blood Pressure 107/63 107/63 107/63 O2 Sat by Pulse 97 98 97 Oximetry 08/23/18 08/23/18 08/23/18 08:20 08:30 08:40 Temperature Pulse Rate 83 87 83 Pulse Rate [ Apical] Respiratory 10 L 10 L 10 L Rate Blood Pressure 107/63 107/63 107/63 O2 Sat by Pulse 98 96 95 Oximetry 08/23/18 08/23/18 08/23/18 08:50 09:00 09:10 Temperature Pulse Rate 89 94 H 91 H Pulse Rate [ Apical] Respiratory 12 13 10 L Rate Blood Pressure 107/63 120/58 120/58 O2 Sat by Pulse 97 98 97 Oximetry 08/23/18 08/23/18 08/23/18 09:20 09:21 09:30 Temperature Pulse Rate 96 H 92 H 87 Pulse Rate [ Apical] Respiratory 11 L 11 L Rate Blood Pressure 120/58 120/58 120/58 O2 Sat by Pulse 97 98 Oximetry 08/23/18 08/23/18 08/23/18 09:40 09:50 10:00 Temperature Pulse Rate 92 H 89 87 Pulse Rate [ Apical] Respiratory 11 L 9 L 9 L Rate Blood Pressure 120/58 120/58 122/61 O2 Sat by Pulse 97 96 91 Oximetry 08/23/18 08/23/18 08/23/18 10:10 10:20 10:30 Temperature Pulse Rate 89 88 87 Pulse Rate [ Apical] Respiratory 9 L 8 L 7 L Rate Blood Pressure 122/61 122/61 122/61 O2 Sat by Pulse 90 91 93 Oximetry 08/23/18 08/23/18 08/23/18 10:40 10:50 11:11 Temperature Pulse Rate 90 89 Pulse Rate [ Apical] Respiratory 10 L 9 L Rate Blood Pressure 122/61 122/61 122/61 O2 Sat by Pulse 97 97 79 L Oximetry 08/23/18 08/23/18 08/23/18 11:20 11:30 11:40 Temperature Pulse Rate 91 H 87 91 H Pulse Rate [ Apical] Respiratory 11 L 9 L 10 L Rate Blood Pressure 122/61 122/61 122/61 O2 Sat by Pulse 95 94 93 Oximetry 08/23/18 08/23/18 08/23/18 11:50 12:00 12:10 Temperature 98.4 F Pulse Rate 81 89 85 Pulse Rate [ 90 Apical] Respiratory 9 L 8 L 9 L Rate Blood Pressure 122/61 122/61 103/47 O2 Sat by Pulse 93 95 96 Oximetry 08/23/18 08/23/18 08/23/18 12:20 12:30 12:40 Temperature Pulse Rate 93 H 94 H 91 H Pulse Rate [ Apical] Respiratory 10 L 11 L 13 Rate Blood Pressure 103/47 103/47 103/47 O2 Sat by Pulse Oximetry 08/23/18 08/23/18 12:50 13:00 Temperature Pulse Rate 96 H 111 H Pulse Rate [ Apical] Respiratory 10 L 21 Rate Blood Pressure 103/47 103/47 O2 Sat by Pulse 95 Oximetry - Labs CBC & Chem 7: 08/19/18 04:08 08/19/18 04:08
[2018-08-23] MEDS: ATIVAN IV PRN (17:07)
--- NOTE | 2018-08-23 17:33 | Magnetic Resonance Report ---
FINAL REPORT EXAM: MRI BRAIN WO CONTRAST HISTORY: elevated LFTs, jaundice TECHNIQUE: MRI brain without contrast PRIORS: None. FINDINGS: There is normal signal throughout the brain parenchyma. No evidence for brain edema pattern or mass e ffect. Ventricles and sulci are within normal limits. No evidence for acute intra-axial or extra-axia l hemorrhage. No evidence for acute restriction on diffusion-weighted study. Brainstem and posterior fossa structur es are unremarkable. IMPRESSION: Negative. No focal abnormality identified
[2018-08-23] MEDS: HABITROL TD SCH (21:10)
[2018-08-24] MEDS: ATIVAN IV PRN ×3 (04:45→17:44)
[2018-08-24] MEDS: KEPPRA 1,500 MG in D5W 100 ML IV SCH (06:41)
[2018-08-24] MEDS: SYNTHROID PO SCH (06:41)
[2018-08-24] MEDS: NEURONTIN PO SCH ×2 (09:00→22:00)
[2018-08-24] MEDS: VITAMIN B-1 PO SCH (09:07)
[2018-08-24] MEDS: LOVENOX SUB-Q SCH (09:07)
[2018-08-24] MEDS: EFFEXOR XR PO SCH (09:08)
[2018-08-24] MEDS: THERAGRAN Tab PO SCH (09:08)
[2018-08-24] MEDS: COZAAR PO SCH (09:09)
[2018-08-24] MEDS: SODIUM CHLORIDE FLUSH SYRINGE 10 ML IV SCH ×2 (09:10→22:01)
[2018-08-24] MEDS: SUBOXONE 2 MG-0.5 MG SL SCH ×2 (09:14→20:28)
--- NOTE | 2018-08-24 13:56 | Progress Note ---
Subjective - Reason for Consult Consult date: 08/24/18 Reason for consult: Psychiatric Follow-up Evaluation - Chief Complaint Chief complaint: "Terrible" Patient is a 28-year-old white male presented with a chief complaint of seizure. Patient is seen on the medical floor for a psychiatric follow-up evaluation. Today the patient is calm and cooperative during the assessment. His affect is flat with poor eye contact. At times patient is guarded and evasive. He states " I feel terrible because of PTSD." He endorse flashbacks and intermittent psychosis of AH's " no specific commands" and paranoid delusions" everyone is laughing at me". He denies SI/HI's and AVH's. He reports appropriate sleep and appetite. Patient reports medication compliance. He denies any side effects of his medications. Appears to be medication seeking. Patient is requesting increase in Klonopin frequency and Ativan PRN. Patient REFUSES to allow provider to gain collateral. He states " there is no one to contact. DO NOT CONTACT NEISHA if so its a HIPAA violation." Mental Status Exam - Vital signs Last Vital Signs Temp 98.4 F 08/24/18 12:00 Pulse 88 08/24/18 09:09 Resp 14 08/24/18 07:40 BP 113/57 08/24/18 09:09 Pulse Ox 90 08/24/18 07:40 - Exam Narrative exam: Mental Status Exam Appearance: calm, cooperative Behavior: poor eye contact Speech: regular rate and tone Mood: "horrible" Affect: congruent to mood Thought Process: circumstantial Thought Content: denies SI/HI's ; endorses intermittent AH's and paranoid delusions Motor Activity: ambulatory Cognition: A/O x3 Insight: poor Judgment: poor Assessment and Plan Impression: Hx of Depression/Anxiety DO. Opioid Use DO. Today the patient is calm and cooperative during the assessment. Recommendation/Plan: 1. Continue 1013. 2. Gather collateral information. 3. Continue home Effexor 150 mg PO, Seoquel 200 mg PO HS, and Klonopin 2 mg PO BID. Discussed possible suicidality/medication induced derik with the patient reference Effexor. A medically supervised detox from benzos is recommended or at least taper the dose. Opioids and Benzodiazepines are not recommended to be taken concurrently due to risk of respiratory depression, falls, cognitive effects. Tolerance and dependence discussed. . Disposition: Once collateral information is gathered, proper dispo will be determined. Will staff with Dr. Aidan Tello.
--- NOTE | 2018-08-24 13:56 | Progress Note ---
Subjective - Reason for Consult Consult date: 08/24/18 Reason for consult: Psychiatric Follow-up Evaluation - Chief Complaint Chief complaint: "" 28-year-old white male presented with a chief complaint of seizure. Today the patient is calm and cooperative during the assessment. His presentation is different from yesterday. His affect is flat with poor eye contact. He was asked about how is was feeling, he stated, "I' m not sure." He took several seconds to acknowledge not being suicidal when asked. He stated that he would like to move back home with his ,other. He denies SI/HI's and AVH's. He denies any side effects of his medications. Mental Status Exam - Vital signs Last Vital Signs Temp 98.4 F 08/24/18 12:00 Pulse 88 08/24/18 09:09 Resp 14 08/24/18 07:40 BP 113/57 08/24/18 09:09 Pulse Ox 90 08/24/18 07:40
--- NOTE | 2018-08-24 14:23 | Progress Note ---
Assessment and Plan Benzodiazepine withdrawal ? - suspect pseudoseizure - negative CT/MRI brain - Started on Keppra, neurology following - patient stated that he does not want to be detoxed for benzo and stated very clearly that he will start taking heroine if he is not prescribed benzo. doubt his seizure episodes as pseudoseizure as he doesnot want to get weaned off from klonopine. h/o SI - on 1013, psych following - patient currently has no place to go Hypertension, stable Seizure disorder, suspect pseudoseizure - on keppra Hypothyroidism, on synthroid Opioid use disorder, continuous use-cannot rule out diversion Major depressive disorder anxiety disorder, unspecified PTSD - Continue home Effexor 150 mg PO, Seoquel 200 mg PO HS, and Klonopin 2 mg PO BID. DVT prophylaxis Brief history: 28-year-old history of hypertension, seizure, PTSD, hypothyroidism, anxiety, depression being at [place] for suicide ideation was sent to the emergency room for evaluation of seizure. He is having episodes where he has random leg movements with shaking w/o change in mental status, any postictal phage, w/o tongue bite or no loss of control of bladder or bowel. Physical exam: General appearance: Present: no acute distress, well-nourished - EENT Eyes: PERRL, EOM intact ENT: hearing intact, clear oral mucosa Ears: bilateral: normal - Neck Neck: supple, normal ROM - Respiratory Respiratory effort: normal Respiratory: bilateral: CTA - Cardiovascular Rhythm: regular Heart Sounds: Present: S1 & S2. Absent: gallop, rub Extremities: pulses intact, No edema, normal color, Full ROM - Gastrointestinal General gastrointestinal: Present: soft, non-tender, non-distended, normal bowel sounds - Integumentary Integumentary: clear, warm, dry - Musculoskeletal Musculoskeletal: 1, strength equal bilaterally - Neurologic Neurologic: moves all extremities - Psychiatric Psychiatric: memory intact, appropriate mood/affect, intact judgment & insight Subjective Date of service: 08/24/18 Interval history: pt seen and exmained No acute event o/n tolerating diet, frequently requesting for ativan stating he is going to have seizure/PTSD attack had another episode of episode of frequent random leg shaking but he was able to follow commend during that episode Objective - Constitutional Vitals: Vital Signs - 12hr 08/24/18 08/24/18 08/24/18 02:30 02:40 02:50 Temperature Pulse Rate 93 H 92 H 90 Pulse Rate [ Apical] Respiratory 9 L 9 L 11 L Rate Blood Pressure 108/56 108/56 108/56 O2 Sat by Pulse Oximetry 08/24/18 08/24/18 08/24/18 03:00 03:10 03:20 Temperature Pulse Rate 90 87 82 Pulse Rate [ Apical] Respiratory 11 L 10 L 11 L Rate Blood Pressure 108/56 101/60 101/60 O2 Sat by Pulse Oximetry 08/24/18 08/24/18 08/24/18 03:30 03:37 03:40 Temperature 97.7 F Pulse Rate 84 86 Pulse Rate [ Apical] Respiratory 9 L 10 L Rate Blood Pressure 101/60 101/60 O2 Sat by Pulse Oximetry 08/24/18 08/24/18 08/24/18 03:50 04:00 04:10 Temperature 97.7 F Pulse Rate 82 85 87 Pulse Rate [ 86 Apical] Respiratory 8 L 9 L 10 L Rate Blood Pressure 101/60 108/58 108/58 O2 Sat by Pulse 98 Oximetry 08/24/18 08/24/18 08/24/18 04:20 04:30 04:40 Temperature Pulse Rate 86 84 80 Pulse Rate [ Apical] Respiratory 10 L 8 L 9 L Rate Blood Pressure 108/58 108/58 108/58 O2 Sat by Pulse Oximetry 08/24/18 08/24/18 08/24/18 04:50 05:00 05:10 Temperature Pulse Rate 87 86 83 Pulse Rate [ Apical] Respiratory 9 L 10 L 12 Rate Blood Pressure 108/58 97/61 97/61 O2 Sat by Pulse Oximetry 08/24/18 08/24/18 08/24/18 05:20 05:30 05:40 Temperature Pulse Rate 84 83 86 Pulse Rate [ Apical] Respiratory 9 L 8 L 10 L Rate Blood Pressure 97/61 97/61 97/61 O2 Sat by Pulse Oximetry 08/24/18 08/24/18 08/24/18 05:50 06:00 06:10 Temperature Pulse Rate 83 81 78 Pulse Rate [ Apical] Respiratory 9 L 11 L 8 L Rate Blood Pressure 97/61 104/52 97/61 O2 Sat by Pulse Oximetry 08/24/18 08/24/18 08/24/18 06:20 06:30 06:40 Temperature Pulse Rate 82 79 81 Pulse Rate [ Apical] Respiratory 11 L 10 L 10 L Rate Blood Pressure 97/61 97/61 97/61 O2 Sat by Pulse Oximetry 08/24/18 08/24/18 08/24/18 06:50 07:01 07:36 Temperature Pulse Rate 96 H 109 H Pulse Rate [ Apical] Respiratory 12 Rate Blood Pressure 97/61 97/61 104/57 O2 Sat by Pulse Oximetry 08/24/18 08/24/18 08/24/18 07:40 09:09 12:00 Temperature 98.4 F Pulse Rate 83 88 Pulse Rate [ Apical] Respiratory 14 Rate Blood Pressure 104/57 113/57 O2 Sat by Pulse 90 Oximetry - Labs CBC & Chem 7: 08/19/18 04:08 08/19/18 04:08
[2018-08-24] MEDS: HABITROL TD SCH ×2 (16:48→22:12)
[2018-08-24] MEDS: KEPPRA PO SCH (22:00)
[2018-08-24] MEDS: MILK OF MAGNESIA PO PRN (22:34)
[2018-08-25] MEDS: ATIVAN IV PRN
[2018-08-25] MEDS: VISTARIL PO PRN ×3 (06:02→14:06)
[2018-08-25] MEDS: MILK OF MAGNESIA PO PRN (06:02)
[2018-08-25] MEDS: SYNTHROID PO SCH (06:02)
[2018-08-25] MEDS: COZAAR PO SCH (10:19)
[2018-08-25] MEDS: KEPPRA PO SCH (10:20)
[2018-08-25] MEDS: VITAMIN B-1 PO SCH (10:20)
[2018-08-25] MEDS: THERAGRAN Tab PO SCH (10:20)
[2018-08-25] MEDS: LOVENOX SUB-Q SCH (10:20)
[2018-08-25] MEDS: NEURONTIN PO SCH (10:20)
[2018-08-25] MEDS: SODIUM CHLORIDE FLUSH SYRINGE 10 ML IV SCH (10:21)
--- NOTE | 2018-08-25 10:29 | Discharge Summary ---
Providers - Providers Date of Admission: 08/18/18 23:17 Date of discharge: 08/25/18 Attending physician: IGNACIA TORRES 08/19/18 14:32 Consult to Mental Health [CONS] Routine Reason For Exam: SI Place consult to:: mental health Notified:: yes Phone number called:: [phone] Was contact made?: Yes If yes, spoke with:: carmencita Time called:: 15:48 08/22/18 13:57 Consult to Physician [CONS] Routine Comment: Consulting Provider: ELIZABETH LING Physician Instructions: Reason For Exam: seizure 08/22/18 15:10 Consult to Physician [CONS] Routine Comment: Consulting Provider: JEANNETTE ERICKSON Physician Instructions: Reason For Exam: seizure Primary care physician: BART BOOTHE Hospitalization Condition: Fair Pertinent studies: CT head, Brain MRI Hospital course: Brief history: 28-year-old history of hypertension, seizure, PTSD, hypothyroidism, anxiety, depression being at [place] for suicide ideation was sent to the emergency room for evaluation of seizure. He is having episodes where he has random leg movements with shaking w/o change in mental status, w/o any postictal phage, w/o tongue bite or no loss of control of bladder or bowel. Patient was evaluated by neurology, started on keppra. He is medically clear for discharge. psych also evaluated the patient and cleared for discharge with outpt follow up. Discharge diagnosis and management: Benzodiazepine withdrawal ? - Presented with c/o seizure like activity after changing klonopine to 2mg tid to BID b/o sedation and drowsiness - suspect pseudoseizure. Patient stated that he does not want to be detoxed for benzo and stated very clearly that he will start taking heroine if he is not prescribed benzo. doubt his seizure episodes as pseudoseizure as he does not want to get weaned off from klonopine. - negative CT/MRI brain - Started on Keppra, neurology was following h/o SI - Placed on 1013, psych was following - Rescind 1013 by psych on discharge Hypertension, stable on home meds Seizure disorder, suspect pseudoseizure ? - on keppra Hypothyroidism, on synthroid Opioid use disorder, continuous use-cannot rule out diversion Major depressive disorder anxiety disorder, unspecified PTSD - Psych recommended to continue home Effexor 150 mg PO, Seoquel 200 mg PO HS, and Klonopin 2 mg PO BID. DVT prophylaxis with lovenox Physical exam: General appearance: Present: no acute distress, well-nourished - EENT Eyes: PERRL, EOM intact ENT: hearing intact, clear oral mucosa Ears: bilateral: normal - Neck Neck: supple, normal ROM - Respiratory Respiratory effort: normal Respiratory: bilateral: CTA - Cardiovascular Rhythm: regular Heart Sounds: Present: S1 & S2. Absent: gallop, rub Extremities: pulses intact, No edema, normal color, Full ROM - Gastrointestinal General gastrointestinal: Present: soft, non-tender, non-distended, normal bowel sounds - Integumentary Integumentary: clear, warm, dry - Musculoskeletal Musculoskeletal: 1, strength equal bilaterally - Neurologic Neurologic: moves all extremities - Psychiatric Psychiatric: memory intact, appropriate mood/affect, intact judgment & insight Disposition: DC-01 TO HOME OR SELFCARE Time spent for discharge: 34 minutes Core Measure Documentation - Palliative Care Palliative Care/ Comfort Measures: Not Applicable - Core Measures Any of the following diagnoses?: none Exam - Constitutional Vitals: Temp Pulse Resp BP Pulse Ox 97.8 F 96 H 16 113/63 94 08/25/18 05:13 08/25/18 10:19 08/25/18 05:13 08/25/18 10:19 08/25/18 05:13 Plan Activity: advance as tolerated Weight Bearing Status: Weight Bear as Tolerated Diet: low fat, low salt Additional Instructions: Follow up with his psychiatrist or [facility] for outpatient services. Also, the patient can follow up with [facility] (benzos/opioid taper). Follow up with: BART BOOTHE MD [Primary Care Provider] - 3-5 Days Prescriptions: clonazePAM [KlonoPIN] 2 mg PO BID #6 tablet Gabapentin 600 mg PO BID #10 levETIRAcetam [Keppra TAB] 750 mg PO BID #60 tablet Levothyroxine [Synthroid] 100 mcg PO QAM #30 tablet Losartan Potassium 100 mg PO DAILY #30 SEROquel 200 mg PO HS #10 Venlafaxine HCl [Venlafaxin ER] 150 mg PO QDAY #10 cap.er.24h
[2018-08-25] MEDS: EFFEXOR XR PO SCH (11:10)
[2018-08-25] MEDS: SUBOXONE 2 MG-0.5 MG SL SCH (11:11)
[2018-08-25 12:01] VITALS: BP 112/65
--- NOTE | 2018-08-25 12:21 | Progress Note ---
Subjective - Reason for Consult Consult date: 08/25/18 Reason for consult: Psychiatry Follow-up - Chief Complaint Chief complaint: "I'm okay" 28-year-old white male presented with a chief complaint of seizure. Today the patient is calm and cooperative during the assessment. He stated that he would like to be tapered off benzos and opiods "slowly." He was asked about his PTSD, he stated, "I prefer not talk about it." He stated that he has a psychiatrist and he plan to follow up with him when discharged. He denies SI/HI's and AVH's. He denies any side effects of his medications. Mental Status Exam - Vital signs Last Vital Signs Temp 98.6 F 08/25/18 11:59 Pulse 86 08/25/18 11:59 Resp 18 08/25/18 11:59 BP 112/65 08/25/18 11:59 Pulse Ox 97 08/25/18 11:59 - Exam Narrative exam: MSE: Appearance: calm, cooperative Behavior: regular eye contact Speech: regular rate and tone Mood: "okay" Affect: congruent to mood Thought Process: linear Thought Content: denies SI/HI's and AVH's Motor Activity: ambulatory Cognition: A/O x3 Insight: appropriate Judgment: appropriate Assessment and Plan Impression: Hx of Depression/Anxiety DO. Opioid Use DO. Today the patient is calm and cooperative during the assessment. The patient is no threat to self. Recommendation/Plan: The patient's 1013 will not be extended. Continue home medications Effexor 150 mg PO, Seoquel 200 mg PO HS, and Klonopin 2 mg PO BID. Discussed possible suicidality/medication induced derik with the patient reference Effexor. Discussed possible metabolic side effects of Seroquel with the patient. Educated the patient on not taking benzos and opioids concurrently, he understood. Dispo: The patient can follow up with his psychiatrist or [facility] for outpatient services. Also, the patient can follow up with [facility] (benzos/opioid taper). Staffed with Dr Cha.
== END 2018-08-25 16:00 | DRG 101 ==
LOC: ED 21:34 → 4A 23:17 → IMCU 08-22 18:12 → 3A 08-24 15:48
PROVIDERS: ADMIT Internal Medicine; ATTEND Internal Medicine
DX: G40.909 Epilepsy, unspecified, not intractable, without status epilepticus (principal); F13.239 Sedative, hypnotic or anxiolytic dependence with withdrawal, unspecified; R45.851 Suicidal ideations; I10 Essential (primary) hypertension; F43.10 Post-traumatic stress disorder, unspecified; E03.9 Hypothyroidism, unspecified; F32.9 Major depressive disorder, single episode, unspecified; F41.9 Anxiety disorder, unspecified; F17.200 Nicotine dependence, unspecified, uncomplicated; F11.10 Opioid abuse, uncomplicated; Z82.49 Family history of ischemic heart disease and other diseases of the circulatory system; Z79.899 Other long term (current) drug therapy
CPT/HCPCS: 36415; 70450; 70551; 80048; 80053; 80320; 82550; 82962; 83735; 85025; 85610; 85730; G0378; G0480; J1200; J1650; J1953; J2060; J2405; J3486; J7030; Q0177